=== PATIENT | female | born 1970 | race Caucasian/White ===

== ENCOUNTER → 2017-07-09 | Outpatient (CLI) | payer OTHER ==
--- NOTE | 2017-07-14 23:03 | MR ---
EXAMINATION TYPE: MR shoulder LT wo con DATE OF EXAM: 07/09/2017 COMPARISON: NONE HISTORY: Left shoulder pain TECHNIQUE: Multiplanar, multisequence imaging of the left shoulder is performed without contrast. FINDINGS: Subscapularis tendon is intact. Biceps tendon is intact. Glenoid ronaldo appear intact. There is metal artifact from surgery at the greater tuberosity of the humerus. There is no subacromia l impingement. The supraspinatus tendon shows very mild increased signal without a full-thickness tea r. There is no retraction. There is minor spurring at the AC joint. I see no fracture. There is some thickening of the inferior glenoid labrum. There is minor spurring on the inferior humeral head. 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 No evidence of rotator cuff comp lete tear. Minimal signal changes in the supraspinatus tendon consistent with mild tendinitis.
== END | disposition home or self-care (01) ==
LOC: RADMRIMAIN 10:34
PROVIDERS: ATTEND Orthopaedic Surgery
DX: Z47.89 Encounter for other orthopedic aftercare (principal); M19.012 Primary osteoarthritis, left shoulder

== ENCOUNTER → 2017-10-05 | Outpatient (CLI) | payer OTHER ==
--- NOTE | 2017-10-06 14:13 | MM ---
Reason for exam: screening (asymptomatic). History: Patient is postmenopausal. Family history of breast cancer in paternal grandmother and breast cancer in paternal aunt. Physical Findings: A clinical breast exam by your physician is recommended on an annual basis and results should be correlated with mammographic findings. MG Screening Mammo w CAD Bilateral CC and MLO view(s) were taken. The breast tissue is heterogeneously dense. This may lower the sensitivity of mammography. No suspicious abnormality. ASSESSMENT: Negative, BI-RAD 1 RECOMMENDATION: Routine screening mammogram of both breasts in 1 year.
== END | disposition home or self-care (01) ==
LOC: RADMAMWWP 10:50
PROVIDERS: ATTEND Family Medicine
DX: Z12.31 Encounter for screening mammogram for malignant neoplasm of breast (principal)
CPT/HCPCS: 77067

== ENCOUNTER 2018-05-06 00:54 | Emergency (ER) | payer OTHER ==
[2018-05-06 01:02] VITALS: BP 137/98; RESP 18; TEMP 98
--- NOTE | 2018-05-06 01:17 | ED ---
General Adult HPI - General Chief complaint: Upper Respiratory Infection Stated complaint: SOB,congestion Time Seen by Provider: 05/06/18 01:07 Source: patient Mode of arrival: ambulatory Limitations: no limitations - History of Present Illness Initial comments: Rajani is a pleasant 47-year-old female who presents to the emergency department today for evaluation of 2 weeks of nonproductive cough. Patient reports that for the past 2 weeks she's had a nonproductive cough as well as some nasal congestion. She reports that her cough seems to be worse at night. She reports feeling a tickle in her throat and feels that she can't cough anything up. She reports that this is been persistent without any improvement. She has tried [id number] medications including cough drops with no improvement. She reports that this evening she just couldn't tolerate it anymore so she came to the ER for evaluation. - Related Data Previous Rx's Medication Instructions Recorded Azithromycin [Zithromax] 0 mg PO DIRECTED #6 tab 05/06/18 Fluticasone Nasal [place] [Flonase 1 spray EA NOSTRIL DAILY #1 bottle 05/06/18 Nasal [place]] Loratadine [Claritin] 10 mg PO DAILY #30 tab 05/06/18 predniSONE 40 mg PO DAILY #10 tab 05/06/18 Allergies Allergy/AdvReac Type Severity Reaction Status Date / Time amoxicillin Allergy Anaphylaxis Verified 05/06/18 01:03 ciprofloxacin Allergy Anaphylaxis Verified 05/06/18 01:03 Penicillins Allergy Anaphylaxis Verified 05/06/18 01:03 tetracycline Allergy Anaphylaxis Verified 05/06/18 01:03 Review of Systems ROS Statement: Those systems with pertinent positive or pertinent negative responses have been documented in the HPI. ROS Other: All systems not noted in ROS Statement are negative. Past Medical History Past Medical History: Hypertension, Pneumonia History of Any Multi-Drug Resistant Organisms: None Reported Past Surgical History: Section, Hysterectomy, Orthopedic Surgery, Tonsillectomy Past Psychological History: No Psychological Hx Reported Smoking Status: Former smoker Past Alcohol Use History: None Reported Past Drug Use History: None Reported General Exam - General Exam Comments Initial Comments: Physical Exam GENERAL: Patient is well-developed and well-nourished. Patient is nontoxic and well- hydrated and is in no distress. HENT: Normocephalic, Atraumatic. Inflame nasal turbinates Post nasal drip TMs with scars bilaterally consistent with history of previous tympanostomy tubes EYES: PERRL, EOMI PULMONARY: Unlabored respirations. No audible rales rhonchi or wheezing was noted. CARDIOVASCULAR: There is a regular rate and rhythm without any murmurs gallops or rubs. ABDOMEN: Soft and nontender with normal bowel sounds. SKIN: Skin is clear with no lesions or rashes and otherwise unremarkable. : Deferred NEUROLOGIC: Patient is alert and oriented x3. Moving all extremities spontaneously MUSCULOSKELETAL: Normal extremities with adequate strength and full range of motion. No lower extremity swelling or edema. No calf tenderness. PSYCHIATRIC: Normal psychiatric evaluation. Limitations: no limitations Limitations: no limitations Course Vital Signs 05/06/18 05/06/18 05/06/18 00:59 01:48 02:01 Temperature 98 F Pulse Rate 87 70 72 Respiratory 18 18 18 Rate Blood Pressure 137/98 O2 Sat by Pulse 98 Oximetry Medical Decision Making - Medical Decision Making Patient was seen and evaluated history is obtained from the patient Patient's history and physical exam are concerning for viral upper respiratory infection versus postnasal drip secondary to ALLERGIES. Chest x-ray was ordered Chest x-ray with no acute findings Results were discussed with the patient she reports only minimal improvement after DuoNeb Supportive care measures including nasal spray, daily antihistamine, short burst of steroids were discussed with patient. Patient is agreeable. Return parameters were discussed with patient pertaining to care were answered and patient was discharged home in stable condition. Disposition Clinical Impression: Upper respiratory infection Disposition: HOME SELF-CARE Condition: Stable Instructions: Upper Respiratory Infection (ED) Prescriptions: Azithromycin [Zithromax] 0 mg PO DIRECTED #6 tab Fluticasone Nasal [place] [Flonase Nasal [place]] 1 spray EA NOSTRIL DAILY #1 bottle Loratadine [Claritin] 10 mg PO DAILY #30 tab predniSONE 40 mg PO DAILY #10 tab Is patient prescribed a controlled substance at d/c from ED?: No Referrals: Tyler Andrade MD [Primary Care Provider] - 1-2 days
[2018-05-06] MEDS ORDERED: IPRATROPIUM-ALBUTEROL 3 ML NEB INHALATION STA (01:40)
--- NOTE | 2018-05-06 01:59 | XR ---
EXAMINATION TYPE: XR chest 2V DATE OF EXAM: 05/06/2018 COMPARISON: NONE HISTORY: Short of breath TECHNIQUE: Frontal and lateral views of the chest are obtained. FINDINGS: Heart and mediastinum are normal. Lungs are clear. Diaphragm is normal. Bony thorax is nor mal. Pulmonary vascularity is normal. IMPRESSION: Normal chest.
[2018-05-06 02:01] VITALS: PULSE 72
== END 2018-05-06 03:14 | disposition home or self-care (01) ==
LOC: EC 00:54
DX: J06.9 Acute upper respiratory infection, unspecified (principal); Z88.0 Allergy status to penicillin; Z88.1 Allergy status to other antibiotic agents; Z87.891 Personal history of nicotine dependence
CPT/HCPCS: 71046; 94640; 99285

== ENCOUNTER → 2018-10-13 | Outpatient (CLI) | payer MEDICARE, OTHER ==
--- NOTE | 2018-10-17 09:15 | MM ---
Reason for exam: screening (asymptomatic). Last mammogram was performed 1 year ago. History: Patient is postmenopausal. Family history of breast cancer in paternal grandmother and breast cancer in paternal aunt. Physical Findings: A clinical breast exam by your physician is recommended on an annual basis and results should be correlated with mammographic findings. MG 3D Screening Mammo W/Cad Bilateral CC and MLO view(s) were taken. Prior study comparison: October 05, 2017, bilateral MG screening mammo w CAD. There are scattered fibroglandular densities. No significant changes when compared with prior studies. ASSESSMENT: Negative, BI-RAD 1 RECOMMENDATION: Routine screening mammogram of both breasts in 1 year.
== END | disposition home or self-care (01) ==
LOC: RADMAMWWP 11:32
PROVIDERS: ATTEND Family Medicine
DX: Z12.31 Encounter for screening mammogram for malignant neoplasm of breast (principal)
CPT/HCPCS: 77063; 77067

== ENCOUNTER 2019-04-18 18:58 | Emergency (ER) | payer MEDICARE, OTHER ==
[2019-04-18 19:07] VITALS: RESP 18
[2019-04-18] MEDS ORDERED: SODIUM CHLORIDE 0.9% 1,000 ML IV STA (19:10)
--- NOTE | 2019-04-18 19:32 | ED ---
General Adult HPI - General Chief complaint: Recheck/Abnormal Lab/Rx Stated complaint: high heart rate Time Seen by Provider: 04/18/19 19:10 Source: patient Mode of arrival: wheelchair Limitations: no limitations - History of Present Illness Initial comments: Dictation was produced using [employer] dictation software. please excuse any gra mmatical, word or spelling errors. Chief Complaint: 48-year-old female presents with instruction from primary care physician come to the emergency department for URI type symptoms. History of Present Illness: He 8-year-old female she has past medical history of hypertension and rheumatoid arthritis. She was at walk-in clinic at her primary care physician's office today when he told her to come to the emergency department. Patient was found to be tachycardic in the 120s. She was checked for flu which was negative according to patient. Patient states she's been having URI symptoms for the last 2-3 days. She reports cough, sore throat and congestion. Patient denies any chest pain or shortness of breath. She denies any abdominal pain. Patient otherwise feels pretty well. She took Tylenol. She states she's been abstaining from cold medications that contain Sudafed or other stimulants. The ROS documented in this emergency department record has been reviewed and confirmed by me. Those systems with pertinent positive or negative responses have been documented in the HPI. All other systems are other negative and/or noncontributory. PHYSICAL EXAM: General Impression: Alert and oriented x3, not in acute distress HEENT: Normocephalic atraumatic, extra-ocular movements intact, pupils equal and reactive to light bilaterally, mucous membranes moist. Cardiovascular: Tachycardic Chest: Lungs clear to auscultation bilaterally, no rhonchi, no wheeze, no rales Abdomen: Bowel sounds present, abdomen soft, non-tender, non-distended, no organomegaly Musculoskeletal: Pulses present and equal in all extremities, no peripheral edema Motor: no focal deficits noted Neurological: CN II-XII grossly intact, no focal motor or sensory deficits noted Skin: Intact with no visualized rashes Psych: Normal affect and mood ED course: 48-year-old female presents with URI-type symptoms as upon arrival shows heart rate of 120, rest of vital signs within acceptable limits. Patient was sent here from walking clinic because she was tachycardic Laboratory evaluation obtained. Leukocytosis of 15.7. Metabolic panel is unremarkable. Urinalysis and group A strep is negative. Chest x-rays negative. Patient given fluids. Heart rate is improved. Patient with for discharge. Click or presentation likely secondary to viral URI. Patient told to follow-up with her primary care physician upon discharge. EKG interpretation: Ventricular rate 107, sinus tachycardia,. 146, QRS 70, QTc 435.. No OR prolongation, no QTC prolongation, no ST or T-wave changes noted. Overall, this EKG is unremarkable - Related Data Home Medications Medication Instructions Recorded Confirmed Losartan [Cozaar] 25 mg PO DAILY 04/18/19 04/18/19 Allergies Allergy/AdvReac Type Severity Reaction Status Date / Time amoxicillin Allergy Anaphylaxis Verified 04/18/19 20:17 ciprofloxacin Allergy Anaphylaxis Verified 04/18/19 20:17 Penicillins Allergy Anaphylaxis Verified 04/18/19 20:17 tetracycline Allergy Anaphylaxis Verified 04/18/19 20:17 Review of Systems ROS Statement: Those systems with pertinent positive or pertinent negative responses have been documented in the HPI. ROS Other: All systems not noted in ROS Statement are negative. Past Medical History Past Medical History: Hypertension, Pneumonia, Rheumatoid Arthritis (RA) History of Any Multi-Drug Resistant Organisms: None Reported Past Surgical History: Section, Hysterectomy, Orthopedic Surgery, Tonsillectomy Past Psychological History: No Psychological Hx Reported Smoking Status: Former smoker Past Alcohol Use History: None Reported Past Drug Use History: None Reported General Exam Limitations: no limitations Course Vital Signs 04/18/19 04/18/19 19:03 21:17 Temperature 98.2 F 98.1 F Pulse Rate 120 H 88 Respiratory 18 18 Rate Blood Pressure 144/93 140/108 O2 Sat by Pulse 97 99 Oximetry Medical Decision Making - Lab Data Result diagrams: 04/18/19 19:47 04/18/19 19:47 Lab Results 04/18/19 04/18/19 04/18/19 Range/Units 19:47 19:47 19:47 WBC 15.7 H (3.8-10.6) k/uL RBC 5.20 (3.80-5.40) m/uL Hgb 14.8 (11.4-16.0) gm/dL Hct 44.0 (34.0-46.0) % MCV 84.5 (80.0-100.0) fL MCH 28.4 (25.0-35.0) pg MCHC 33.6 (31.0-37.0) g/dL RDW 12.4 (11.5-15.5) % Plt Count 266 (150-450) k/uL Neutrophils % 84 % Lymphocytes % 9 % Monocytes % 4 % Eosinophils % 2 % Basophils % 1 % Neutrophils # 13.2 H (1.3-7.7) k/uL Lymphocytes # 1.4 (1.0-4.8) k/uL Monocytes # 0.6 (0-1.0) k/uL Eosinophils # 0.3 (0-0.7) k/uL Basophils # 0.1 (0-0.2) k/uL Sodium 139 (137-145) mmol/L Potassium 4.2 (3.5-5.1) mmol/L Chloride 106 (98-107) mmol/L Carbon Dioxide 24 (22-30) mmol/L Anion Gap 9 mmol/L BUN 17 (7-17) mg/dL Creatinine 0.74 (0.52-1.04) mg/dL Est GFR (CKD-EPI)AfAm >90 (>60 ml/min/1.73 sqM) Est GFR (CKD-EPI)NonAf >90 (>60 ml/min/1.73 sqM) Glucose 120 H (74-99) mg/dL Calcium 9.7 (8.4-10.2) mg/dL Magnesium 2.0 (1.6-2.3) mg/dL Troponin I <0.012 (0.000-0.034) ng/mL TSH 1.500 (0.465-4.680) mIU/L Urine Color Urine Appearance (Clear) Urine pH (5.0-8.0) Ur Specific [place] (1.001-1.035) Urine Protein (Negative) Urine Glucose (UA) (Negative) Urine Ketones (Negative) Urine Blood (Negative) Urine Nitrite (Negative) Urine Bilirubin (Negative) Urine Urobilinogen (<2.0) mg/dL Ur Leukocyte Esterase (Negative) Group A Strep Rapid (Negative) 04/18/19 04/18/19 Range/Units 19:55 19:55 WBC (3.8-10.6) k/uL RBC (3.80-5.40) m/uL Hgb (11.4-16.0) gm/dL Hct (34.0-46.0) % MCV (80.0-100.0) fL MCH (25.0-35.0) pg MCHC (31.0-37.0) g/dL RDW (11.5-15.5) % Plt Count (150-450) k/uL Neutrophils % % Lymphocytes % % Monocytes % % Eosinophils % % Basophils % % Neutrophils # (1.3-7.7) k/uL Lymphocytes # (1.0-4.8) k/uL Monocytes # (0-1.0) k/uL Eosinophils # (0-0.7) k/uL Basophils # (0-0.2) k/uL Sodium (137-145) mmol/L Potassium (3.5-5.1) mmol/L Chloride (98-107) mmol/L Carbon Dioxide (22-30) mmol/L Anion Gap mmol/L BUN (7-17) mg/dL Creatinine (0.52-1.04) mg/dL Est GFR (CKD-EPI)AfAm (>60 ml/min/1.73 sqM) Est GFR (CKD-EPI)NonAf (>60 ml/min/1.73 sqM) Glucose (74-99) mg/dL Calcium (8.4-10.2) mg/dL Magnesium (1.6-2.3) mg/dL Troponin I (0.000-0.034) ng/mL TSH (0.465-4.680) mIU/L Urine Color Yellow Urine Appearance Clear (Clear) Urine pH 5.5 (5.0-8.0) Ur Specific [place] 1.018 (1.001-1.035) Urine Protein Negative (Negative) Urine Glucose (UA) Negative (Negative) Urine Ketones Negative (Negative) Urine Blood Negative (Negative) Urine Nitrite Negative (Negative) Urine Bilirubin Negative (Negative) Urine Urobilinogen <2.0 (<2.0) mg/dL Ur Leukocyte Esterase Negative (Negative) Group A Strep Rapid Negative (Negative) Disposition Clinical Impression: URI (upper respiratory infection) Disposition: HOME SELF-CARE Condition: Good Instructions (If sedation given, give patient instructions): Upper Respiratory Infection (DC) Is patient prescribed a controlled substance at d/c from ED?: No Referrals: Tyler Andrade MD [Primary Care Provider] - 1-2 days Time of Disposition: 22:07
[2019-04-18 20:10] LABS: Basophils # (A) 0.1 k/uL (0-0.2); Basophils % (A) 1 %; Eosinophils # (A) 0.3 k/uL (0-0.7); Eosinophils % (A) 2 %; HGB 14.8 gm/dL (11.4-16.0); Lymphocytes # (A) 1.4 k/uL (1.0-4.8); Lymphocytes % (A) 9 %; MCH 28.4 pg (25.0-35.0); MCHC 33.6 g/dL (31.0-37.0); MCV 84.5 fL (80.0-100.0); Mean Platelet Volume 7.5; Monocytes # (A) 0.6 k/uL (0-1.0); Monocytes % (A) 4 %; Neutrophils # (A) 13.2 k/uL (1.3-7.7); Neutrophils % (A) 84 %; Platelet Count 266 k/uL (150-450); RDW 12.4 % (11.5-15.5); WBC 15.7 k/uL (3.8-10.6)
[2019-04-18 20:15] LABS: Appearance,Urine Clear (Clear); Bilirubin,Urine Negative (Negative); Blood,Urine Negative (Negative); Color,Urine Yellow; Glucose,Urine (UA) Negative (Negative); Ketones,Urine Negative (Negative); Leukocyte Esterase,Urine Negative (Negative); Nitrite,Urine Negative (Negative); PH, Urine 5.5 (5.0-8.0); Protein,Urine Negative (Negative); Specific Gravity,Urine 1.018 (1.001-1.035); Urobilinogen,Urine <2.0 mg/dL (<2.0)
[2019-04-18 20:20] LABS: African American GFR (CKD) >90 (>60 ml/min/1.73 sqM); Anion Gap 9 mmol/L; Blood Urea Nitrogen 17 mg/dL (7-17); Calcium 9.7 mg/dL (8.4-10.2); Carbon Dioxide 24 mmol/L (22-30); Chloride 106 mmol/L (98-107); Glucose 120 mg/dL (74-99); Non-African American GFR(CKD) >90 (>60 ml/min/1.73 sqM); Potassium 4.2 mmol/L (3.5-5.1); Sodium 139 mmol/L (137-145)
[2019-04-18 21:37] VITALS: BP 140/108; PULSE 88; TEMP 98.1
--- NOTE | 2019-04-18 21:57 | XR ---
EXAMINATION: XR chest 2V DATE AND TIME: 04/18/2019 9:20 PM CLINICAL INDICATION: PHH; cough TECHNIQUE: Departmental protocol COMPARISON: 05/06/2018 FINDINGS: The lungs are clear. The pleural spaces are negative. The cardiac silhouette is not enlarged. The remainder of the mediastinal silhouette is unremarkable. The skeletal structures and soft tissues are negative for acute findings. IMPRESSION: NO ACUTE PROCESS.
== END 2019-04-18 22:19 | disposition home or self-care (01) ==
LOC: EC 18:58
DX: J06.9 Acute upper respiratory infection, unspecified (principal); R00.0 Tachycardia, unspecified; I10 Essential (primary) hypertension; Z87.891 Personal history of nicotine dependence; Z88.0 Allergy status to penicillin; Z88.1 Allergy status to other antibiotic agents; Z79.899 Other long term (current) drug therapy
CPT/HCPCS: 36415; 71046; 80048; 81003; 83735; 84443; 84484; 85025; 87081; 87430; 93005; 96360; 99285

== ENCOUNTER → 2019-10-31 | Day surgery (SDC) | payer MEDICARE, OTHER ==
[2019-10-27 14:48] VITALS: BMI 34.2
[~2019-10-31] MED LIST: ACETAMINOPHEN TAB 500 MG TAB ONE; ACETAMINOPHEN TAB 500 MG TAB PO ONE; BUPIVACAIN-EPI 0.25%-1:200,000 30 ML VIAL SQ ONE; DEXAMETHASONE SOD PHOSPHATE 10 MG/ML 1 ML VIAL IV ONE; GLYCOPYRROLATE 0.2 MG/ML 2 ML VIAL ONE; HEPARIN SODIUM,PORCINE 5,000 UNIT/ML 1 ML VIAL ONE; HEPARIN SODIUM,PORCINE 5,000 UNIT/ML 1 ML VIAL SQ ONE; HYDROcodone/APAP 5-325MG 1 EACH TAB ONE; HYDROcodone/APAP 5-325MG 1 EACH TAB PO ONE; HYDROmorphone (PF) 1 MG/ML ONE; HYDROmorphone 0.5 MG/0.5 ML SYRINGE IVP PRN; KETOROLAC 30 MG/ML 1 ML VIAL ONE; LACTATED RINGERS 1,000 ML IV ONE; LACTATED RINGERS 1,000 ML IV SCH; LIDOCAINE 1% (10MG/ML) FOR IV START INTRADERMA ONE; LIDOCAINE 1% INJ 10MG/ML (20 ML MDV) ONE; MIDAZOLAM 2 MG/2 ML VIAL IV ONE; MIDAZOLAM 2 MG/2 ML VIAL IV PRN; MIDAZOLAM 2 MG/2 ML VIAL ONE; NEOSTIGMINE 1 MG/ML 10 ML VIAL ONE; ONDANSETRON 4 MG/2 ML VIAL IVP ONE; ONDANSETRON 4 MG/2 ML VIAL ONE; PROPOFOL 10 MG/ML 20 ML VIAL IV ONE; Pre Op ABX Message 1 EACH MISC MISCELLANE ONE; ROCURONIUM BROMIDE 10 MG/ML 5 ML VIAL IV ONE; SCOPOLAMINE 1.5MG/72HR PATCH TRANSDERM ONE; SUCCINYLCHOLINE CHLORIDE 100 MG/5 ML SYR IV ONE; fentaNYL (PF) 50 MCG/ML 2 ML AMP ONE
[2019-10-31 06:35] VITALS: RESP 16
--- NOTE | 2019-10-31 08:22 | P.GSHP ---
History of Present Illness H&P Date: 10/31/19 Chief Complaint: Abdominal pain, adhesions This a 48-year-old female complaints of chronic left-sided abdominal pain. Patient's previous history of lysis of adhesions. Patient states pain is similar to her previous adhesions. She presents today for laparoscopic lysis of adhesions. Past Medical History Past Medical History: Hypertension, Pneumonia, Rheumatoid Arthritis (RA) History of Any Multi-Drug Resistant Organisms: None Reported Past Surgical History: Section, Hysterectomy, Orthopedic Surgery, Tonsillectomy Additional Past Surgical History / Comment(s): L rotator cuff repair. Past Anesthesia/Blood Transfusion Reactions: No Reported Reaction Smoking Status: Former smoker - Past Family History Mother Family Medical History: Myocardial Infarction ([place]) Father Family Medical History: Cancer Additional Family Medical History / Comment(s): Lung Medications and Allergies Home Medications Medication Instructions Recorded Confirmed Type Losartan [Cozaar] 25 mg PO DAILY 04/18/19 10/31/19 History Allergies Allergy/AdvReac Type Severity Reaction Status Date / Time amoxicillin Allergy Anaphylaxis Verified 10/31/19 06:22 azithromycin Allergy Rash/Hives Verified 10/31/19 06:22 [From Zithromax Z-Jhonathan] ciprofloxacin Allergy Anaphylaxis Verified 10/31/19 06:22 Penicillins Allergy Anaphylaxis Verified 10/31/19 06:22 tetracycline Allergy Anaphylaxis Verified 10/31/19 06:22 Surgical - Exam Vital Signs Temp Pulse Resp BP Pulse Ox 96.9 F L 80 16 139/85 95 10/31/19 06:33 10/31/19 06:33 10/31/19 06:33 10/31/19 06:33 10/31/19 06:33 - General well developed, well nourished, no distress - Eyes PERRL - ENT normal pinna - Neck no masses - Respiratory normal expansion - Cardiovascular Rhythm: regular - Abdomen Multiple laparoscopic incision scars Abdomen: soft, non tender Assessment and Plan Assessment: Left-sided abdominal pain. Adhesions. Patient will undergo laparoscopic lysis of adhesions. Patient will resume surgery including conversion O procedure and injury to the stomach liver spleen small bowel and colon
--- NOTE | 2019-10-31 08:24 | P.OP ---
Date of Procedure: 10/31/19 Preoperative Diagnosis: Adhesions Postoperative Diagnosis: Adhesions Procedure(s) Performed: Laparoscopic lysis of adhesions Anesthesia: DANIEL Surgeon: Darinel Garcia Pathology: other (Adhesion) Condition: stable Disposition: PACU Description of Procedure: The patient's placed the operative table in supine position. She received general anesthesia. Her abdomen was prepped and draped usual fashion. An infraumbilical skin incision was made and then the umbilicus was grasped the cord clamp. The varices placed. Cavity. Position of her is no confirmed with positive drop test. The abdomen was then insufflated. After adequate insufflation a fibrillar trocar is placed. Cavity and then the laparoscope placed. Cavity. Next a 5 atrocious placed in the midline epigastric and suprapubic position and another 5 atrocious placed in the right lateral position. The left abdominal wall was examined. There were adhesions between the sigmoid colon and the abdominal wall. There was also a adhesive band located between the omentum and the abdominal wall where previous trocar site was. Using Harmonic scissors the adhesions were lysed. Care was taken to identify and preserve the bowel wall. No bleeding was seen. The portion of the adhesive band was excised and sent to pathology. The trochars withdrawn. The abdomen was desufflated. The skin was then closed interrupted 3-0 Monocryl suture. Dermabond was applied. Patient tolerated procedure well and sent to recovery in stable condition.
[2019-10-31 08:42] VITALS: TEMP 97
[2019-10-31 09:31] VITALS: PULSE 60
[2019-10-31 09:51] VITALS: BP 107/65
== END ==
LOC: OR 06:03
PROVIDERS: ATTEND Surgery
DX: K56.50 Intestinal adhesions [bands], unspecified as to partial versus complete obstruction (principal); N94.89 Other specified conditions associated with female genital organs and menstrual cycle; I10 Essential (primary) hypertension; M06.9 Rheumatoid arthritis, unspecified; K21.9 Gastro-esophageal reflux disease without esophagitis; Z87.01 Personal history of pneumonia (recurrent); Z90.710 Acquired absence of both cervix and uterus; Z90.89 Acquired absence of other organs; Z98.890 Other specified postprocedural states; Z87.891 Personal history of nicotine dependence; Z79.899 Other long term (current) drug therapy; Z88.0 Allergy status to penicillin; Z88.1 Allergy status to other antibiotic agents; Z82.49 Family history of ischemic heart disease and other diseases of the circulatory system; Z80.1 Family history of malignant neoplasm of trachea, bronchus and lung
CPT/HCPCS: 88305; 44180; J2250; J1644; J1100; J2710; J2405; J2001; J3010; J1885; J1170; J0330; J2704

== ENCOUNTER 2019-12-10 20:41 | Emergency (ER) | payer MEDICARE, OTHER ==
[2019-12-10 21:08] VITALS: RESP 16
[2019-12-10] MEDS ORDERED: SODIUM CHLORIDE 0.9% 500 ML 500 ML IV STA (21:46)
[2019-12-10 22:29] LABS: Basophils # (A) 0.1 k/uL (0-0.2); Basophils % (A) 1 %; Eosinophils # (A) 0.2 k/uL (0-0.7); Eosinophils % (A) 1 %; HCT 44.2 % (34.0-46.0); HGB 14.7 gm/dL (11.4-16.0); Lymphocytes # (A) 1.5 k/uL (1.0-4.8); Lymphocytes % (A) 11 %; MCH 28.1 pg (25.0-35.0); MCHC 33.3 g/dL (31.0-37.0); MCV 84.6 fL (80.0-100.0); Mean Platelet Volume 7.3; Monocytes # (A) 0.7 k/uL (0-1.0); Monocytes % (A) 5 %; Neutrophils # (A) 10.9 k/uL (1.3-7.7); Neutrophils % (A) 81 %; Platelet Count 267 k/uL (150-450); RBC 5.23 m/uL (3.80-5.40); RDW 12.7 % (11.5-15.5); WBC 13.5 k/uL (3.8-10.6)
[2019-12-10 22:36] LABS: Appearance,Urine Clear (Clear); Bilirubin,Urine Negative (Negative); Blood,Urine Negative (Negative); Color,Urine Light Yellow; Glucose,Urine (UA) Negative (Negative); Ketones,Urine Negative (Negative); Leukocyte Esterase,Urine Negative (Negative); Nitrite,Urine Negative (Negative); PH, Urine 5.5 (5.0-8.0); Protein,Urine Negative (Negative); Specific Gravity,Urine 1.015 (1.001-1.035); Urobilinogen,Urine <2.0 mg/dL (<2.0)
[2019-12-10 22:41] LABS: ALT 25 U/L (4-34); AST 29 U/L (14-36); African American GFR (CKD) >90 (>60 ml/min/1.73 sqM); Albumin 4.5 g/dL (3.5-5.0); Alkaline Phosphatase 85 U/L (38-126); Anion Gap 9 mmol/L; Blood Urea Nitrogen 19 mg/dL (7-17); Calcium 9.4 mg/dL (8.4-10.2); Carbon Dioxide 22 mmol/L (22-30); Chloride 107 mmol/L (98-107); Glucose 112 mg/dL (74-99); Lipase 61 U/L (23-300); Non-African American GFR(CKD) >90 (>60 ml/min/1.73 sqM); Potassium 4.6 mmol/L (3.5-5.1); Sodium 138 mmol/L (137-145); Total Bilirubin 0.6 mg/dL (0.2-1.3); Total Protein 7.1 g/dL (6.3-8.2)
--- NOTE | 2019-12-10 23:44 | CT ---
EXAMINATION TYPE: CT abdomen pelvis w con DATE OF EXAM: 12/10/2019 COMPARISON: None HISTORY: RLQ pain CT DLP: 2019.6 mGycm Automated exposure control for dose reduction was used. CONTRAST: Performed with IV Contrast, patient injected with 100 mL of Isovue 300. Images were obtained from the diaphragm to the floor the pelvis with IV contrast. Lung bases are clear. There is no pleural effusion. Heart size is normal. There is no pericardial eff usion. Liver spleen stomach pancreas gallbladder appear normal. Bile ducts are not dilated. There is no adrenal mass. Kidneys show satisfactory contrast opacification. There is no hydronephrosi s. There is normal excretion on the delayed images. There is no retroperitoneal adenopathy. Bladder distends smoothly. There is no inguinal hernia. There is no free fluid in the pelvis. There i s some fat stranding around the sigmoid colon with multiple sigmoid diverticula. The appendix is post erior and appears normal. There is no evidence of bowel obstruction. There is no ascites or free air. There is no mesenteric ad enopathy. Lumbar vertebra have normal spacing and alignment. There is mild narrowing at L4-5 disc. There is sma ll posterior disc herniation at L4-5. There is no compression fracture. The posterior elements are in tact. The bony pelvis appears intact. IMPRESSION: Sigmoid diverticulosis with evidence of diverticulitis involving the MID sigmoid colon. No drainable fluid collection. Normal appendix.
[2019-12-10 23:51] VITALS: BP 161/95; PULSE 85; TEMP 99.6
[2019-12-11] MEDS ORDERED: metroNIDAZOLE 500 MG TAB PO STA (00:01)
--- NOTE | 2019-12-11 00:11 | ED ---
General Adult HPI - General Chief complaint: Abdominal Pain Stated complaint: Abdominal Pain Time Seen by Provider: 12/10/19 21:30 Source: patient, RN notes reviewed, old records reviewed Mode of arrival: wheelchair Limitations: no limitations - History of Present Illness Initial comments: 49-year-old female patient previously for chief complaint of lower quadrant abdominal pain. Began approximately 2 PM. Patient did have lysis of adhesions [address] Cabrera. Denies any nausea or vomiting. Denies any other complaints. Systemic: Pt denies fatigue, fever/chills, rash. Pt denies weakness, night sweats, weight loss. Neuro: Pt denies headache, visual disturbances, syncope or pre-syncope. HEENT: Pt denies ocular discharge or irritation, otalgia, rhinorrhea, pharyngitis or notable lymphadenopathy. Cardiopulmonary: Pt denies chest pain, SOB, heart palpitations, dyspnea on exertion. Abdominal/GI: Pt denies n/v/d. : Pt denies dysuria, burning w/ urination, frequency/urgency. Denies new onset urinary or bowel incontinence. MSK: Pt denies myalgia, loss of strength or function in extremities. Neuro: Pt denies new onset weakness, paresthesias. - Related Data Home Medications Medication Instructions Recorded Confirmed Losartan [Cozaar] 25 mg PO DAILY 04/18/19 10/31/19 Previous Rx's Medication Instructions Recorded Docusate [Colace] 100 mg PO BID #20 capsule 10/31/19 HYDROcodone/APAP 5-325MG [[place] 1 tab PO Q6HR PRN #10 tab 10/31/19 5-325] Sulfamethox-Tmp 800-160Mg [Bactrim 1 tab PO Q12HR #20 tab 12/11/19 DS 800-160 mg] metroNIDAZOLE [Flagyl] 500 mg PO TID #21 tab 12/11/19 Allergies Allergy/AdvReac Type Severity Reaction Status Date / Time amoxicillin Allergy Anaphylaxis Verified 12/10/19 21:08 azithromycin Allergy Rash/Hives Verified 12/10/19 21:08 [From Zithromax Z-Jhonathan] ciprofloxacin Allergy Anaphylaxis Verified 12/10/19 21:08 Penicillins Allergy Anaphylaxis Verified 12/10/19 21:08 tetracycline Allergy Anaphylaxis Verified 12/10/19 21:08 Review of Systems ROS Statement: Those systems with pertinent positive or pertinent negative responses have been documented in the HPI. ROS Other: All systems not noted in ROS Statement are negative. Past Medical History Past Medical History: Hypertension, Pneumonia, Rheumatoid Arthritis (RA) History of Any Multi-Drug Resistant Organisms: None Reported Past Surgical History: Section, Hysterectomy, Orthopedic Surgery, Tonsillectomy Additional Past Surgical History / Comment(s): L rotator cuff repair. Adhesion surgery Past Anesthesia/Blood Transfusion Reactions: No Reported Reaction Past Psychological History: No Psychological Hx Reported Smoking Status: Former smoker Past Alcohol Use History: None Reported Past Drug Use History: None Reported - Past Family History Mother Family Medical History: Myocardial Infarction ([place]) Father Family Medical History: Cancer Additional Family Medical History / Comment(s): Lung General Exam - General Exam Comments Initial Comments: Constitutional: NAD, AOX3, Pt has pleasant affect. HEENT: NC/AT, trachea midline, neck supple, no lymphadenopathy. Posterior pharynx non erythematous, without exudates. External ears appear normal, without discharge. Mucous membranes moist. Eyes PERRLA, EOM intact. There is no scleral icterus. No pallor noted. Cardiopulmonary: RRR, no murmurs, rubs or gallops, no JVD noted. Lungs CTAB in anterior and posterior cordero. No peripheral edema. Abdominal exam: Abdomen soft and non-distended. Abdomen mildly tender to palpation left lower quadrant region.. Bowel sounds active in LLQ. No hepatosplenomegaly. No ecchymosis Neuro: CN II-XII grossly intact. No nuchal rigidity. No raccon eyes, no vallejo sign, no hemotympanum. No cervical spinal tenderness. MSK: No posterior calf tenderness bilaterally, homans sign negative bilaterally. Posterior tibialis and radial pulse +2 bilaterally. Sensation intact in upper and lower extremities. Full active ROM in upper and lower extremities, 5/5 stregnth. Limitations: no limitations Course Vital Signs 12/10/19 12/10/19 21:05 23:50 Temperature 99.7 F H 99.6 F Pulse Rate 88 85 Respiratory 16 16 Rate Blood Pressure 158/109 161/95 O2 Sat by Pulse 98 97 Oximetry Medical Decision Making - Medical Decision Making 49 year old female patient presents to ED with left lower quadrant abdominal pain which began earlier today. Patient did have surgery about 4 weeks ago to take down adhesions. Nasal exam displayed left lower quadrant tenderness. Laboratory investigations revealed mild leukocytosis. CT abdomen and pelvis confirmed diverticulitis no abscess no perforation. Patient has significant ALLERGY list. Has true anaphylaxis reportedly to amoxicillin fluoroquinolones tetracyclines. Patient will be placed on Bactrim and Flagyl after discussion with pharmacy about best antibiotic options. We'll have close follow-up with the primary care provider andDr. Cabrera. And will return to ED with any worsensing symptoms. Case discussed with Dr. Thomas. - Lab Data Result diagrams: 12/10/19 22:09 12/10/19 22:09 Lab Results 12/10/19 12/10/19 12/10/19 Range/Units 22:09 22:09 22:09 WBC 13.5 H (3.8-10.6) k/uL RBC 5.23 (3.80-5.40) m/uL Hgb 14.7 (11.4-16.0) gm/dL Hct 44.2 (34.0-46.0) % MCV 84.6 (80.0-100.0) fL MCH 28.1 (25.0-35.0) pg MCHC 33.3 (31.0-37.0) g/dL RDW 12.7 (11.5-15.5) % Plt Count 267 (150-450) k/uL Neutrophils % 81 % Lymphocytes % 11 % Monocytes % 5 % Eosinophils % 1 % Basophils % 1 % Neutrophils # 10.9 H (1.3-7.7) k/uL Lymphocytes # 1.5 (1.0-4.8) k/uL Monocytes # 0.7 (0-1.0) k/uL Eosinophils # 0.2 (0-0.7) k/uL Basophils # 0.1 (0-0.2) k/uL Sodium 138 (137-145) mmol/L Potassium 4.6 (3.5-5.1) mmol/L Chloride 107 (98-107) mmol/L Carbon Dioxide 22 (22-30) mmol/L Anion Gap 9 mmol/L BUN 19 H (7-17) mg/dL Creatinine 0.64 (0.52-1.04) mg/dL Est GFR (CKD-EPI)AfAm >90 (>60 ml/min/1.73 sqM) Est GFR (CKD-EPI)NonAf >90 (>60 ml/min/1.73 sqM) Glucose 112 H (74-99) mg/dL Plasma Lactic Acid Live (0.7-2.0) mmol/L Calcium 9.4 (8.4-10.2) mg/dL Total Bilirubin 0.6 (0.2-1.3) mg/dL AST 29 (14-36) U/L ALT 25 (4-34) U/L Alkaline Phosphatase 85 (38-126) U/L Total Protein 7.1 (6.3-8.2) g/dL Albumin 4.5 (3.5-5.0) g/dL Lipase 61 (23-300) U/L Urine Color Light Yellow Urine Appearance Clear (Clear) Urine pH 5.5 (5.0-8.0) Ur Specific [place] 1.015 (1.001-1.035) Urine Protein Negative (Negative) Urine Glucose (UA) Negative (Negative) Urine Ketones Negative (Negative) Urine Blood Negative (Negative) Urine Nitrite Negative (Negative) Urine Bilirubin Negative (Negative) Urine Urobilinogen <2.0 (<2.0) mg/dL Ur Leukocyte Esterase Negative (Negative) 12/10/19 Range/Units 22:17 WBC (3.8-10.6) k/uL RBC (3.80-5.40) m/uL Hgb (11.4-16.0) gm/dL Hct (34.0-46.0) % MCV (80.0-100.0) fL MCH (25.0-35.0) pg MCHC (31.0-37.0) g/dL RDW (11.5-15.5) % Plt Count (150-450) k/uL Neutrophils % % Lymphocytes % % Monocytes % % Eosinophils % % Basophils % % Neutrophils # (1.3-7.7) k/uL Lymphocytes # (1.0-4.8) k/uL Monocytes # (0-1.0) k/uL Eosinophils # (0-0.7) k/uL Basophils # (0-0.2) k/uL Sodium (137-145) mmol/L Potassium (3.5-5.1) mmol/L Chloride (98-107) mmol/L Carbon Dioxide (22-30) mmol/L Anion Gap mmol/L BUN (7-17) mg/dL Creatinine (0.52-1.04) mg/dL Est GFR (CKD-EPI)AfAm (>60 ml/min/1.73 sqM) Est GFR (CKD-EPI)NonAf (>60 ml/min/1.73 sqM) Glucose (74-99) mg/dL Plasma Lactic Acid Live 1.7 (0.7-2.0) mmol/L Calcium (8.4-10.2) mg/dL Total Bilirubin (0.2-1.3) mg/dL AST (14-36) U/L ALT (4-34) U/L Alkaline Phosphatase (38-126) U/L Total Protein (6.3-8.2) g/dL Albumin (3.5-5.0) g/dL Lipase (23-300) U/L Urine Color Urine Appearance (Clear) Urine pH (5.0-8.0) Ur Specific [place] (1.001-1.035) Urine Protein (Negative) Urine Glucose (UA) (Negative) Urine Ketones (Negative) Urine Blood (Negative) Urine Nitrite (Negative) Urine Bilirubin (Negative) Urine Urobilinogen (<2.0) mg/dL Ur Leukocyte Esterase (Negative) Disposition Clinical Impression: Diverticulitis Disposition: HOME SELF-CARE Condition: Stable Instructions (If sedation given, give patient instructions): Diverticulitis (ED) Additional Instructions: Take antibiotics as directed. Follow up with primary care provider and surgeon tomorrow. Return to ER with any worsening symptoms. Does not drink any alcohol while taking these medications. Prescriptions: Sulfamethox-Tmp 800-160Mg [Bactrim DS 800-160 mg] 1 tab PO Q12HR #20 tab metroNIDAZOLE [Flagyl] 500 mg PO TID #21 tab Is patient prescribed a controlled substance at d/c from ED?: No Referrals: Tyler Andrade MD [Primary Care Provider] - 1-2 days Darinel Garcia MD [STAFF PHYSICIAN] - 1-2 days
[2019-12-11] MEDS ORDERED: SULFAMETH-TMP DS STARTER PACK 2 TAB BTL PO STA (00:13)
[2019-12-11] MEDS ORDERED: SULFAMETHOX-TMP 800-160MG 1 EACH TAB PO STA (00:13)
[2019-12-11] MEDS ORDERED: ACET/COD 300 MG/30 MG STARTER PACK 6 TAB BTL PO STA (00:36)
[2019-12-11] MEDS ORDERED: ONDANSETRON 4 MG ODT STARTER PACK 2 TAB BTL PO STA (00:42)
== END 2019-12-11 00:47 | disposition home or self-care (01) ==
LOC: EC 20:41
DX: K57.32 Diverticulitis of large intestine without perforation or abscess without bleeding (principal); D72.829 Elevated white blood cell count, unspecified; I10 Essential (primary) hypertension; Z79.899 Other long term (current) drug therapy; Z87.891 Personal history of nicotine dependence; Z88.0 Allergy status to penicillin; Z88.1 Allergy status to other antibiotic agents
CPT/HCPCS: 36415; 80053; 83605; 83690; 85025; 81003; 74177; 96360; 99284; S0119; Q9967

== ENCOUNTER 2019-12-14 16:51 | Inpatient (IN) | payer MEDICARE, OTHER ==
[2019-12-14] MEDS ORDERED: SODIUM CHLORIDE 0.9% 500 ML 500 ML IV STA (17:32)
[2019-12-14] MEDS ORDERED: MORPHINE SULFATE 4 MG/ML SYRINGE IV STA (17:32)
[2019-12-14] MEDS ORDERED: SODIUM CHLORIDE 0.9% 1,000 ML IV ONE (17:32)
[2019-12-14] MEDS ORDERED: SODIUM CHLORIDE 0.9% 1,000 ML IV STA ×2 (17:32)
--- NOTE | 2019-12-14 17:36 | ED ---
Abdominal Pain HPI - General Chief Complaint: Abdominal Pain Stated Complaint: Revisit Diverticulitis Time Seen by Provider: 12/14/19 16:59 Source: patient, RN notes reviewed, old records reviewed Mode of arrival: wheelchair Limitations: no limitations - History of Present Illness Initial Comments: This is a 49-year-old female DF for evaluation patient resents for abdominal pain nausea no vomiting no travel history no sick contacts. Patient is recent diagnosis of diverticulitis on antibiotics and pain control at home pain is persistent worsening nausea vomiting unable to keep down medications. Unable to keep down fluid. Seen by Dr. De Souza in the office today as a recheck and sent ER for evaluation MD Complaint: abdominal pain -: days(s) Location: diffuse, LLQ, suprapubic Radiation: L flank Severity: severe Severity scale (1-10): 8 Quality: cramping, aching Consistency: constant Improves With: nothing Worsens With: nothing Context: other (Known diverticulitis) Associated Symptoms: nausea, vomiting, diarrhea Treatments Prior to Arrival: prescription analgesics - Related Data Home Medications Medication Instructions Recorded Confirmed Losartan [Cozaar] 25 mg PO DAILY 04/18/19 10/31/19 Previous Rx's Medication Instructions Recorded Docusate [Colace] 100 mg PO BID #20 capsule 10/31/19 HYDROcodone/APAP 5-325MG [[place] 1 tab PO Q6HR PRN #10 tab 10/31/19 5-325] Sulfamethox-Tmp 800-160Mg [Bactrim 1 tab PO Q12HR #20 tab 12/11/19 DS 800-160 mg] metroNIDAZOLE [Flagyl] 500 mg PO TID #21 tab 12/11/19 metroNIDAZOLE [Flagyl] 500 mg PO TID 10 Days #30 tab 12/11/19 Allergies Allergy/AdvReac Type Severity Reaction Status Date / Time amoxicillin Allergy Anaphylaxis Verified 12/14/19 17:10 azithromycin Allergy Rash/Hives Verified 12/14/19 17:10 [From Zithromax Z-Jhonathan] ciprofloxacin Allergy Anaphylaxis Verified 12/14/19 17:10 Penicillins Allergy Anaphylaxis Verified 12/14/19 17:10 tetracycline Allergy Anaphylaxis Verified 12/14/19 17:10 Review of Systems ROS Statement: Those systems with pertinent positive or pertinent negative responses have been documented in the HPI. ROS Other: All systems not noted in ROS Statement are negative. Past Medical History Past Medical History: Hypertension, Pneumonia, Rheumatoid Arthritis (RA) Additional Past Medical History / Comment(s): Diverticulitis History of Any Multi-Drug Resistant Organisms: None Reported Past Surgical History: Section, Hysterectomy, Orthopedic Surgery, Tonsillectomy Additional Past Surgical History / Comment(s): L rotator cuff repair. Adhesion surgery Past Anesthesia/Blood Transfusion Reactions: No Reported Reaction Past Psychological History: No Psychological Hx Reported Smoking Status: Former smoker Past Alcohol Use History: None Reported Past Drug Use History: None Reported - Past Family History Mother Family Medical History: Myocardial Infarction ([place]) Father Family Medical History: Cancer Additional Family Medical History / Comment(s): Lung General Exam Limitations: no limitations General appearance: alert, in no apparent distress Head exam: Present: atraumatic, normocephalic, normal inspection Eye exam: Present: normal appearance, PERRL, EOMI. Absent: scleral icterus, conjunctival injection, periorbital swelling ENT exam: Present: normal exam, mucous membranes moist Neck exam: Present: normal inspection. Absent: tenderness, meningismus, lymphadenopathy Respiratory exam: Present: normal lung sounds bilaterally. Absent: respiratory distress, wheezes, rales, rhonchi, stridor Cardiovascular Exam: Present: regular rate, normal rhythm, normal heart sounds. Absent: systolic murmur, diastolic murmur, rubs, gallop, clicks GI/Abdominal exam: Present: soft, normal bowel sounds. Absent: distended, tenderness, guarding, rebound, rigid Extremities exam: Present: normal inspection, full ROM, normal capillary refill. Absent: tenderness, pedal edema, joint swelling, calf tenderness Back exam: Present: normal inspection Neurological exam: Present: alert, oriented X3, CN II-XII intact Psychiatric exam: Present: normal affect, normal mood Skin exam: Present: warm, dry, intact, normal color. Absent: rash Course Vital Signs 12/14/19 17:07 Temperature 98.3 F Pulse Rate 94 Respiratory 18 Rate Blood Pressure 138/91 O2 Sat by Pulse 97 Oximetry - Reevaluation(s) Reevaluation #1: 12/14/19 17:35 Medical records reviewed Reevaluation #2: 12/14/19 17:55 Patient symptoms are improved - Consultations Consultation #1: Spoke with Dr. Garcia regarding need for admission, he is agreeable for admitting patient Medical Decision Making - Medical Decision Making 49 female Tony with persistent abdominal pain fell outpatient treatment of diverticulitis patient will be admitted for more pain control nothing by mouth an IV resuscitation - Radiology Data Radiology results: report reviewed (x-ray x-ray KUB negative for significant acute disease), image reviewed Disposition Clinical Impression: Diverticulitis, Abdominal pain, Failure of outpatient treatment Disposition: ADMITTED IP TO [facility] Condition: Good Is patient prescribed a controlled substance at d/c from ED?: No Referrals: Tyler Andrade MD [Primary Care Provider] - 1-2 days
[2019-12-14 18:27] LABS: Basophils % (A) 1 %; Eosinophils # (A) 0.1 k/uL (0-0.7); Eosinophils % (A) 2 %; HCT 44.2 % (34.0-46.0); HGB 14.6 gm/dL (11.4-16.0); Lymphocytes # (A) 1.4 k/uL (1.0-4.8); Lymphocytes % (A) 24 %; MCH 28.1 pg (25.0-35.0); MCHC 33.1 g/dL (31.0-37.0); MCV 84.8 fL (80.0-100.0); Mean Platelet Volume 7.4; Monocytes # (A) 0.3 k/uL (0-1.0); Monocytes % (A) 5 %; Neutrophils # (A) 3.9 k/uL (1.3-7.7); Neutrophils % (A) 67 %; Platelet Count 294 k/uL (150-450); RBC 5.22 m/uL (3.80-5.40); RDW 12.6 % (11.5-15.5); WBC 5.8 k/uL (3.8-10.6)
--- NOTE | 2019-12-14 18:34 | XR ---
EXAMINATION TYPE: XR KUB DATE OF EXAM: 12/14/2019 COMPARISON: NONE HISTORY: Abdominal pain TECHNIQUE: 2 views FINDINGS: There is no sign of intestinal obstruction or pneumoperitoneum. Fecal pattern is normal. Th ere is no evidence of a mass. There are no pathologic calcifications over the kidneys. Lung bases are clear. IMPRESSION: Nonacute abdomen.
[2019-12-14 18:47] LABS: ALT 21 U/L (4-34); AST 30 U/L (14-36); African American GFR (CKD) >90 (>60 ml/min/1.73 sqM); Albumin 4.4 g/dL (3.5-5.0); Alkaline Phosphatase 72 U/L (38-126); Amylase 45 U/L (30-110); Anion Gap 8 mmol/L; Blood Urea Nitrogen 22 mg/dL (7-17); Calcium 9.6 mg/dL (8.4-10.2); Carbon Dioxide 22 mmol/L (22-30); Chloride 106 mmol/L (98-107); Glucose 97 mg/dL (74-99); Lipase 49 U/L (23-300); Non-African American GFR(CKD) 88 (>60 ml/min/1.73 sqM); Potassium 4.5 mmol/L (3.5-5.1); Sodium 136 mmol/L (137-145); Total Bilirubin 0.6 mg/dL (0.2-1.3); Total Protein 6.9 g/dL (6.3-8.2)
[2019-12-14] MEDS ORDERED: ACETAMINOPHEN TAB 325 MG TAB PO PRN (22:06)
[2019-12-14] MEDS ORDERED: METOCLOPRAMIDE 5 MG/ML 2 ML VIAL IVP PRN (22:07)
[2019-12-14] MEDS: MORPHINE SULFATE 4 MG/ML SYRINGE IVP SCH ×2 (22:17→23:09)
[2019-12-14] MEDS: metroNIDAZOLE-NS PMX 500 MG in SALINE 1 100ML.BAG IVPB STA ×2 (22:21→22:30)
[2019-12-14] MEDS: KETOROLAC 15 MG/ML 1 ML VIAL IVP SCH (22:31)
[2019-12-14] MEDS: ONDANSETRON 4 MG/2 ML VIAL IVP PRN (22:32)
[2019-12-15] MEDS: ACETAMINOPHEN IV (For NPO) 1,000 MG in EMPTY BAG 1 BAG IVPB PRN ×2 (00:18→06:02)
[2019-12-15] MEDS: MORPHINE SULFATE 4 MG/ML SYRINGE IVP PRN ×2 (01:06→04:45)
[2019-12-15] MEDS: metroNIDAZOLE-NS PMX 500 MG in SALINE 1 100ML.BAG IVPB SCH ×3 (04:45→21:00)
[2019-12-15] MEDS: KETOROLAC 15 MG/ML 1 ML VIAL IVP SCH ×3 (05:00→17:27)
[2019-12-15] MEDS ORDERED: HYDROmorphone 1 MG/ML 1 ML SYRINGE IVP STA (07:24)
[2019-12-15] MEDS ORDERED: HYDROmorphone 1 MG/ML 1 ML SYRINGE IVP PRN (07:24)
[2019-12-15] MEDS: LACTATED RINGERS 1,000 ML IV SCH ×2 (07:45→16:46)
[2019-12-15] MEDS: ONDANSETRON 4 MG/2 ML VIAL IVP PRN ×2 (08:16→20:16)
[2019-12-15] MEDS: IOPAMIDOL CONTRAST (ORAL USE) VIAL PO PRN ×2 (08:16→09:05)
--- NOTE | 2019-12-15 11:23 | CT ---
EXAMINATION TYPE: CT abdomen pelvis w con DATE OF EXAM: 12/15/2019 COMPARISON: CT abdomen pelvis 12/10/2019 HISTORY: generalized abdominal pain, nausea CT DLP: 1751.3 mGycm Automated exposure control for dose reduction was used. TECHNIQUE: Helical acquisition of images was performed from the lung bases through the pelvis. CONTRAST: Performed with Oral Contrast and with IV Contrast, patient injected with 100 mL of Isovue 300. FINDINGS: LUNG BASES: Bibasilar atelectasis. LIVER: Normal. Streak artifact of the dome somewhat limits evaluation. BILIARY SYSTEM: There is a small amount of layering inspissated bile versus biliary sludge. Gallbladd er otherwise normal with no pericholecystic inflammation. No intrahepatic or extrahepatic biliary zeyad susan dilatation. PANCREAS: Normal. SPLEEN: Normal. Splenule. ADRENALS: Normal. KIDNEYS: Normal. BOWEL: Small hiatal hernia. There is sigmoid colonic diverticulitis with mildly decreased adjacent i nflammatory stranding versus 12/10/2019, with no evidence of perforation or abscess. No evidence of bow el obstruction. Normal appendix. PERITONEUM: No free air is visualized. No drainable fluid collections. ADENOPATHY: No lymphadenopathy. PELVIS: Nondistended urinary bladder. VASCULATURE: No abdominal aortic aneurysm. MUSCULOSKELETAL: No acute osseous normality. IMPRESSION: Sigmoid colon acute diverticulitis is moderately improved versus 12/10/2019 CT comparison. There is no evidence of perforation or abscess.
--- NOTE | 2019-12-15 11:35 | P.GSHP ---
History of Present Illness H&P Date: 12/15/19 CHIEF COMPLAINT: Abdominal pain HISTORY OF PRESENT ILLNESS: This is a 49-year-old female with a known history of diverticulitis, hypertension and rheumatoid arthritis. She presented to the emergency room with complaints of abdominal pain and nausea. She was recently diagnosed with diverticulitis and had been on antibiotics at home. Her nausea and pain continued to worsen. She also started having vomiting and unable to keep down her medications. She was Admitted to the hospital for diverticulitis and is currently started on IV Flagyl. She has multiple antibiotic medication ALLERGIES. Therefore consult has been placed for infectious disease. Patient denies any fever, chills, sweats. PAST MEDICAL HISTORY: See list. PAST SURGICAL HISTORY: See list. MEDICATIONS: See list. ALLERGIES: See list. SOCIAL HISTORY: No illicit drug use. REVIEW OF SYSTEMS: CONSTITUTIONAL: Denies fever or chills. HEENT: Denies blurred vision, vision changes, or eye pain. Denies hemoptysis CARDIOVASCULAR: Denies chest pain or pressure. RESPIRATORY: No shortness of breath. GASTROINTESTINAL: See HPI for pertinent findings HEMATOLOGIC: Denies bleeding disorders. GENITOURINARY: Denies any blood in urine or increased urinary frequency. SKIN: Denies pruitis. Denies rash. PHYSICAL EXAM: VITAL SIGNS: Reviewed GENERAL: Well-developed in no acute distress. HEENT: No sclera icterus. Extraocular movements grossly intact. Moist buccal mucosa. Head is atraumatic, normocephalic. No nasal drainage. ABDOMEN: Soft. Obese. Nondistended. Tenderness with palpation to right lower quadrant. NEUROLOGIC: Alert and oriented. Cranial nerves II through XII grossly intact. LABORATORY DATA: WBC 5.8, HGB 14.6 IMAGING: Computed tomography scan abdomen and pelvis per radiologist showed sigmoid colon acute diverticulitis is moderately improved versus CAT scan comparison on 12/10/2019. There is no evidence of perforation or abscess KUB x-ray negative ASSESSMENT: 1. Acute sigmoid colon diverticulitis failed outpatient treatment. 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 Signing provider agrees with the documented findings, assessment, and plan of care. Past Medical History Past Medical History: Hypertension, Pneumonia, Rheumatoid Arthritis (RA) Additional Past Medical History / Comment(s): Diverticulitis History of Any Multi-Drug Resistant Organisms: None Reported Past Surgical History: Section, Hysterectomy, Orthopedic Surgery, Tonsillectomy Additional Past Surgical History / Comment(s): L rotator cuff repair. Adhesion surgery Past Anesthesia/Blood Transfusion Reactions: No Reported Reaction Past Psychological History: No Psychological Hx Reported Smoking Status: Former smoker Past Alcohol Use History: None Reported Past Drug Use History: None Reported - Past Family History Mother Family Medical History: Myocardial Infarction ([place]) Father Family Medical History: Cancer Additional Family Medical History / Comment(s): Lung Medications and Allergies Home Medications Medication Instructions Recorded Confirmed Type Losartan [Cozaar] 25 mg PO DAILY@1200 04/18/19 12/14/19 History metroNIDAZOLE [Flagyl] 500 mg PO TID 10 Days #30 tab 12/11/19 12/14/19 Rx Albuterol Inhaler [Ventolin Hfa 2 puff INHALATION RT-Q4H PRN 12/14/19 12/14/19 History Inhaler] Sulfamethox-Tmp 800-160Mg [Bactrim 1 tab PO Q12H 12/14/19 12/14/19 History DS 800-160 mg] Allergies Allergy/AdvReac Type Severity Reaction Status Date / Time amoxicillin Allergy Anaphylaxis Verified 12/14/19 17:43 azithromycin Allergy Rash/Hives Verified 12/14/19 17:43 [From Zithromax Z-Jhonathan] ciprofloxacin Allergy Anaphylaxis Verified 12/14/19 17:43 Penicillins Allergy Anaphylaxis Verified 12/14/19 17:43 tetracycline Allergy Anaphylaxis Verified 12/14/19 17:43 Surgical - Exam Vital Signs Temp Pulse Resp BP Pulse Ox 98.3 F 94 18 138/91 97 12/14/19 17:07 12/14/19 17:07 12/14/19 17:07 12/14/19 17:07 12/14/19 17:07 Results - Labs 12/14/19 18:00 12/14/19 18:00 Abnormal Lab Results - Last 24 Hours (Table) 12/14/19 Range/Units 18:00 Sodium 136 L (137-145) mmol/L BUN 22 H (7-17) mg/dL Diabetes panel 12/14/19 Range/Units 18:00 Sodium 136 L (137-145) mmol/L Potassium 4.5 (3.5-5.1) mmol/L Chloride 106 (98-107) mmol/L Carbon Dioxide 22 (22-30) mmol/L BUN 22 H (7-17) mg/dL Creatinine 0.79 (0.52-1.04) mg/dL Glucose 97 (74-99) mg/dL Calcium 9.6 (8.4-10.2) mg/dL AST 30 (14-36) U/L ALT 21 (4-34) U/L Alkaline Phosphatase 72 (38-126) U/L Total Protein 6.9 (6.3-8.2) g/dL Albumin 4.4 (3.5-5.0) g/dL Calcium panel 12/14/19 Range/Units 18:00 Calcium 9.6 (8.4-10.2) mg/dL Albumin 4.4 (3.5-5.0) g/dL Pituitary panel 12/14/19 Range/Units 18:00 Sodium 136 L (137-145) mmol/L Potassium 4.5 (3.5-5.1) mmol/L Chloride 106 (98-107) mmol/L Carbon Dioxide 22 (22-30) mmol/L BUN 22 H (7-17) mg/dL Creatinine 0.79 (0.52-1.04) mg/dL Glucose 97 (74-99) mg/dL Calcium 9.6 (8.4-10.2) mg/dL Adrenal panel 12/14/19 Range/Units 18:00 Sodium 136 L (137-145) mmol/L Potassium 4.5 (3.5-5.1) mmol/L Chloride 106 (98-107) mmol/L Carbon Dioxide 22 (22-30) mmol/L BUN 22 H (7-17) mg/dL Creatinine 0.79 (0.52-1.04) mg/dL Glucose 97 (74-99) mg/dL Calcium 9.6 (8.4-10.2) mg/dL Total Bilirubin 0.6 (0.2-1.3) mg/dL AST 30 (14-36) U/L ALT 21 (4-34) U/L Alkaline Phosphatase 72 (38-126) U/L Total Protein 6.9 (6.3-8.2) g/dL Albumin 4.4 (3.5-5.0) g/dL
[2019-12-15 12:29] VITALS: BMI 36.0
[2019-12-15 12:36] VITALS: RESP 16
[2019-12-15] MEDS: PANTOPRAZOLE 40 MG/10 ML VIAL IVP SCH (13:07)
[2019-12-15] MEDS ORDERED: CEFEPIME 2 GM in SODIUM CHLORIDE 0.9% 100 ML IVPB ONE (16:15)
--- NOTE | 2019-12-15 20:33 | P.CONS ---
History of Present Illness - History of Present Illness This is a pleasant 49 years old female with past medical history of hypertension and rheumatoid arthritis. Presents because of abdominal pain. Patient says that her pain in the lower abdomen mainly in the left lower site about 10/10 in severity when she came in to the hospital but now is improved with pain medication, felt like pressure. Associated with diarrhea of one day duration but now stopped and she did not have bowel movement since yesterday. She has some nausea but no vomiting. Patient felt fever or chills at home and she measured her CellCept was 102.6, currently she is afebrile. However patient came to the emergency room a few days ago with similar complaint, she was discharged on Flagyl and Bactrim with no significant improvement she called her surgeon Dr. Duffy and referred her to be admitted to the hospital She is a status post laparoscopic lysis of adhesions by Dr. Garcia on 10/31/19. Vitas looks stable, afebrile since admission. Labs showing unremarkable CBC and BMP. CT of the abdomen and pelvis With IV contrast showing sigmoid: Acute d iverticulitis moderately improved compared to 12/10/19 with no evidence of perforation or abscess She was started on cefepime and Flagyl and normal saline at 130 milliliters per hour Review of Systems Review of systems CONSTITUTIONAL: No fever, no malaise, no fatigue. HEENT: No recent visual problems or hearing problems. Denied any sore throat. CARDIOVASCULAR: No orthopnea, PND, no palpitations, no syncope. PULMONARY: No shortness of breath, no cough, no hemoptysis. GASTROINTESTINAL: No diarrhea, no vomiting,. Normoactive bowel sounds. NEUROLOGICAL: No headaches, no weakness, no numbness. HEMATOLOGICAL: Denies any bleeding or petechiae. GENITOURINARY: Denies any burning micturition, frequency, or urgency. MUSCULOSKELETAL/RHEUMATOLOGICAL: Denies any joint pain, swelling, or any muscle pain. ENDOCRINE: Denies any polyuria or polydipsia. Past Medical History Past Medical History: Hypertension, Pneumonia, Rheumatoid Arthritis (RA) Additional Past Medical History / Comment(s): Diverticulitis History of Any Multi-Drug Resistant Organisms: None Reported Past Surgical History: Section, Hysterectomy, Orthopedic Surgery, Tonsillectomy Additional Past Surgical History / Comment(s): L rotator cuff repair. Adhesion surgery Past Anesthesia/Blood Transfusion Reactions: No Reported Reaction Past Psychological History: No Psychological Hx Reported Smoking Status: Former smoker Past Alcohol Use History: None Reported Past Drug Use History: None Reported - Past Family History Mother Family Medical History: Myocardial Infarction ([place]) Father Family Medical History: Cancer Additional Family Medical History / Comment(s): Lung Medications and Allergies Home Medications Medication Instructions Recorded Confirmed Type Losartan [Cozaar] 25 mg PO DAILY@1200 04/18/19 12/14/19 History metroNIDAZOLE [Flagyl] 500 mg PO TID 10 Days #30 tab 12/11/19 12/14/19 Rx Albuterol Inhaler [Ventolin Hfa 2 puff INHALATION RT-Q4H PRN 12/14/19 12/14/19 History Inhaler] Sulfamethox-Tmp 800-160Mg [Bactrim 1 tab PO Q12H 12/14/19 12/14/19 History DS 800-160 mg] Allergies Allergy/AdvReac Type Severity Reaction Status Date / Time amoxicillin Allergy Anaphylaxis Verified 12/14/19 17:43 azithromycin Allergy Rash/Hives Verified 12/14/19 17:43 [From Zithromax Z-Jhonathan] ciprofloxacin Allergy Anaphylaxis Verified 12/14/19 17:43 Penicillins Allergy Anaphylaxis Verified 12/14/19 17:43 tetracycline Allergy Anaphylaxis Verified 12/14/19 17:43 Physical Exam Vitals: Vital Signs Temp Pulse Resp BP Pulse Ox 12/15/19 12:30 98.0 F 72 16 119/71 97 12/15/19 08:25 97.7 F 68 18 98/63 97 12/15/19 04:40 98.1 F 94 16 100/66 96 12/14/19 23:00 98.4 F 72 18 118/77 96 Intake and Output 12/15/19 12/15/19 12/15/19 06:59 14:59 22:59 Intake Total 800 Balance 800 Intake: Oral 800 Other: Voiding Method Toilet Toilet # Voids 1 2 Weight 89.3 kg GENERAL: The patient is alert and oriented x3, not in any acute distress. Well d eveloped, well nourished. HEENT: Pupils are round and equally reacting to light. EOMI. No scleral icterus. No conjunctival pallor. Normocephalic, atraumatic. No pharyngeal erythema. No thyromegaly. CARDIOVASCULAR: S1 and S2 present. No murmurs, rubs, or gallops. PULMONARY: Chest is clear to auscultation, no wheezing or crackles. -ABDOMEN: Soft, minimal left lower quadrant tenderness, nondistended, normoactive bowel sounds. No palpable organomegaly. MUSCULOSKELETAL: No joint swelling or deformity. EXTREMITIES: No cyanosis, clubbing, or pedal edema. NEUROLOGICAL: Gross neurological examination did not reveal any focal deficits. SKIN: No rashes. no petechiae. Results CBC & Chem 7: 12/14/19 18:00 12/14/19 18:00 Assessment and Plan Assessment: Acute sigmoid diverticulitis, failed outpatient therapy. No perforation or abscess Hypertension Rheumatoid arthritis Plan: This is a pleasant 49 years old female who presents with acute diverticulitis. Continue with cefepime and Flagyl. Infectious disease consulted. Continue with IV hydration, advance diet as tolerated. Labs and medication were reviewed.. Continue same treatment. Continue with symptomatic treatment. Resume home medication. Monitor lytes and vitals. DVT and GI prophylaxis. Further recommendations of the clinical course of the patient DVT prophylaxis: Subcutaneous heparin GI Prophylaxis: Ppi Thank you for consulting us
--- NOTE | 2019-12-16 01:03 | P.CONS ---
History of Present Illness - Reason for Consult Consult date: 12/15/19 Acute diverticulitis and multiple antibiotic ALLERGIES Requesting physician: Darinel Garcia - Chief Complaint Abdominal pain x few days - History of Present Illness Patient is a 49-year-old female initially presented to the hospital on 12/10/2019 for left lower abdominal pain and was mostly dull aching to sharp is some associated nausea but no vomiting did have constipation patient did have severe abdominal pelvis that was suggestive of diverticulitis patient was discharged home on oral Bactrim DS and Flagyl patient was advised to follow up with Dr. Cabrera in the outpatient setting, patient was seen in the office yesterday and with concern for possible worsening diverticulitis patient was sent to the ER for further management and IV antibiotic therapy patient complaining of pain mostly the left lower abdominal area described to be sharp, 7-8 out of 10 and no radiation the necessity nausea and did have some vomiting no diarrhea or constipation did have some chills patient on arrival via did have a CT of abdominal pelvis didn't show improvement in her diverticulitis and no evidence of any abscess, the patient was afebrile and did have a normal white count she was started on IV Flagyl because of her multiple antibiotic ALLERGIES infectious disease was consulted for management of antibiotic therapy Review of Systems Positive point has been mentioned in the HPI rest of the systems are negative Past Medical History Past Medical History: Hypertension, Pneumonia, Rheumatoid Arthritis (RA) Additional Past Medical History / Comment(s): Diverticulitis History of Any Multi-Drug Resistant Organisms: None Reported Past Surgical History: Section, Hysterectomy, Orthopedic Surgery, Tonsillectomy Additional Past Surgical History / Comment(s): L rotator cuff repair. Adhesion surgery Past Anesthesia/Blood Transfusion Reactions: No Reported Reaction Past Psychological History: No Psychological Hx Reported Smoking Status: Former smoker Past Alcohol Use History: None Reported Past Drug Use History: None Reported - Past Family History Mother Family Medical History: Myocardial Infarction ([place]) Father Family Medical History: Cancer Additional Family Medical History / Comment(s): Lung Medications and Allergies Home Medications Medication Instructions Recorded Confirmed Type Losartan [Cozaar] 25 mg PO DAILY@1200 04/18/19 12/14/19 History metroNIDAZOLE [Flagyl] 500 mg PO TID 10 Days #30 tab 12/11/19 12/14/19 Rx Albuterol Inhaler [Ventolin Hfa 2 puff INHALATION RT-Q4H PRN 12/14/19 12/14/19 History Inhaler] Sulfamethox-Tmp 800-160Mg [Bactrim 1 tab PO Q12H 12/14/19 12/14/19 History DS 800-160 mg] Allergies Allergy/AdvReac Type Severity Reaction Status Date / Time amoxicillin Allergy Anaphylaxis Verified 12/14/19 17:43 azithromycin Allergy Rash/Hives Verified 12/14/19 17:43 [From Zithromax Z-Jhonathan] ciprofloxacin Allergy Anaphylaxis Verified 12/14/19 17:43 Penicillins Allergy Anaphylaxis Verified 12/14/19 17:43 tetracycline Allergy Anaphylaxis Verified 12/14/19 17:43 Physical Exam Vitals: Vital Signs Temp Pulse Pulse Resp BP BP Pulse Ox 12/15/19 12:30 98.0 F 72 16 119/71 97 12/15/19 08:25 97.7 F 68 18 98/63 97 12/15/19 04:40 98.1 F 94 16 100/66 96 12/14/19 23:00 98.4 F 72 18 118/77 96 12/14/19 18:55 97.8 F 75 20 121/83 96 12/14/19 18:31 99.1 F 89 20 135/78 99 12/14/19 17:07 98.3 F 94 18 138/91 97 Intake and Output 12/15/19 12/15/19 12/15/19 06:59 14:59 22:59 Intake Total 800 Balance 800 Intake: Oral 800 Other: Voiding Method Toilet Toilet # Voids 1 2 Weight 89.3 kg GENERAL DESCRIPTION: Middle-aged female lying in bed, no distress. No tachypnea or accessory muscle of respiration use. HEENT: Shows Pallor , no scleral icterus. Oral mucous membrane is dry. No pharyngeal erythema or thrush NECK: Trachea central, no thyromegaly. LUNGS: Unlabored breathing. Clear to auscultation anteriorly. No wheeze or crackle. HEART: S1, S2, regular rate and rhythm. No loud murmur ABDOMEN: Soft, mildly tender left lower quadrant tenderness , no guarding or rigidity, no organomegaly EXTREMITIES: No edema of feet. SKIN: No rash, no masses palpable. NEUROLOGICAL: The patient is awake, alert, oriented x3, mood and affect normal. Results CBC & Chem 7: 12/14/19 18:00 12/14/19 18:00 Labs: Abnormal Lab Results - Last 24 Hours (Table) 12/14/19 Range/Units 18:00 Sodium 136 L (137-145) mmol/L BUN 22 H (7-17) mg/dL Assessment and Plan Assessment: 1- patient with acute sigmoid diverticulitis in this patient presented initially to the ER on 12/10/2019. The patient was diagnosed with diverticulitis and was treated with oral Bactrim DS and Flagyl which apparently was unable to keep it down now admitted hospital with persistent nonhealing of her diverticulitis and failing outpatient oral Bactrim DS therapy, CT this admission did not show any abscess or perforation 2- Patient with multiple antibiotic ALLERGIES that would limit the number of antibiotic safe to use (1) Allergy to multiple antibiotics Current Visit: Yes Status: Acute Code(s): Z88.1 - ALLERGY STATUS TO OTHER ANTIBIOTIC AGENTS STATUS SNOMED Code(s): 568624599 (2) Diverticulitis Current Visit: Yes Status: Acute Code(s): K57.92 - DVTRCLI OF INTEST, PART UNSP, W/O PERF OR ABSCESS W/O BLEED SNOMED Code(s): 811702643 (3) Failure of outpatient treatment Current Visit: Yes Status: Acute Code(s): Z78.9 - OTHER SPECIFIED HEALTH STATUS SNOMED Code(s): 004005509 Plan: 1- we will start patient cefepime 2 g every 12 hours and continue with the Flagyl 2- bowel rest and gentle IV fluids We will follow on clinical condition and cultures to further adjust medication if needed Thank you for this consultation will follow this patient with you Time with Patient: Greater than 30
[2019-12-16] MEDS: CEFEPIME 2 GM in SODIUM CHLORIDE 0.9% 100 ML IVPB SCH ×2 (02:24→11:24)
[2019-12-16] MEDS: LACTATED RINGERS 1,000 ML IV SCH ×3 (02:59→03:02)
[2019-12-16] MEDS: HEPARIN SODIUM,PORCINE 5,000 UNIT/ML 1 ML VIAL SQ SCH ×2 (03:00→08:13)
[2019-12-16] MEDS: KETOROLAC 15 MG/ML 1 ML VIAL IVP SCH ×4 (03:01→13:54)
[2019-12-16] MEDS: metroNIDAZOLE-NS PMX 500 MG in SALINE 1 100ML.BAG IVPB SCH ×3 (04:30→13:53)
[2019-12-16 08:05] LABS: Basophils % (A) 1 %; Eosinophils # (A) 0.1 k/uL (0-0.7); Eosinophils % (A) 1 %; HCT 40.3 % (34.0-46.0); HGB 12.9 gm/dL (11.4-16.0); Lymphocytes # (A) 1.6 k/uL (1.0-4.8); Lymphocytes % (A) 30 %; MCH 27.5 pg (25.0-35.0); MCHC 31.9 g/dL (31.0-37.0); MCV 86.2 fL (80.0-100.0); Mean Platelet Volume 7.1; Monocytes # (A) 0.2 k/uL (0-1.0); Monocytes % (A) 5 %; Neutrophils # (A) 3.4 k/uL (1.3-7.7); Neutrophils % (A) 62 %; Platelet Count 278 k/uL (150-450); RBC 4.67 m/uL (3.80-5.40); RDW 12.8 % (11.5-15.5); WBC 5.4 k/uL (3.8-10.6)
[2019-12-16 08:07] LABS: African American GFR (CKD) >90 (>60 ml/min/1.73 sqM); Anion Gap 5 mmol/L; Blood Urea Nitrogen 8 mg/dL (7-17); Calcium 8.8 mg/dL (8.4-10.2); Carbon Dioxide 26 mmol/L (22-30); Chloride 108 mmol/L (98-107); Glucose 86 mg/dL (74-99); Non-African American GFR(CKD) >90 (>60 ml/min/1.73 sqM); Sodium 139 mmol/L (137-145)
[2019-12-16 08:10] VITALS: BP 144/95; PULSE 74; TEMP 97.7
[2019-12-16] MEDS: PANTOPRAZOLE 40 MG/10 ML VIAL IVP SCH (08:21)
--- NOTE | 2019-12-16 10:56 | P.PN ---
Progress Note - Text Progress Note Date: 12/16/19 Patient feels better today. She states her pain is improved. On exam vital signs are stable. Abdomen soft. There patient discharged home today. She'll follow-up in the office next week.
--- NOTE | 2019-12-16 10:57 | P.DS ---
Providers Date of admission: 12/14/19 17:32 Expected date of discharge: 12/16/19 Attending physician: Darinel Garcia Consults: 12/15/19 09:33 Consult Physician Routine Consulting Provider: Carlene Yarbrough Consult Reason/Comments: diverticulitis and multiple antibiotic allergies Do you want consulting provider notified?: Yes 12/15/19 12:45 Consult Physician Routine Consulting Provider: Melecio Simmons Consult Reason/Comments: medical management Do you want consulting provider notified?: Yes Primary care physician: Tyler Andrade Hospital Course: This is a 49-year-old female who was admitted to hospital for treatment of diverticulitis. Patient did well. Please see hospital chart for details. Patient Condition at Discharge: Good Plan - Discharge Summary New Discharge Prescriptions: No Action Losartan [Cozaar] 25 mg PO DAILY@1200 metroNIDAZOLE [Flagyl] 500 mg PO TID 10 Days #30 tab Sulfamethox-Tmp 800-160Mg [Bactrim DS 800-160 mg] 1 tab PO Q12H Albuterol Inhaler [Ventolin Hfa Inhaler] 2 puff INHALATION RT-Q4H PRN PRN Reason: Shortness Of Breath Discharge Medication List Losartan [Cozaar] 25 mg PO DAILY@1200 04/18/19 [History] metroNIDAZOLE [Flagyl] 500 mg PO TID 10 Days #30 tab 12/11/19 [Rx] Albuterol Inhaler [Ventolin Hfa Inhaler] 2 puff INHALATION RT-Q4H PRN 12/14/19 [History] Sulfamethox-Tmp 800-160Mg [Bactrim DS 800-160 mg] 1 tab PO Q12H 12/14/19 [History] Follow up Appointment(s)/Referral(s): Tyler Andrade MD [Primary Care Provider] - 1-2 days Darinel Garcia MD [STAFF PHYSICIAN] - 1 Week
--- NOTE | 2019-12-16 11:34 | P.PN ---
Subjective This is a pleasant 49 years old female with past medical history of hypertension and rheumatoid arthritis. Presents because of abdominal pain. Patient says that her pain in the lower abdomen mainly in the left lower site about 10/10 in severity when she came in to the hospital but now is improved with pain medication, felt like pressure. Associated with diarrhea of one day duration but now stopped and she did not have bowel movement since yesterday. She has some nausea but no vomiting. Patient felt fever or chills at home and she measured her CellCept was 102.6, currently she is afebrile. However patient came to the emergency room a few days ago with similar complaint, she was discharged on Flagyl and Bactrim with no significant improvement she called her surgeon Dr. Duffy and referred her to be admitted to the hospital She is a status post laparoscopic lysis of adhesions by Dr. Garcia on 10/31/19. Vitas looks stable, afebrile since admission. Labs showing unremarkable CBC and BMP. CT of the abdomen and pelvis With IV contrast showing sigmoid: Acute diverticulitis moderately improved compared to 12/10/19 with no evidence of perforation or abscess She was started on cefepime and Flagyl and normal saline at 130 milliliters per hour 12/16/2019 Patient today is doing well, her pain is resolved consults currently 0/10, no nausea vomiting and she is tolerating diet well. She has normal bowel movement but she is passing gases On exam she has no abdominal tenderness and no acute tenderness which is resolved. No fever and CBC and BMP are normal. Looks like patient is going to be discharged today by surgery team. Resume antibiotics upon discharge as per ID team recommendation Objective - Vital Signs Vital signs: Vital Signs Temp 97.7 F 12/16/19 08:10 Pulse 74 12/16/19 08:10 Resp 16 12/16/19 08:10 BP 144/95 12/16/19 08:10 Pulse Ox 97 12/16/19 08:10 Intake & Output 12/15/19 12/16/19 12/16/19 18:59 06:59 18:59 Intake Total 800 Balance 800 Weight 89.3 kg Intake: Oral 800 Other: Voiding Method Toilet Toilet Toilet # Voids 2 1 - Exam GENERAL: The patient is alert and oriented x3, not in any acute distress. Well developed, well nourished. HEENT: Pupils are round and equally reacting to light. EOMI. No scleral icterus. No conjunctival pallor. Normocephalic, atraumatic. No pharyngeal erythema. No thyromegaly. CARDIOVASCULAR: S1 and S2 present. No murmurs, rubs, or gallops. PULMONARY: Chest is clear to auscultation, no wheezing or crackles. ABDOMEN: Soft, nontender, nondistended, normoactive bowel sounds. No palpable organomegaly. MUSCULOSKELETAL: No joint swelling or deformity. EXTREMITIES: No cyanosis, clubbing, or pedal edema. NEUROLOGICAL: Gross neurological examination did not reveal any focal deficits. SKIN: No rashes. no petechiae. - Labs CBC & Chem 7: 12/16/19 07:14 12/16/19 07:14 Labs: Abnormal Lab Results - Last 24 Hours (Table) 12/16/19 Range/Units 07:14 Chloride 108 H (98-107) mmol/L Microbiology - Last 24 Hours (Table) 12/14/19 18:00 Blood Culture - Preliminary Blood No Growth after 24 hours Assessment and Plan Assessment: Acute sigmoid diverticulitis, failed outpatient therapy. No perforation or abscess Hypertension Rheumatoid arthritis Plan: This is a pleasant 49 years old female who presents with acute diverticulitis. Continue with cefepime and Flagyl. Infectious disease consulted. Patient symptomatically improved significantly and she is tolerating diet, surgery team are planning to discharge the patient today. Resume antibiotics upon discharge as per ID team recommendation. Labs and medication were reviewed.. Continue same treatment. Continue with symptomatic treatment. Resume home medication. Monitor lytes and vitals. DVT and GI prophylaxis. Further recommendations of the clinical course of the patient DVT prophylaxis: Subcutaneous heparin GI Prophylaxis: Ppi We recommend patient follow up with her PCP in one week as well as with Dr. Duffy in 1 week as well, patient was instructed with the same Thank you for consulting us
--- NOTE | 2019-12-16 16:21 | PN ---
PROGRESS NOTE DATE OF SERVICE: . REASON FOR FOLLOW UP: Acute diverticulitis. INTERVAL HISTORY: Patient is currently afebrile. The patient is breathing comfortably. The patient's abdominal pain has decreased. No chest pain, shortness of breath or cough. No nausea, vomiting or diarrhea. PHYSICAL EXAMINATION: Blood pressure is 144/95 with a pulse of 74, temperature 97.7. She is 97% on room air. General description is a middle-aged female up in the chair in no distress. Respiratory system: Unlabored breathing, clear to auscultation anteriorly. Heart S1, S2. Regular rate and rhythm. Abdomen soft, no tenderness. LABS: Hemoglobin is 12.1, white count of 5.4, BUN of 8, creatinine 0.63. Blood culture has been negative. DIAGNOSTIC IMPRESSION AND PLAN: Patient has acute diverticulitis failing outpatient Bactrim therapy. She responded to cefepime and Flagyl. Finish therapy with oral Ceftin and Flagyl. Prescription sent to the pharmacy and close outpatient followup. Questions and concerns were answered. DENEENL / SORINN: [id number] /
== END 2019-12-16 15:40 | disposition home or self-care (01) | DRG 392 ==
LOC: EC 16:51 → 6PED 17:32 → 4SSUR 12-15 16:25
PROVIDERS: ADMIT Surgery; ATTEND Surgery
DX: K57.32 Diverticulitis of large intestine without perforation or abscess without bleeding (principal); I10 Essential (primary) hypertension; M06.9 Rheumatoid arthritis, unspecified; Z79.899 Other long term (current) drug therapy; Z82.49 Family history of ischemic heart disease and other diseases of the circulatory system; Z87.891 Personal history of nicotine dependence; Z88.1 Allergy status to other antibiotic agents; Z88.0 Allergy status to penicillin; Z90.710 Acquired absence of both cervix and uterus; Z90.89 Acquired absence of other organs; Z87.01 Personal history of pneumonia (recurrent); Z80.1 Family history of malignant neoplasm of trachea, bronchus and lung; Z98.890 Other specified postprocedural states
CPT/HCPCS: 74018; 74177; 80048; 80053; 82150; 83605; 83690; 85025; 87040; 99285

== ENCOUNTER 2020-01-10 09:00 | Day surgery (SDC) | payer MEDICARE ==
[2020-01-09 08:48] VITALS: BMI 34.2
[~2020-01-10 09:00] MED LIST changes: -ACETAMINOPHEN TAB 500 MG TAB ONE; -BUPIVACAIN-EPI 0.25%-1:200,000 30 ML VIAL SQ ONE; +CLINDAMYCIN 900 MG in DEXTROSE 5% IN WATER 50 ML IVPB ONE; -DEXAMETHASONE SOD PHOSPHATE 10 MG/ML 1 ML VIAL IV ONE; +FAMOTIDINE 20 MG/2 ML VIAL IV PRN; +GENTAMICIN 320 MG in SODIUM CHLORIDE 0.9% 100 ML IVPB ONE; -GLYCOPYRROLATE 0.2 MG/ML 2 ML VIAL ONE; -HEPARIN SODIUM,PORCINE 5,000 UNIT/ML 1 ML VIAL ONE; -HYDROcodone/APAP 5-325MG 1 EACH TAB ONE; -HYDROcodone/APAP 5-325MG 1 EACH TAB PO ONE; -HYDROmorphone (PF) 1 MG/ML ONE; -KETOROLAC 30 MG/ML 1 ML VIAL ONE; -LACTATED RINGERS 1,000 ML IV ONE; -LACTATED RINGERS 1,000 ML IV SCH; -LIDOCAINE 1% (10MG/ML) FOR IV START INTRADERMA ONE; +LIDOCAINE 1% (10MG/ML) FOR IV START INTRADERMA PRN; -LIDOCAINE 1% INJ 10MG/ML (20 ML MDV) ONE; -MIDAZOLAM 2 MG/2 ML VIAL IV ONE; -MIDAZOLAM 2 MG/2 ML VIAL IV PRN; -MIDAZOLAM 2 MG/2 ML VIAL ONE; -NEOSTIGMINE 1 MG/ML 10 ML VIAL ONE; -ONDANSETRON 4 MG/2 ML VIAL IVP ONE; -ONDANSETRON 4 MG/2 ML VIAL ONE; -PROPOFOL 10 MG/ML 20 ML VIAL IV ONE; -Pre Op ABX Message 1 EACH MISC MISCELLANE ONE; -ROCURONIUM BROMIDE 10 MG/ML 5 ML VIAL IV ONE; -SCOPOLAMINE 1.5MG/72HR PATCH TRANSDERM ONE; -SUCCINYLCHOLINE CHLORIDE 100 MG/5 ML SYR IV ONE; -fentaNYL (PF) 50 MCG/ML 2 ML AMP ONE
--- NOTE | 2020-01-10 09:31 | P.GSHP ---
History of Present Illness H&P Date: 01/10/20 Chief Complaint: Right upper quadrant pain This a 49-year-old female with complaints of right upper quadrant pain. Her recent ultrasound shows evidence of cholelithiasis. She she feels today for laparoscopic ostectomy Past Medical History Past Medical History: Hypertension, Rheumatoid Arthritis (RA) Additional Past Medical History / Comment(s): Diverticulitis. GALL BLADDER DISORDER History of Any Multi-Drug Resistant Organisms: None Reported Past Surgical History: Section, Hysterectomy, Orthopedic Surgery, Tonsillectomy Additional Past Surgical History / Comment(s): L rotator cuff repair. Adhesion surgery Past Anesthesia/Blood Transfusion Reactions: No Reported Reaction Smoking Status: Former smoker - Past Family History Mother Family Medical History: Myocardial Infarction ([place]) Father Family Medical History: Cancer Additional Family Medical History / Comment(s): Lung Medications and Allergies Home Medications Medication Instructions Recorded Confirmed Type Losartan [Cozaar] 25 mg PO DAILY@1200 04/18/19 01/10/20 History Allergies Allergy/AdvReac Type Severity Reaction Status Date / Time amoxicillin Allergy Anaphylaxis Verified 01/09/20 08:41 azithromycin Allergy Rash/Hives Verified 01/09/20 08:41 [From Zithromax Z-Jhonathan] ciprofloxacin Allergy Anaphylaxis Verified 01/09/20 08:41 Penicillins Allergy Anaphylaxis Verified 01/09/20 08:41 tetracycline Allergy Anaphylaxis Verified 01/09/20 08:41 Surgical - Exam - General well developed, well nourished, no distress - Eyes PERRL - ENT normal pinna - Neck no masses - Respiratory normal expansion - Cardiovascular Rhythm: regular - Abdomen Abdomen: soft, non tender Assessment and Plan Assessment: Right quadrant pain Lithiasis We'll perform laparoscopic cholecystectomy
[2020-01-10] MEDS: LACTATED RINGERS 1,000 ML IV SCH ×3 (09:40→14:10)
[2020-01-10] MEDS ORDERED: ONDANSETRON 4 MG/2 ML VIAL ONE (09:43)
[2020-01-10] MEDS ORDERED: DEXAMETHASONE SOD PHOSPHATE 10 MG/ML 1 ML VIAL IV ONE (09:51)
[2020-01-10] MEDS: ONDANSETRON 4 MG/2 ML VIAL IVP PRN ×2 (09:51→11:37)
[2020-01-10] MEDS ORDERED: SCOPOLAMINE 1.5MG/72HR PATCH TRANSDERM ONE (09:54)
[2020-01-10] MEDS ORDERED: GLYCOPYRROLATE 0.2 MG/ML 2 ML VIAL ONE (10:33)
[2020-01-10] MEDS ORDERED: fentaNYL (PF) 50 MCG/ML 2 ML AMP ONE (10:33)
[2020-01-10] MEDS ORDERED: NEOSTIGMINE 1 MG/ML 10 ML VIAL ONE (10:33)
[2020-01-10] MEDS ORDERED: ROCURONIUM BROMIDE 10 MG/ML 5 ML VIAL IV ONE (10:33)
[2020-01-10] MEDS ORDERED: PROPOFOL 10 MG/ML 20 ML VIAL IV ONE (10:33)
[2020-01-10] MEDS ORDERED: ePHEDrine SULFATE/0.9% NACL/PF 50 MG/5 ML SYRINGE IV ONE (10:33)
[2020-01-10] MEDS ORDERED: LIDOCAINE 1% INJ 10MG/ML (20 ML MDV) ONE (10:33)
[2020-01-10] MEDS ORDERED: MIDAZOLAM 2 MG/2 ML VIAL ONE (10:33)
[2020-01-10] MEDS ORDERED: LIDOCAINE 1%-EPI 1:100,000 20 ML VIAL SQ ONE (10:55)
[2020-01-10 11:23] VITALS: TEMP 97
--- NOTE | 2020-01-10 11:24 | P.OP ---
Date of Procedure: 01/10/20 Preoperative Diagnosis: Cholelithiasis Postoperative Diagnosis: Cholelithiasis Procedure(s) Performed: Laparoscopic cholecystectomy Anesthesia: DANIEL Surgeon: Darinel Garcia Estimated Blood Loss (ml): 5 Pathology: other (Gallbladder) Condition: stable Disposition: PACU Description of Procedure: The patient was placed on the operating table. The patient received a general endotracheal tube anesthesia. The patients abdomen was prepped and draped in the usual sterile fashion. Through an infraumbilical stab incision, the fascia of the anterior abdominal wall was grasped with a pair of Kochers and then the Veress needle was placed in the peritoneal cavity. Position of the Veress needle was confirmed with positive drop test. The abdomen was then insufflated. After adequate insufflation, the 10 mm trocar was placed in the peritoneal cavity. Following this the laparoscope was placed in the peritoneal cavity. The patient was placed in the head-up, right side up position and then a 5 mm trocar was placed in the right lateral and right subcostal position under direct visualization. A 8 mm trocar was placed in the epigastric position. The gallbladder was grasped in the fundus and infundibulum. Traction on the gallbladder was placed in the lateral and the cephalad positions. The triangle of Calot was visualized.. The cystic duct was bluntly dissected until the union of the cystic duct and common bile duct was seen. A critical view of safety was achieved. The cystic duct was then divided and sealed with the Harmonic scissors. A PDS Endoloop was then placed throughout the cystic duct stump. The cystic artery divided and sealed with the Harmonic scissors. The gallbladder was then removed from the liver bed using Harmonic scissors. The gallbladder was then extracted through the epigastric port site. Operative field was checked for any bleeding spots and Harmonic scissors was used to coagulate the liver bed. The abdomen was irrigated. The trocars were removed. The skin was closed using interrupted 3-0 Vicryl suture. Dermabond dressing were applied. The patient tolerated the procedure well.
[2020-01-10] MEDS ORDERED: PROMETHAZINE INJ 6.25 MG in SODIUM CHLORIDE 0.9% 50 ML IVPB PRN (11:46)
[2020-01-10] MEDS ORDERED: diphenhydrAMINE 50 MG/ML 1 ML VIAL IVP ONE (11:51)
[2020-01-10] MEDS ORDERED: PROMETHAZINE INJ 25 MG/ML 1 ML VIAL IVPB ONE (12:05)
[2020-01-10 13:15] VITALS: BP 116/76
[2020-01-10 14:14] VITALS: PULSE 72; RESP 18
== END 2020-01-10 14:25 | disposition home or self-care (01) ==
LOC: OR 09:00
PROVIDERS: ATTEND Surgery
DX: K81.1 Chronic cholecystitis (principal); I10 Essential (primary) hypertension; M06.9 Rheumatoid arthritis, unspecified; K57.90 Diverticulosis of intestine, part unspecified, without perforation or abscess without bleeding; E66.9 Obesity, unspecified; Z68.36 Body mass index [BMI] 36.0-36.9, adult; Z99.89 Dependence on other enabling machines and devices; Z90.710 Acquired absence of both cervix and uterus; Z98.890 Other specified postprocedural states; Z90.89 Acquired absence of other organs; Z87.39 Personal history of other diseases of the musculoskeletal system and connective tissue; Z87.891 Personal history of nicotine dependence; Z88.0 Allergy status to penicillin; Z88.1 Allergy status to other antibiotic agents; Z91.89 Other specified personal risk factors, not elsewhere classified; Z82.49 Family history of ischemic heart disease and other diseases of the circulatory system; Z80.1 Family history of malignant neoplasm of trachea, bronchus and lung
CPT/HCPCS: 88304; 47562; J2250; J1200; J1644; J1100; J2550; J2710; J2405; J2001; J3010; J1580; J2704; J1170

== ENCOUNTER 2020-02-10 15:31 | Emergency (ER) | payer MEDICARE, OTHER ==
[2020-02-10] MEDS ORDERED: SODIUM CHLORIDE 0.9% 1,000 ML IV STA (16:10)
[2020-02-10 16:39] LABS: Appearance,Urine Cloudy (Clear); Bacteria,Urine Rare /hpf; Bilirubin,Urine Negative (Negative); Blood,Urine Negative (Negative); Color,Urine Yellow; Glucose,Urine (UA) Negative (Negative); Ketones,Urine Negative (Negative); Leukocyte Esterase,Urine Negative (Negative); Mucus,Urine Few /hpf; Nitrite,Urine Negative (Negative); PH, Urine 5.5 (5.0-8.0); Protein,Urine 1+ (Negative); Specific Gravity,Urine 1.029 (1.001-1.035); Squamous Epithelial Cell,Urine 4 /hpf (0-4); WBC,Urine 1 /hpf (0-5)
[2020-02-10 16:44] LABS: Basophils % (A) 0 %; Eosinophils % (A) 1 %; HCT 44.1 % (34.0-46.0); HGB 14.7 gm/dL (11.4-16.0); Lymphocytes # (A) 1.1 k/uL (1.0-4.8); Lymphocytes % (A) 30 %; MCHC 33.4 g/dL (31.0-37.0); MCV 83.8 fL (80.0-100.0); Monocytes # (A) 0.3 k/uL (0-1.0); Monocytes % (A) 9 %; Neutrophils # (A) 2.2 k/uL (1.3-7.7); Neutrophils % (A) 59 %; Platelet Count 181 k/uL (150-450); RBC 5.26 m/uL (3.80-5.40); RDW 13.2 % (11.5-15.5); WBC 3.7 k/uL (3.8-10.6)
[2020-02-10] MEDS ORDERED: ONDANSETRON 4 MG/2 ML VIAL IVP STA (16:52)
[2020-02-10] MEDS ORDERED: IBUPROFEN 600 MG TAB PO STA (16:52)
[2020-02-10 16:57] LABS: INR 0.9 (<1.2); Partial Thromboplastin Time 23.8 sec (22.0-30.0); Prothrombin Time 9.4 sec (9.0-12.0)
[2020-02-10 16:58] LABS: ALT 45 U/L (4-34); AST 53 U/L (14-36); African American GFR (CKD) >90 (>60 ml/min/1.73 sqM); Albumin 3.9 g/dL (3.5-5.0); Alkaline Phosphatase 68 U/L (38-126); Anion Gap 9 mmol/L; Blood Urea Nitrogen 16 mg/dL (7-17); Calcium 8.5 mg/dL (8.4-10.2); Carbon Dioxide 22 mmol/L (22-30); Chloride 105 mmol/L (98-107); Glucose 125 mg/dL (74-99); Non-African American GFR(CKD) >90 (>60 ml/min/1.73 sqM); Potassium 3.9 mmol/L (3.5-5.1); Sodium 136 mmol/L (137-145); Total Bilirubin 0.6 mg/dL (0.2-1.3); Total Protein 6.4 g/dL (6.3-8.2)
[2020-02-10 18:09] VITALS: BP 114/70; PULSE 83; RESP 16; TEMP 98.3
--- NOTE | 2020-02-10 18:13 | CT ---
EXAMINATION TYPE: CT abdomen pelvis w con DATE OF EXAM: 02/10/2020 COMPARISON: 12/15/2019 HISTORY: Left lower quadrant pain, history of diverticulitis. CT DLP: 1538.1 mGycm Automated exposure control for dose reduction was used. CONTRAST: Performed with IV Contrast, patient injected with 100 mL of Isovue 300. There is some patchy atelectasis at the lung bases. Heart size is normal. There is no pericardial eff usion. Liver shows no focal defect. Spleen is intact. There is no pancreatic mass. Stomach is intact. There is no adrenal mass. Kidneys show satisfactory contrast opacification. There is no hydronephrosi s. There is no retroperitoneal adenopathy. Bladder distends smoothly. There is no inguinal hernia. Th ere are a few sigmoid diverticula. I see no sign of diverticulitis. Lumbar vertebra have normal alignment. There is no compression fracture. Bony pelvis is intact. Hip j oints are intact. There is no evidence of pelvic mass. Uterus is slightly retroverted. There is no mesenteric edema. There is no ascites or free air. There is no bowel obstruction. Appendi x is inferior and appears normal. IMPRESSION: Sigmoid diverticulosis. Inflammatory changes posterior to the sigmoid colon are essentially cleared c ompared to old exam. No evidence of an abscess.
[2020-02-10] MEDS ORDERED: CEFEPIME 1 GM in SODIUM CHLORIDE 0.9% 50 ML IVPB STA (18:46)
[2020-02-10] MEDS ORDERED: metroNIDAZOLE 500 MG TAB PO STA (18:47)
--- NOTE | 2020-02-10 18:57 | ED ---
Abdominal Pain HPI - General Chief Complaint: Abdominal Pain Stated Complaint: abd pain Source: patient Mode of arrival: ambulatory Limitations: no limitations - History of Present Illness Initial Comments: She is a 49-year-old female presents emergency room with reported fever and left lower quadrant pain. She does report a history of diverticulitis. States that she's been previously hospitalized for her diverticulitis that she does have multiple drug ALLERGIES. The patient has had constant pain in the left lower quadrant since her hospitalization in January. States that her pain got mildly worse over the past week. She also started having a fever today and that prompted her to come into the emergency room for evaluation. She admits to some constipation. Denies any black or bloody stools. No changes in her urination. Denies any back or flank pain. She did not take any medications for her fever. Last antibiotic dosing was in January. Reports that she is most to have a colonoscopy on the . She denies a cough or hemoptysis. No headaches or visual changes. No other alleviating, precipitating modifying factors - Related Data Home Medications Medication Instructions Recorded Confirmed Losartan [Cozaar] 25 mg PO DAILY@1200 04/18/19 01/10/20 Previous Rx's Medication Instructions Recorded Cefuroxime Axetil [Ceftin] 500 mg PO BID 1 Days #20 tab 02/10/20 metroNIDAZOLE [Flagyl] 500 mg PO TID #30 tab 02/10/20 Allergies Allergy/AdvReac Type Severity Reaction Status Date / Time amoxicillin Allergy Anaphylaxis Verified 02/10/20 15:57 azithromycin Allergy Rash/Hives Verified 02/10/20 15:57 [From Zithromax Z-Jhonathan] ciprofloxacin Allergy Anaphylaxis Verified 02/10/20 15:57 Penicillins Allergy Anaphylaxis Verified 02/10/20 15:57 tetracycline Allergy Anaphylaxis Verified 02/10/20 15:57 Review of Systems ROS Statement: Those systems with pertinent positive or pertinent negative responses have been documented in the HPI. ROS Other: All systems not noted in ROS Statement are negative. Past Medical History Past Medical History: Hypertension, Rheumatoid Arthritis (RA) Additional Past Medical History / Comment(s): Diverticulitis History of Any Multi-Drug Resistant Organisms: None Reported Past Surgical History: Section, Cholecystectomy, Hysterectomy, Orthopedic Surgery, Tonsillectomy Additional Past Surgical History / Comment(s): L rotator cuff repair. Adhesion surgery Past Anesthesia/Blood Transfusion Reactions: No Reported Reaction Past Psychological History: No Psychological Hx Reported Smoking Status: Former smoker Past Alcohol Use History: None Reported Past Drug Use History: None Reported - Past Family History Mother Family Medical History: Myocardial Infarction ([place]) Father Family Medical History: Cancer Additional Family Medical History / Comment(s): Lung General Exam Limitations: no limitations Course Vital Signs 02/10/20 02/10/20 15:54 18:07 Temperature 101.5 F H 98.3 F Pulse Rate 116 H 83 Respiratory 18 16 Rate Blood Pressure 120/81 114/70 O2 Sat by Pulse 97 100 Oximetry Medical Decision Making - Medical Decision Making Upon arrival the patient is placed in room 24. A thorough history and physical exam was performed. Peripheral IV is established. The patient was given a liter bolus of normal saline and 600 mg of Motrin for her fever. Patient is having some nausea and therefore she was given 4 mg of Zofran. There are traces were conducted and the patient went for CT of her abdomen and pelvis. White count is 3.7. Urinalysis is positive for rare bacteria. CT of the patient's abdomen and pelvis was performed which demonstrates diverticulosis without signs of diverticulitis. I did discuss results the patient. Because she is having pain and fevers I did recommend treatment as if she does have acute diverticulitis. I did give the patient the option to go home as her laboratory studies are normal. I recommend that she take Motrin Tylenol every 4 hours al ternating for fever control. Patient will be placed on Ceftin and Flagyl as this is what she was sent home previously on by Dr. Conway. She is to follow up with Dr. Zavala next week. Return to the emergency department should she not have any improvement in her symptoms or if she has any worsening symptoms. Patient did agree to this. She was discharged home in stable condition. She was given a dose of cefepime in the emergency department prior to discharge - Lab Data Result diagrams: 02/10/20 16:17 02/10/20 16:17 Lab Results 02/10/20 02/10/20 02/10/20 Range/Units 16:17 16:17 16:17 WBC 3.7 L (3.8-10.6) k/uL RBC 5.26 (3.80-5.40) m/uL Hgb 14.7 (11.4-16.0) gm/dL Hct 44.1 (34.0-46.0) % MCV 83.8 (80.0-100.0) fL MCH 28.0 (25.0-35.0) pg MCHC 33.4 (31.0-37.0) g/dL RDW 13.2 (11.5-15.5) % Plt Count 181 (150-450) k/uL Neutrophils % 59 % Lymphocytes % 30 % Monocytes % 9 % Eosinophils % 1 % Basophils % 0 % Neutrophils # 2.2 (1.3-7.7) k/uL Lymphocytes # 1.1 (1.0-4.8) k/uL Monocytes # 0.3 (0-1.0) k/uL Eosinophils # 0.0 (0-0.7) k/uL Basophils # 0.0 (0-0.2) k/uL Manual Slide Review Performed RBC Morphology Normal PT 9.4 (9.0-12.0) sec INR 0.9 (<1.2) APTT 23.8 (22.0-30.0) sec Sodium (137-145) mmol/L Potassium (3.5-5.1) mmol/L Chloride (98-107) mmol/L Carbon Dioxide (22-30) mmol/L Anion Gap mmol/L BUN (7-17) mg/dL Creatinine (0.52-1.04) mg/dL Est GFR (CKD-EPI)AfAm (>60 ml/min/1.73 sqM) Est GFR (CKD-EPI)NonAf (>60 ml/min/1.73 sqM) Glucose (74-99) mg/dL Plasma Lactic Acid Live (0.7-2.0) mmol/L Calcium (8.4-10.2) mg/dL Total Bilirubin (0.2-1.3) mg/dL AST (14-36) U/L ALT (4-34) U/L Alkaline Phosphatase (38-126) U/L Total Protein (6.3-8.2) g/dL Albumin (3.5-5.0) g/dL Lipase (23-300) U/L Urine Color Yellow Urine Appearance Cloudy H (Clear) Urine pH 5.5 (5.0-8.0) Ur Specific [place] 1.029 (1.001-1.035) Urine Protein 1+ H (Negative) Urine Glucose (UA) Negative (Negative) Urine Ketones Negative (Negative) Urine Blood Negative (Negative) Urine Nitrite Negative (Negative) Urine Bilirubin Negative (Negative) Urine Urobilinogen 2.0 (<2.0) mg/dL Ur Leukocyte Esterase Negative (Negative) Urine WBC 1 (0-5) /hpf Ur Squamous Epith Cells 4 (0-4) /hpf Urine Bacteria Rare H (None) /hpf Urine Mucus Few H (None) /hpf 02/10/20 02/10/20 Range/Units 16:17 16:17 WBC (3.8-10.6) k/uL RBC (3.80-5.40) m/uL Hgb (11.4-16.0) gm/dL Hct (34.0-46.0) % MCV (80.0-100.0) fL MCH (25.0-35.0) pg MCHC (31.0-37.0) g/dL RDW (11.5-15.5) % Plt Count (150-450) k/uL Neutrophils % % Lymphocytes % % Monocytes % % Eosinophils % % Basophils % % Neutrophils # (1.3-7.7) k/uL Lymphocytes # (1.0-4.8) k/uL Monocytes # (0-1.0) k/uL Eosinophils # (0-0.7) k/uL Basophils # (0-0.2) k/uL Manual Slide Review RBC Morphology PT (9.0-12.0) sec INR (<1.2) APTT (22.0-30.0) sec Sodium 136 L (137-145) mmol/L Potassium 3.9 (3.5-5.1) mmol/L Chloride 105 (98-107) mmol/L Carbon Dioxide 22 (22-30) mmol/L Anion Gap 9 mmol/L BUN 16 (7-17) mg/dL Creatinine 0.66 (0.52-1.04) mg/dL Est GFR (CKD-EPI)AfAm >90 (>60 ml/min/1.73 sqM) Est GFR (CKD-EPI)NonAf >90 (>60 ml/min/1.73 sqM) Glucose 125 H (74-99) mg/dL Plasma Lactic Acid Live 1.4 (0.7-2.0) mmol/L Calcium 8.5 (8.4-10.2) mg/dL Total Bilirubin 0.6 (0.2-1.3) mg/dL AST 53 H (14-36) U/L ALT 45 H (4-34) U/L Alkaline Phosphatase 68 (38-126) U/L Total Protein 6.4 (6.3-8.2) g/dL Albumin 3.9 (3.5-5.0) g/dL Lipase 89 (23-300) U/L Urine Color Urine Appearance (Clear) Urine pH (5.0-8.0) Ur Specific [place] (1.001-1.035) Urine Protein (Negative) Urine Glucose (UA) (Negative) Urine Ketones (Negative) Urine Blood (Negative) Urine Nitrite (Negative) Urine Bilirubin (Negative) Urine Urobilinogen (<2.0) mg/dL Ur Leukocyte Esterase (Negative) Urine WBC (0-5) /hpf Ur Squamous Epith Cells (0-4) /hpf Urine Bacteria (None) /hpf Urine Mucus (None) /hpf Disposition Clinical Impression: Left lower quadrant pain, Diverticulosis, Fever, Allergy to multiple antibiotics Disposition: HOME SELF-CARE Condition: Stable Instructions (If sedation given, give patient instructions): Diverticulosis (ED), Abdominal Pain (ED) Additional Instructions: Please call and make an appointment to see Dr. Garcia on Wednesday. Return to the emergency department should your symptoms not improve on antibiotics. Take Motrin and Tylenol alternating every 4 hours for fever control. Prescriptions: Cefuroxime Axetil [Ceftin] 500 mg PO BID 1 Days #20 tab metroNIDAZOLE [Flagyl] 500 mg PO TID #30 tab Is patient prescribed a controlled substance at d/c from ED?: No Referrals: Tyler Andrade MD [Primary Care Provider] - 1-2 days Darinel Garcia MD [STAFF PHYSICIAN] - 1-2 days Time of Disposition: 18:56
== END 2020-02-10 19:41 | disposition home or self-care (01) ==
LOC: EC 15:31
DX: K57.30 Diverticulosis of large intestine without perforation or abscess without bleeding (principal); I10 Essential (primary) hypertension; Z79.899 Other long term (current) drug therapy; Z88.0 Allergy status to penicillin; Z88.1 Allergy status to other antibiotic agents; Z90.49 Acquired absence of other specified parts of digestive tract; Z90.710 Acquired absence of both cervix and uterus; Z87.891 Personal history of nicotine dependence
CPT/HCPCS: 36415; 80053; 83605; 83690; 85025; 85610; 85730; 81001; 74177; 99284; 96365; 96375; 96361; J2405; J0692; Q9967

== ENCOUNTER → 2020-03-26 | Outpatient (CLI) | payer MEDICARE, OTHER ==
--- NOTE | 2020-03-26 12:37 | US ---
EXAMINATION TYPE: US liver DATE OF EXAM: 03/26/2020 COMPARISON: CT 02/10/2020 CLINICAL HISTORY: 49-year-old female R74.8 Elevated liver enzymes. Elevated liver enzymes, history of cholecystectomy. TECHNIQUE: Multiple sonographic images of the right upper quadrant are obtained. FINDINGS: EXAM MEASUREMENTS: Liver Length: 14.8 cm Gallbladder: surgically absent CBD: 0.6 cm Right Kidney: 10.6 x 4.9 x 5.3 cm Pancreas: Limited by overlying midline bowel gas. Only portions of the pancreatic neck and body are seen and show no gross abnormality. Liver: Echogenic with heterogeneous echotexture. No focal lesion seen. Gallbladder: surgically absent Evidence for sonographic Lucas's sign: no CBD: Upper limits of normal, acceptable given postcholecystectomy status. Right Kidney: No hydronephrosis. IMPRESSION: 1. Echogenic and heterogeneous appearance to the liver. Correlate for underlying hepatic steatosis or other nonspecific hepatocellular disease. 2. Bile duct upper limits of normal in caliber, acceptable given postcholecystectomy status.
== END | disposition home or self-care (01) ==
LOC: RADUSWWP 07:37
PROVIDERS: ATTEND Family Medicine
DX: R93.2 Abnormal findings on diagnostic imaging of liver and biliary tract (principal); R74.8 Abnormal levels of other serum enzymes; Z90.49 Acquired absence of other specified parts of digestive tract
CPT/HCPCS: 76705

== ENCOUNTER 2020-04-11 09:33 | Day surgery (SDC) | payer MEDICARE, OTHER ==
[2020-04-08 15:38] VITALS: BMI 33.8
[~2020-04-11 09:33] MED LIST changes: -ACETAMINOPHEN TAB 500 MG TAB PO ONE; -CLINDAMYCIN 900 MG in DEXTROSE 5% IN WATER 50 ML IVPB ONE; -FAMOTIDINE 20 MG/2 ML VIAL IV PRN; -GENTAMICIN 320 MG in SODIUM CHLORIDE 0.9% 100 ML IVPB ONE; -HEPARIN SODIUM,PORCINE 5,000 UNIT/ML 1 ML VIAL SQ ONE; -HYDROmorphone 0.5 MG/0.5 ML SYRINGE IVP PRN; +LACTATED RINGERS 1,000 ML IV SCH
[2020-04-11 10:24] VITALS: TEMP 97.8
[2020-04-11] MEDS ORDERED: LACTATED RINGERS 1,000 ML IV ONE (10:24)
[2020-04-11] MEDS ORDERED: ONDANSETRON 4 MG/2 ML VIAL ONE (10:25)
[2020-04-11] MEDS ORDERED: SCOPOLAMINE 1.5MG/72HR PATCH TRANSDERM ONE (10:33)
[2020-04-11] MEDS ORDERED: LIDOCAINE 1% INJ 10MG/ML (20 ML MDV) ONE (11:24)
[2020-04-11] MEDS ORDERED: PROPOFOL 10 MG/ML 20 ML VIAL IV ONE (11:24)
--- NOTE | 2020-04-11 11:25 | P.GSHP ---
History of Present Illness H&P Date: 04/11/20 Chief Complaint: History of diverticulitis Is a 49-year-old female presents today for colonoscopy. She's had issues with diverticulitis. Past Medical History Past Medical History: Hypertension, Rheumatoid Arthritis (RA) Additional Past Medical History / Comment(s): Diverticulitis History of Any Multi-Drug Resistant Organisms: None Reported Past Surgical History: Section, Cholecystectomy, Hysterectomy, Orthopedic Surgery, Tonsillectomy Additional Past Surgical History / Comment(s): L rotator cuff repair. Adhesion surgery Past Anesthesia/Blood Transfusion Reactions: No Reported Reaction Additional Past Alcohol Use History / Comment(s): Quit 21 years ago. - Past Family History Mother Family Medical History: Myocardial Infarction ([place]) Father Family Medical History: Cancer Additional Family Medical History / Comment(s): Lung Medications and Allergies Home Medications Medication Instructions Recorded Confirmed Type Losartan [Cozaar] 25 mg PO DAILY@1200 04/18/19 04/08/20 History Allergies Allergy/AdvReac Type Severity Reaction Status Date / Time amoxicillin Allergy Anaphylaxis Verified 04/08/20 15:31 azithromycin Allergy Rash/Hives Verified 04/08/20 15:31 [From Zithromax Z-Jhonathan] ciprofloxacin Allergy Anaphylaxis Verified 04/08/20 15:31 Penicillins Allergy Anaphylaxis Verified 04/08/20 15:31 tetracycline Allergy Anaphylaxis Verified 04/08/20 15:31 Surgical - Exam Vital Signs Temp Pulse Resp BP Pulse Ox 97.8 F 94 18 141/90 95 04/11/20 10:23 04/11/20 10:23 04/11/20 10:23 04/11/20 10:23 04/11/20 10:23 - General well developed, well nourished, no distress - Eyes PERRL - ENT normal pinna - Neck no masses - Respiratory normal expansion - Cardiovascular Rhythm: regular - Abdomen Abdomen: soft, non tender Assessment and Plan Assessment: Diverticulitis. We'll perform colonoscopy.
--- NOTE | 2020-04-11 11:38 | P.OP ---
Date of Procedure: 04/11/20 Preoperative Diagnosis: Diverticulitis Postoperative Diagnosis: Diverticulosis Procedure(s) Performed: Colonoscopy Anesthesia: DANIEL Surgeon: Darinel Garcia Pathology: none sent Condition: stable Disposition: PACU Description of Procedure: Patient's placed on the endoscopy table in the lateral position. She received IV sedation. Digital rectal exam was performed which revealed no abnormalities. Flexible colonoscope was then placed patient anus passed throughout the entire colon. The ileocecal valve was visualized. The cecum, ascending and transverse colon appeared normal. In the descending and sigmoid colon there is moderate diverticular changes. The scope was then brought back the rectum and this appeared normal. Scope withdrawn for patient.
[2020-04-11] MEDS ORDERED: METOCLOPRAMIDE 5 MG/ML 2 ML VIAL ONE (12:19)
[2020-04-11] MEDS ORDERED: DEXAMETHASONE SOD PHOSPHATE 4 MG/ML 1 ML VIAL IVP ONE (12:20)
[2020-04-11] MEDS ORDERED: METOCLOPRAMIDE 5 MG/ML 2 ML VIAL IVP ONE (12:22)
[2020-04-11 12:54] VITALS: BP 139/84; PULSE 79; RESP 17
== END 2020-04-11 12:49 | disposition home or self-care (01) ==
LOC: ORWHC2ENDO 09:33
PROVIDERS: ATTEND Surgery
DX: K57.30 Diverticulosis of large intestine without perforation or abscess without bleeding (principal); I10 Essential (primary) hypertension; M06.9 Rheumatoid arthritis, unspecified; Z88.0 Allergy status to penicillin; Z88.1 Allergy status to other antibiotic agents; Z90.710 Acquired absence of both cervix and uterus; Z90.49 Acquired absence of other specified parts of digestive tract; Z98.891 History of uterine scar from previous surgery; Z90.89 Acquired absence of other organs; Z98.890 Other specified postprocedural states; Z79.899 Other long term (current) drug therapy; Z82.49 Family history of ischemic heart disease and other diseases of the circulatory system; Z80.1 Family history of malignant neoplasm of trachea, bronchus and lung
CPT/HCPCS: 45378; J1100; J2765; J2405; J2001; J2704

== ENCOUNTER → 2020-04-29 | Outpatient (CLI) | payer MEDICARE, OTHER ==
[2020-04-29 14:35] LABS: HCT 42.3 % (34.0-46.0); HGB 14.4 gm/dL (11.4-16.0); MCH 29.6 pg (25.0-35.0); MCHC 34.2 g/dL (31.0-37.0); MCV 86.6 fL (80.0-100.0); Platelet Count 262 k/uL (150-450); RBC 4.88 m/uL (3.80-5.40); RDW 13.2 % (11.5-15.5); WBC 6.1 k/uL (3.8-10.6)
[2020-04-29 14:52] LABS: Potassium 4.6 mmol/L (3.5-5.1)
== END | disposition home or self-care (01) ==
LOC: LABPAT 13:13
PROVIDERS: ATTEND Surgery
DX: Z01.818 Encounter for other preprocedural examination (principal); K57.33 Diverticulitis of large intestine without perforation or abscess with bleeding
CPT/HCPCS: 36415; 80051; 85027

== ENCOUNTER → 2020-04-30 | Outpatient (CLI) | payer MEDICARE, OTHER | END | disposition home or self-care (01) | LOC: LABPAT 15:04 | PROVIDERS: ATTEND Surgery | DX: Z01.818 Encounter for other preprocedural examination (principal); K57.33 Diverticulitis of large intestine without perforation or abscess with bleeding | CPT/HCPCS: 36415; 86850; 86870; 86880; 86900; 86901 ==

== ENCOUNTER 2020-05-08 09:01 | Inpatient (IN) | payer MEDICARE, OTHER ==
[~2020-05-08 09:01] MED LIST changes: +ACETAMINOPHEN TAB 500 MG TAB PO PRN; +CLINDAMYCIN 900 MG in DEXTROSE 5% IN WATER 50 ML IVPB PRN; +GENTAMICIN 320 MG in SODIUM CHLORIDE 0.9% 100 ML IVPB PRN; +HEPARIN SODIUM,PORCINE 5,000 UNIT/ML 1 ML VIAL SQ PRN; +HYDROmorphone 0.5 MG/0.5 ML SYRINGE IVP PRN; -LACTATED RINGERS 1,000 ML IV SCH; +MIDAZOLAM 2 MG/2 ML VIAL IV PRN
[2020-05-08] MEDS ORDERED: ONDANSETRON 4 MG/2 ML VIAL ONE (10:17)
[2020-05-08] MEDS ORDERED: SCOPOLAMINE 1.5MG/72HR PATCH TRANSDERM ONE (10:52)
[2020-05-08] MEDS ORDERED: ALVIMOPAN 12 MG CAPSULE PO ONE (10:52)
[2020-05-08] MEDS: LACTATED RINGERS 1,000 ML IV SCH (10:52)
[2020-05-08] MEDS ORDERED: DEXAMETHASONE SOD PHOSPHATE 4 MG/ML 1 ML VIAL IV ONE (10:54)
[2020-05-08] MEDS ORDERED: ePHEDrine SULFATE/0.9% NACL/PF 50 MG/5 ML SYRINGE IV ONE (14:00)
[2020-05-08] MEDS ORDERED: ROCURONIUM 10 MG/ML (10 ML VIAL) IV ONE (14:00)
[2020-05-08] MEDS ORDERED: fentaNYL (PF) 50 MCG/ML 2 ML AMP ONE (14:00)
[2020-05-08] MEDS ORDERED: HYDROmorphone (PF) 1 MG/ML ONE (14:00)
[2020-05-08] MEDS ORDERED: SUCCINYLCHOLINE CHLORIDE 100 MG/5 ML SYR IV ONE (14:00)
[2020-05-08] MEDS ORDERED: PROPOFOL 10 MG/ML 20 ML VIAL IV ONE (14:00)
[2020-05-08] MEDS ORDERED: MIDAZOLAM 2 MG/2 ML VIAL ONE (14:00)
[2020-05-08] MEDS ORDERED: NEOSTIGMINE 1 MG/ML 10 ML VIAL ONE (14:00)
[2020-05-08] MEDS ORDERED: GLYCOPYRROLATE 0.2 MG/ML 2 ML VIAL ONE (14:00)
[2020-05-08] MEDS ORDERED: KETOROLAC 15 MG/ML 1 ML VIAL ONE (14:00)
[2020-05-08] MEDS ORDERED: LIDOCAINE 1% INJ 10MG/ML (20 ML MDV) ONE (14:00)
[2020-05-08] MEDS ORDERED: LACTATED RINGERS 1,000 ML IV ONE ×3 (14:10→16:10)
[2020-05-08] MEDS ORDERED: ROPIVACAINE 500 MG, HYDROMORPHONE (PF) 5 MG in SODIUM CHLORIDE 0.9% 150 ML EPIDURAL PRN (15:48)
[2020-05-08] MEDS ORDERED: NALOXONE 0.4 MG/ML 1 ML VIAL IV PRN (15:48)
[2020-05-08] MEDS ORDERED: ONDANSETRON 4 MG/2 ML VIAL IVP ONE (15:55)
[2020-05-08] MEDS ORDERED: diphenhydrAMINE 50 MG/ML 1 ML VIAL IVP ONE (16:38)
[2020-05-09] MEDS: LACTATED RINGERS 1,000 ML IV SCH (05:45)
--- NOTE | 2020-05-09 07:55 | P.PN ---
Progress Note - Text Progress Note Date: 05/09/20 The patient has a Thoracic epidural catheter for postoperative pain control. Postop day #( 1 ), status post low anterior resection The patient is doing well. The pain is well controlled. Patient denies any weakness or paresthesia in the lower extremities.,or any back pain. She has normal muscle strength in the lower extremities by exam. There are no signs of infection around the epidural catheter skin entry site. We will continue the epidural infusion of local anesthetics as per protocol.
[2020-05-09] MEDS ORDERED: SODIUM CHLORIDE 0.9% 1,000 ML IV ONE (08:00)
[2020-05-09] MEDS: PANTOPRAZOLE 40 MG/10 ML VIAL IVP SCH (08:51)
[2020-05-09] MEDS: HEPARIN SODIUM,PORCINE 5,000 UNIT/ML 1 ML VIAL SQ SCH ×2 (08:52→20:13)
[2020-05-09] MEDS: SODIUM CHLORIDE 0.9% 1,000 ML IV SCH ×2 (08:58→17:59)
[2020-05-09 09:33] LABS: Basophils % (A) 0 %; Eosinophils # (A) 0.1 k/uL (0-0.7); Eosinophils % (A) 1 %; HCT 37.3 % (34.0-46.0); HGB 12.4 gm/dL (11.4-16.0); Lymphocytes # (A) 0.6 k/uL (1.0-4.8); Lymphocytes % (A) 6 %; MCH 29.7 pg (25.0-35.0); MCHC 33.4 g/dL (31.0-37.0); MCV 89.1 fL (80.0-100.0); Mean Platelet Volume 7.2; Monocytes # (A) 0.8 k/uL (0-1.0); Monocytes % (A) 8 %; Neutrophils # (A) 8.8 k/uL (1.3-7.7); Neutrophils % (A) 84 %; Platelet Count 250 k/uL (150-450); RBC 4.18 m/uL (3.80-5.40); RDW 13.3 % (11.5-15.5); WBC 10.4 k/uL (3.8-10.6)
[2020-05-09 10:12] LABS: ALT 36 U/L (4-34); AST 34 U/L (14-36); African American GFR (CKD) 21 (>60 ml/min/1.73 sqM); Albumin 3.3 g/dL (3.5-5.0); Albumin/Globulin Ratio 1.4; Alkaline Phosphatase 50 U/L (38-126); Anion Gap 5 mmol/L; Blood Urea Nitrogen 35 mg/dL (7-17); Calcium 7.7 mg/dL (8.4-10.2); Carbon Dioxide 25 mmol/L (22-30); Chloride 108 mmol/L (98-107); Globulin 2.3 g/dL; Glucose 131 mg/dL (74-99); Non-African American GFR(CKD) 18 (>60 ml/min/1.73 sqM); Potassium 5.2 mmol/L (3.5-5.1); Sodium 138 mmol/L (137-145); Total Bilirubin 0.5 mg/dL (0.2-1.3); Total Protein 5.6 g/dL (6.3-8.2)
[2020-05-09] MEDS ORDERED: SODIUM CHLORIDE 0.9% 2,000 ML IV ONE (13:57)
--- NOTE | 2020-05-09 14:00 | P.PN ---
Subjective Progress Note Date: 05/09/20 CHIEF COMPLAINT: History of diverticulitis HISTORY OF PRESENT ILLNESS: Patient is status post lower anterior resection. She is postop day #1. She has epidural in place for pain control. Unfortunately patient received only minimal IV fluids through the night. This morning she is hypotensive. Patient does feel dry, dehydrated and nauseated. She received 2 L fluid bolus this morning and her epidural was decreased. Patient denies passing gas or bowel movements. She is afebrile. WBC 10.4 hemoglobin 12.4 potassium 5.2 creatinine is 2.88 Patient is making urine. PHYSICAL EXAM: VITAL SIGNS: Reviewed. GENERAL: Well-developed in no acute distress. HEENT: No sclera icterus. Extraocular movements grossly intact. Moist buccal mucosa. Head is atraumatic, normocephalic. ABDOMEN: Soft. Mildly distended. Dressing is saturated with blood. Incision site is clean dry and intact. NEUROLOGIC: Alert and oriented. Cranial nerves II through XII grossly intact. ASSESSMENT: 1. Diverticulitis status post lower anterior resection 2. Acute kidney injury likely secondary to dehydration from not enough IV fluids 3. Hyperkalemia secondary to acute kidney injury. Follow-up on labs in a.m. PLAN: -We'll give patient an additional 2 L fluid bolus -Then continue IV fluids normal saline at 125 mL per hour -Repeat CBC and CMP in a.m. -Keep patient nothing by mouth -Continue epidural for pain control -Continue to monitor urine output -Consult medicine for medical management -GI prophylaxis Protonix and DVT prophylaxis subcu heparin Physician Circuit Court Clerk note has been reviewed by physician. Signing provider agrees with the documented findings, assessment, and plan of care. Objective - Vital Signs Vital signs: Vital Signs Temp 97.9 F 05/09/20 07:46 Pulse 67 05/09/20 11:52 Resp 18 05/09/20 11:52 BP 91/50 05/09/20 11:52 Pulse Ox 93 L 05/09/20 10:15 Intake & Output 05/08/20 05/09/20 05/09/20 18:59 06:59 18:59 Intake Total 1564 Output Total 280 100 Balance 1284 -100 Weight 93.7 kg Intake: IV 1564 Output: Urine 230 100 Estimated Blood Loss 50 Other: Voiding Method Indwelling Catheter - Labs CBC & Chem 7: 05/09/20 09:14 05/09/20 09:14 Labs: Abnormal Lab Results - Last 24 Hours (Table) 05/09/20 05/09/20 Range/Units 09:14 09:14 Neutrophils # 8.8 H (1.3-7.7) k/uL Lymphocytes # 0.6 L (1.0-4.8) k/uL Potassium 5.2 H (3.5-5.1) mmol/L Chloride 108 H (98-107) mmol/L BUN 35 H (7-17) mg/dL Creatinine 2.88 H (0.52-1.04) mg/dL Glucose 131 H (74-99) mg/dL Calcium 7.7 L (8.4-10.2) mg/dL ALT 36 H (4-34) U/L Total Protein 5.6 L (6.3-8.2) g/dL Albumin 3.3 L (3.5-5.0) g/dL
--- NOTE | 2020-05-09 17:53 | P.ANPRN ---
Procedure Note - Anesthesia - Epidural/Spinal Epidural Continuous Time Out Performed: Yes Date of Procedure: 05/08/20 Procedure Start Time: 11:27 Procedure Stop Time: 11:34 Location of Patient: PreOp Indication: Acute Post-Operative Pain, Requested by Surgeon Sedation Type: Sedate with meaningful contact maintained Preparation: Sterile Dressing Position: Sitting Catheter: Indwelling Needle Guage: 18 Injectate: Test Dose Lidocaine1.5% w/1:200,000 epi Blood Aspirated: No Pain Paresthesia on Injection Noted: No Events: Uneventful and Well Tolerated (test dose 3cc given negative)
[2020-05-10] MEDS: SODIUM CHLORIDE 0.9% 1,000 ML IV SCH ×3 (03:02→19:02)
[2020-05-10] MEDS: LACTATED RINGERS 1,000 ML IV SCH (05:01)
[2020-05-10 06:53] LABS: Basophils % (A) 0 %; Eosinophils # (A) 0.3 k/uL (0-0.7); Eosinophils % (A) 5 %; HGB 11.7 gm/dL (11.4-16.0); Lymphocytes # (A) 0.8 k/uL (1.0-4.8); Lymphocytes % (A) 11 %; MCHC 34.3 g/dL (31.0-37.0); MCV 87.5 fL (80.0-100.0); Mean Platelet Volume 6.9; Monocytes # (A) 0.4 k/uL (0-1.0); Monocytes % (A) 6 %; Neutrophils # (A) 5.3 k/uL (1.3-7.7); Neutrophils % (A) 77 %; Platelet Count 191 k/uL (150-450); RBC 3.89 m/uL (3.80-5.40); RDW 13.1 % (11.5-15.5); WBC 6.9 k/uL (3.8-10.6)
--- NOTE | 2020-05-10 07:32 | P.PN ---
Progress Note - Text 05/10 20 49-year-old female status post low anterior resection by Dr. meeks. Patient has an epidural catheter for postop pain control with the solution running at 3mL an hour with a VAS of 2. Hemodynamically stable no complains of nausea vomiting. No complaints of motor or sensory deficits plan to continue epidural infusion and DC epidural in a.m. tomorrow
[2020-05-10] MEDS: HEPARIN SODIUM,PORCINE 5,000 UNIT/ML 1 ML VIAL SQ SCH ×2 (08:10→20:23)
[2020-05-10] MEDS: PANTOPRAZOLE 40 MG/10 ML VIAL IVP SCH (08:10)
[2020-05-10 10:11] LABS: African American GFR (CKD) 99.6 (60.0-200.0); Albumin 3.4 g/dL (3.80-4.90); Albumin/Globulin Ratio 2.43 (1.60-3.17); Anion Gap 6.8 mmol/L (4.00-12.00); BUN/Creat Ratio 27.5 Ratio (12.00-20.00); Calcium 7.6 mg/dL (8.7-10.3); Carbon Dioxide 23.2 mmol/L (21.6-31.8); Globulin 1.4 g/dL (1.6-3.3); Potassium 4.4 mmol/L (3.5-5.5); Total Bilirubin 0.6 mg/dL (0.3-1.2); Total Protein 4.8 g/dL (6.2-8.2)
--- NOTE | 2020-05-10 12:25 | P.PN ---
Subjective Progress Note Date: 05/10/20 CHIEF COMPLAINT: History of diverticulitis HISTORY OF PRESENT ILLNESS: Patient is status post lower anterior resection. She is postop day #2. She has epidural in place for pain control. Patient still is having some mild nausea. But she is feeling much better than yesterday. She denies any flatus or BM. Epidural scheduled to be discontinued tomorrow. She is currently nothing by mouth. Her creatinine has improved from 2.88 down to 0.8. She's had appropriate urine output. Afebrile. WBC 6.9 po tassium 4.4 PHYSICAL EXAM: VITAL SIGNS: Reviewed. GENERAL: Well-developed in no acute distress. HEENT: No sclera icterus. Extraocular movements grossly intact. Moist buccal mucosa. Head is atraumatic, normocephalic. ABDOMEN: Soft. Mildly distended. Dressing minimal area of small blood noted on dressing NEUROLOGIC: Alert and oriented. Cranial nerves II through XII grossly intact. ASSESSMENT: 1. Diverticulitis status post lower anterior resection 2. Acute kidney injury likely secondary to dehydration from not enough IV fluids 3. Hyperkalemia secondary to acute kidney injury. Now resolved PLAN: -Continue IV fluids -Repeat CBC and CMP in a.m. -Keep patient nothing by mouth -Continue epidural for pain control -Continue incentive spirometer use and encouraged patient to ambulate -GI prophylaxis Protonix and DVT prophylaxis subcu heparin Physician Diagnostic Radiologist note has been reviewed by physician. Signing provider agrees with the documented findings, assessment, and plan of care. Objective - Vital Signs Vital signs: Vital Signs Temp 97.7 F 05/10/20 08:00 Pulse 94 05/10/20 08:00 Resp 16 05/10/20 08:00 BP 123/77 05/10/20 08:00 Pulse Ox 95 05/10/20 08:00 Intake & Output 05/09/20 05/10/20 05/10/20 18:59 06:59 18:59 Intake Total 1000 Output Total 630 900 Balance -630 100 Intake: Intake, IV Titration 1000 Amount Sodium Chloride 0.9% 1, 1000 000 ml @ 125 mls/hr IV . Q8H [facility] Rx#:[id number] Output: Urine 630 900 Other: Voiding Method Indwelling Catheter Indwelling Catheter - Labs CBC & Chem 7: 05/10/20 06:17 05/10/20 06:17 Labs: Abnormal Lab Results - Last 24 Hours (Table) 05/10/20 05/10/20 Range/Units 06:17 06:17 Lymphocytes # 0.8 L (1.0-4.8) k/uL BUN/Creatinine Ratio 27.50 H (12.00-20.00) Ratio Calcium 7.6 L (8.7-10.3) mg/dL AST 75 H (13-35) U/L ALT 52 H (8-44) U/L Total Protein 4.8 L (6.2-8.2) g/dL Albumin 3.40 L (3.80-4.90) g/dL Globulin 1.4 L (1.6-3.3) g/dL
[2020-05-10] MEDS: LOSARTAN 25 MG TAB PO SCH (12:39)
--- NOTE | 2020-05-10 21:40 | P.CONS ---
History of Present Illness - Reason for Consult Consult date: 05/10/20 Medical management Requesting physician: Darinel Garcia - Chief Complaint Abdominal pain - History of Present Illness Consultation: This is a pleasant 49-year-old patient of Dr. cotton. Patient's had in the past at least 3 or 4 bouts of diverticulitis. Patient now has undergone low anterior resection. Has epidural in place. No nausea vomiting. Allowed ice chips. IV fluids. No fever no chills. Surgery was done yesterday. No flatus. Laying in bed. Review of systems: GEN.: Tired EYES: None HEENT: None NECK: None RESPIRATORY: None CARDIOVASCULAR: None GASTROINTESTINAL: [Abdominal pain GENITOURINARY: None MUSCULOSKELETAL: None LYMPHATICS: None HEMATOLOGICAL: None PSYCHIATRY: None NEUROLOGICAL: None Past medical history to include: Recurrent bouts of diverticulitis, hypertension, vertebral arthritis, Social history: Lives alone. No alcohol. Patient smoked a pack a day for 15 years stopped 22 years ago. Physical examination: VITAL SIGNS: 97.7, 94, 16, 123/77, 95% on 2 L GENERAL: BMI 37.8, laying in bed, slightly tired. EYES: Pupils equal. Conjunctiva normal. HEENT: External appearance of nose and ears normal, oral cavity grossly normal. NECK: JVD not raised; masses not palpable. HEART: First and second heart sounds are normal; no edema. LUNGS: Respiratory rate normal; clear to auscultation. ABDOMEN: Soft, some tenderness, dressing over the incision site, absent bowel sounds liver spleen not palpable, no masses palpable. PSYCH: Alert and oriented x3; mood and affect normal. NEUROLOGICAL: Cranial nerves grossly intact; no facial asymmetry, power and sensation grossly intact. LYMPHATICS: No lymph nodes palpable in the axilla and neck INVESTIGATIONS, reviewed in the clinical context: White count 6.9 hemoglobin 11.7 platelets 191 potassium 4.4 BUN 22 creatinine 0.8 albumin 3.4 Previous testing: Potassium 5.2 BUN 35 creatinine 2.88-on May 09 Assessment: -Low anterior resection for recurrent episodes of diverticulitis -Acute kidney injury possibly ATN, now improved -Hyperkalemia from acute kidney injury, improved -Essential hypertension -Patient has an epidural for pain control Plan: Patient getting IV fluids, pain control in place with epidural. Resume patient's Cozaar. Care was discussed with the patient questions answered. Patient told to use chewing gum. Out of bed as tolerated. Thank you Dr. Garcia Past Medical History Past Medical History: Hypertension, Pneumonia, Rheumatoid Arthritis (RA) Additional Past Medical History / Comment(s): Diverticulitis, small hiatal hernia, protein in urine History of Any Multi-Drug Resistant Organisms: None Reported Past Surgical History: Section, Cholecystectomy, Hysterectomy, Orthopedic Surgery, Tonsillectomy Additional Past Surgical History / Comment(s): L shoulder rotator cuff repair. abdominal adhesion surgery , sinus surgery Past Anesthesia/Blood Transfusion Reactions: Motion Sickness, Postoperative Nausea & Vomiting (PONV) Smoking Status: Former smoker - Past Family History Mother Family Medical History: Myocardial Infarction ([place]) Father Family Medical History: Cancer Additional Family Medical History / Comment(s): Lung Medications and Allergies Home Medications Medication Instructions Recorded Confirmed Type Losartan [Cozaar] 25 mg PO 1100 04/18/19 05/08/20 History Allergies Allergy/AdvReac Type Severity Reaction Status Date / Time amoxicillin Allergy Anaphylaxis Verified 05/08/20 10:29 azithromycin Allergy Rash/Hives Verified 05/08/20 10:29 [From Zithromax Z-Jhonathan] ciprofloxacin Allergy Anaphylaxis Verified 05/08/20 10:29 Penicillins Allergy Anaphylaxis Verified 05/08/20 10:29 tetracycline Allergy Anaphylaxis Verified 05/08/20 10:29 Physical Exam Vitals: Vital Signs Temp Pulse Resp BP BP Pulse Ox 05/10/20 14:00 98.1 F 88 16 141/76 98 05/10/20 08:00 97.7 F 94 16 123/77 95 05/10/20 02:00 98.1 F 102 H 16 117/73 93 L Intake and Output 05/10/20 05/10/20 05/10/20 06:59 14:59 22:59 Intake Total 1000 0 Output Total 900 900 Balance 100 -900 Intake: Intake, IV Titration 1000 Amount Sodium Chloride 0.9% 1, 1000 000 ml @ 125 mls/hr IV . Q8H [facility] Rx#:[id number] Oral 0 Output: Urine 900 900 Other: Voiding Method Indwelling Catheter Indwelling Catheter Results CBC & Chem 7: 05/10/20 06:17 05/10/20 06:17 Labs: Abnormal Lab Results - Last 24 Hours (Table) 05/10/20 05/10/20 Range/Units 06:17 06:17 Lymphocytes # 0.8 L (1.0-4.8) k/uL BUN/Creatinine Ratio 27.50 H (12.00-20.00) Ratio Calcium 7.6 L (8.7-10.3) mg/dL AST 75 H (13-35) U/L ALT 52 H (8-44) U/L Total Protein 4.8 L (6.2-8.2) g/dL Albumin 3.40 L (3.80-4.90) g/dL Globulin 1.4 L (1.6-3.3) g/dL
[2020-05-11] MEDS: SODIUM CHLORIDE 0.9% 1,000 ML IV SCH ×3 (00:40→18:57)
[2020-05-11 07:17] LABS: Basophils % (A) 0 %; Eosinophils # (A) 0.3 k/uL (0-0.7); Eosinophils % (A) 5 %; HCT 35.6 % (34.0-46.0); HGB 11.8 gm/dL (11.4-16.0); Lymphocytes % (A) 14 %; MCH 28.4 pg (25.0-35.0); Mean Platelet Volume 8.2; Monocytes # (A) 0.5 k/uL (0-1.0); Monocytes % (A) 7 %; Neutrophils # (A) 5.1 k/uL (1.3-7.7); Neutrophils % (A) 73 %; Platelet Count 220 k/uL (150-450); RBC 4.14 m/uL (3.80-5.40); RDW 13.1 % (11.5-15.5)
[2020-05-11] MEDS: HEPARIN SODIUM,PORCINE 5,000 UNIT/ML 1 ML VIAL SQ SCH ×2 (07:52→21:35)
[2020-05-11] MEDS: PANTOPRAZOLE 40 MG/10 ML VIAL IVP SCH (08:02)
--- NOTE | 2020-05-11 08:26 | P.PN ---
Progress Note - Text Date: 05/11/2020 Time: 07:55 The patient is status post low anterior resection, postoperative day number 3 The patient has no complaints of nausea vomiting or headache. The patient does not complain of any lower extremity numbness or weakness. The epidural is running at 3 mL per hour. VAS 1-10 The epidural will be discontinued this a.m. Pain meds will be provided to the patient by the service.
[2020-05-11 11:56] LABS: African American GFR (CKD) 123.2 (60.0-200.0); Albumin 3.4 g/dL (3.80-4.90); Albumin/Globulin Ratio 1.89 (1.60-3.17); Anion Gap 8.4 mmol/L (4.00-12.00); Calcium 8.1 mg/dL (8.7-10.3); Carbon Dioxide 21.6 mmol/L (21.6-31.8); Globulin 1.8 g/dL (1.6-3.3); Non-African American GFR(CKD) 106.3 (60.0-200.0); Potassium 4.4 mmol/L (3.5-5.5); Total Bilirubin 0.5 mg/dL (0.2-1.2); Total Protein 5.2 g/dL (6.2-8.2)
[2020-05-11] MEDS: LOSARTAN 25 MG TAB PO SCH (11:59)
[2020-05-11] MEDS: LACTATED RINGERS 1,000 ML IV SCH (12:00)
--- NOTE | 2020-05-11 12:07 | P.PN ---
Progress Note - Text Progress Note Date: 05/11/20 Patient is a well. She still had no significant flatus. On exam vital signs are stable. Abdomen soft. Incisions clean and intact. Status post low anterior resection for diverticulitis. Patient will continue receive supportive care.
[2020-05-11] MEDS: HYDROmorphone 1 MG/ML 1 ML SYRINGE IVP PRN ×2 (17:49→21:48)
--- NOTE | 2020-05-11 23:21 | P.PN ---
Progress Note - Text Progress Note Date: 05/11/20 - Chief Complaint Abdominal pain Consultation: This is a pleasant 49-year-old patient of Dr. cotton. Patient's had in the past at least 3 or 4 bouts of diverticulitis. Patient now has undergone low anterior resection. Has epidural in place. Today-laying in bed. No flatus. No nausea vomiting. On ice chips. Review of systems: Was done for constitutional, cardiovascular, GI, pulmonary. relevant finding as above Active Medications Heparin Sodium (Porcine) (Heparin Sodium,Porcine 5,000 Unit/Ml 1 Ml Vial) 5,000 unit SQ Q12HR [facility] Last Admin: 05/11/20 21:35 Dose: Not Given Documented by: Hydromorphone HCl (Hydromorphone 1 Mg/Ml 1 Ml Syringe) 1 mg IVP Q3HR PRN PRN Reason: Pain Last Admin: 05/11/20 21:48 Dose: 1 mg Documented by: Lactated Ringer's (Lactated Ringers) 1,000 mls @ 20 mls/hr IV .Q24H [facility] Last Admin: 05/11/20 12:00 Dose: Not Given Documented by: Ropivacaine 500 mg/Hydromorphone HCl 5 mg/ Sodium Chloride 250 mls @ 0 mls/hr EPIDURAL .Q0M PRN; Protocol PRN Reason: Pain Control Last Admin: 05/08/20 16:32 Dose: 0 mls Documented by: Sodium Chloride (Saline 0.9%) 1,000 mls @ 125 mls/hr IV .Q8H [facility] Last Admin: 05/11/20 18:57 Dose: Not Given Documented by: Lidocaine HCl (Lidocaine 1% (10mg/Ml) For Iv Start) 0.1 ml INTRADERMA PER PROTOCOL PRN PRN Reason: IV Start Last Admin: 05/08/20 10:52 Dose: 0.1 ml Documented by: Losartan Potassium (Losartan 25 Mg Tab) 25 mg PO 1100 [facility] Last Admin: 05/11/20 11:59 Dose: 25 mg Documented by: Naloxone HCl (Naloxone 0.4 Mg/Ml 1 Ml Vial) 0.2 mg IV Q2M PRN PRN Reason: Opioid Reversal Ondansetron HCl (Ondansetron 4 Mg/2 Ml Vial) 4 mg IVP Q6HR PRN PRN Reason: Nausea And Vomiting Pantoprazole Sodium (Pantoprazole 40 Mg/10 Ml Vial) 40 mg IVP DAILY [facility] Last Admin: 05/11/20 08:02 Dose: 40 mg Documented by: Past medical history to include: Recurrent bouts of diverticulitis, hypertension, vertebral arthritis, Social history: Lives alone. No alcohol. Patient smoked a pack a day for 15 years stopped 22 years ago. Physical examination: VITAL SIGNS: 98.3, 88, 16, 153 with 85, 96% room air GENERAL: BMI 37.8, laying in bed, comfortable EYES: Pupils equal. Conjunctiva normal. HEENT: External appearance of nose and ears normal, oral cavity grossly normal. NECK: JVD not raised; masses not palpable. HEART: First and second heart sounds are normal; no edema. LUNGS: Respiratory rate normal; clear to auscultation. ABDOMEN: Soft, some tenderness, dressing over the incision site, absent bowel sounds liver spleen not palpable, no masses palpable. PSYCH: Alert and oriented x3; mood and affect normal. INVESTIGATIONS, reviewed in the clinical context: May 11: Recurrent 7 hemoglobin 11.8 potassium 4.4 creatinine 0.6 White count 6.9 hemoglobin 11.7 platelets 191 potassium 4.4 BUN 22 creatinine 0.8 albumin 3.4 Previous testing: Potassium 5.2 BUN 35 creatinine 2.88-on May 09 Assessment: -Low anterior resection for recurrent episodes of diverticulitis -Acute kidney injury possibly ATN, now improved -Hyperkalemia from acute kidney injury, improved -Essential hypertension -Patient has an epidural for pain control Plan: Patient getting IV fluids, ice chips. Other medications to continue. Follow with surgery discussed with patient Thank you Dr. Garcia
[2020-05-12] MEDS: SODIUM CHLORIDE 0.9% 1,000 ML IV SCH ×3 (00:10→18:22)
[2020-05-12] MEDS: HYDROmorphone 1 MG/ML 1 ML SYRINGE IVP PRN ×5 (02:05→21:31)
[2020-05-12] MEDS: LACTATED RINGERS 1,000 ML IV SCH (05:22)
[2020-05-12] MEDS: HEPARIN SODIUM,PORCINE 5,000 UNIT/ML 1 ML VIAL SQ SCH ×2 (08:22→21:34)
[2020-05-12] MEDS: PANTOPRAZOLE 40 MG/10 ML VIAL IVP SCH (08:22)
--- NOTE | 2020-05-12 11:16 | P.PN ---
Progress Note - Text Progress Note Date: 05/12/20 Patient feels better. On exam vital signs are stable. Abdomen is soft. Incisions clean and intact. Patient will have her Guillen catheter discontinued today. She'll be placed on a full liquid diet.
[2020-05-12] MEDS: LOSARTAN 25 MG TAB PO SCH (12:03)
[2020-05-12] MEDS ORDERED: FUROSEMIDE 10 MG/ML 2 ML VIAL IV ONE (20:54)
--- NOTE | 2020-05-12 20:54 | P.PN ---
Progress Note - Text Progress Note Date: 05/12/20 - Chief Complaint Abdominal pain Consultation: This is a pleasant 49-year-old patient of Dr. cotton. Patient's had in the past at least 3 or 4 bouts of diverticulitis. Patient now has undergone low anterior resection. Has epidural in place. Today-Advanced to a fluid diet. Pass some flatus. Has been out of bed. No nausea vomiting.. Review of systems: Was done for constitutional, cardiovascular, GI, pulmonary. relevant finding as above Active Medications Heparin Sodium (Porcine) (Heparin Sodium,Porcine 5,000 Unit/Ml 1 Ml Vial) 5,000 unit SQ Q12HR [facility] Last Admin: 05/12/20 08:22 Dose: Not Given Documented by: Hydromorphone HCl (Hydromorphone 1 Mg/Ml 1 Ml Syringe) 1 mg IVP Q3HR PRN PRN Reason: Pain Last Admin: 05/12/20 18:22 Dose: 1 mg Documented by: Lactated Ringer's (Lactated Ringers) 1,000 mls @ 20 mls/hr IV .Q24H [facility] Last Admin: 05/12/20 05:22 Dose: Not Given Documented by: Ropivacaine 500 mg/Hydromorphone HCl 5 mg/ Sodium Chloride 250 mls @ 0 mls/hr EPIDURAL .Q0M PRN; Protocol PRN Reason: Pain Control Last Admin: 05/08/20 16:32 Dose: 0 mls Documented by: Sodium Chloride (Saline 0.9%) 1,000 mls @ 125 mls/hr IV .Q8H [facility] Last Admin: 05/12/20 18:22 Dose: 125 mls/hr Documented by: Lidocaine HCl (Lidocaine 1% (10mg/Ml) For Iv Start) 0.1 ml INTRADERMA PER PROTOCOL PRN PRN Reason: IV Start Last Admin: 05/08/20 10:52 Dose: 0.1 ml Documented by: Losartan Potassium (Losartan 25 Mg Tab) 25 mg PO 1100 [facility] Last Admin: 05/12/20 12:03 Dose: 25 mg Documented by: Naloxone HCl (Naloxone 0.4 Mg/Ml 1 Ml Vial) 0.2 mg IV Q2M PRN PRN Reason: Opioid Reversal Ondansetron HCl (Ondansetron 4 Mg/2 Ml Vial) 4 mg IVP Q6HR PRN PRN Reason: Nausea And Vomiting Pantoprazole Sodium (Pantoprazole 40 Mg/10 Ml Vial) 40 mg IVP DAILY [facility] Last Admin: 05/12/20 08:22 Dose: Not Given Documented by: Past medical history to include: Recurrent bouts of diverticulitis, hypertension, vertebral arthritis, Social history: Lives alone. No alcohol. Patient smoked a pack a day for 15 years stopped 22 y ears ago. Physical examination: VITAL SIGNS: 98.1, 98, 16, 177/102, 99% room air GENERAL: BMI 37.8, laying in bed, comfortable EYES: Pupils equal. Conjunctiva normal. HEENT: External appearance of nose and ears normal, oral cavity grossly normal. NECK: JVD not raised; masses not palpable. HEART: First and second heart sounds are normal; no edema. LUNGS: Respiratory rate normal; clear to auscultation. ABDOMEN: Soft, some tenderness, dressing over the incision site, bowel sounds present, liver spleen not palpable, no masses palpable. PSYCH: Alert and oriented x3; mood and affect normal. INVESTIGATIONS, reviewed in the clinical context: May 11: Recurrent 7 hemoglobin 11.8 potassium 4.4 creatinine 0.6 White count 6.9 hemoglobin 11.7 platelets 191 potassium 4.4 BUN 22 creatinine 0.8 albumin 3.4 Previous testing: Potassium 5.2 BUN 35 creatinine 2.88-on May 09 Assessment: -Low anterior resection for recurrent episodes of diverticulitis-passed flatus today -Acute kidney injury possibly ATN, now improved -Hyperkalemia from acute kidney injury, improved -Essential hypertension-uncontrolled -Patient has an epidural for pain control Plan: We'll DC IV fluids. Other medications to continue. We will give a small dose of Lasix. Thank you Dr. Garcia
[2020-05-13] MEDS: ONDANSETRON 4 MG/2 ML VIAL IVP PRN ×2 (05:42→21:18)
[2020-05-13] MEDS: HYDROmorphone 1 MG/ML 1 ML SYRINGE IVP PRN (05:47)
[2020-05-13] MEDS: HEPARIN SODIUM,PORCINE 5,000 UNIT/ML 1 ML VIAL SQ SCH ×3 (07:39→20:11)
[2020-05-13] MEDS: LACTATED RINGERS 1,000 ML IV SCH (07:39)
[2020-05-13 09:09] LABS: African American GFR (CKD) 123.2 (60.0-200.0); Anion Gap 12.6 mmol/L (4.00-12.00); BUN/Creat Ratio 16.67 Ratio (12.00-20.00); Calcium 8.8 mg/dL (8.7-10.3); Carbon Dioxide 25.4 mmol/L (21.6-31.8); Non-African American GFR(CKD) 106.3 (60.0-200.0); Potassium 3.6 mmol/L (3.5-5.5)
[2020-05-13] MEDS: HYDROcodone/APAP 5-325MG 1 EACH TAB PO PRN ×2 (12:02→20:31)
[2020-05-13] MEDS: LOSARTAN 25 MG TAB PO SCH (12:02)
--- NOTE | 2020-05-13 13:38 | P.PN ---
Subjective Progress Note Date: 05/13/20 CHIEF COMPLAINT: History of diverticulitis HISTORY OF PRESENT ILLNESS: Patient is status post lower anterior resection. Patient complaining of nausea this morning. She is complaining of some incisional pain but controlled with pain medication. She denies any vomiting. She denies passing gas or having bowel movement. She's currently on a full liquid diet. She is afebrile. Heart rate 103 Medicine did Hep-Lock IV fluid just today and give 1 dose of IV Lasix. PHYSICAL EXAM: VITAL SIGNS: Reviewed. GENERAL: Well-developed in no acute distress. HEENT: No sclera icterus. Extraocular movements grossly intact. Moist buccal mucosa. Head is atraumatic, normocephalic. ABDOMEN: Soft. Mildly distended. Dressing minimal area of small blood noted on dressing NEUROLOGIC: Alert and oriented. Cranial nerves II through XII grossly intact. ASSESSMENT: 1. Diverticulitis status post lower anterior resection 2. Acute kidney injury likely secondary to dehydration from not enough IV fluids 3. Hyperkalemia secondary to acute kidney injury. Now resolved PLAN: -Continue full liquid diet -Continue pain medication as needed -Continue incentive spirometer use and encouraged patient to ambulate -GI prophylaxis Protonix and DVT prophylaxis subcu heparin Physician Aircraft Maintenance Supervisor note has been reviewed by physician. Signing provider agrees with the documented findings, assessment, and plan of care. Objective - Vital Signs Vital signs: Vital Signs Temp 98 F 05/13/20 07:07 Pulse 103 H 05/13/20 07:07 Resp 16 05/13/20 07:07 BP 124/81 05/13/20 07:07 Pulse Ox 94 L 05/13/20 07:07 Intake & Output 05/12/20 05/13/20 05/13/20 18:59 06:59 18:59 Other: Voiding Method Toilet # Voids 2 2 # Bowel Movements 0 - Labs CBC & Chem 7: 05/11/20 05:53 05/13/20 06:11 Labs: Abnormal Lab Results - Last 24 Hours (Table) 05/13/20 Range/Units 06:11 Anion Gap 12.60 H (4.00-12.00) mmol/L
--- NOTE | 2020-05-13 21:50 | XR ---
EXAM: Abdomen radiograph. HISTORY: Pain. TECHNIQUE: Supine and upright AP views. COMPARISON: 12/14/2019. FINDINGS: There is diffuse mild dilatation of the bowel loops. No radiographic evidence of significant free air . There are no pathologic calcifications. No acute osseous abnormality seen. Midline abdominal surgic al skin anurag seen. Pelvic phleboliths and suture noted. IMPRESSION: Findings suggestive of postoperative ileus.
--- NOTE | 2020-05-13 23:52 | P.PN ---
Progress Note - Text Progress Note Date: 05/13/20 - Chief Complaint Abdominal pain Consultation: This is a pleasant 49-year-old patient of Dr. cotton. Patient's had in the past at least 3 or 4 bouts of diverticulitis. Patient now has undergone low anterior resection. Has epidural in place. Today-on a full liquid diet. Having increasing abdominal pain. Has not had a bowel movement or any flatus. Abdominal x-ray ordered Review of systems: Was done for constitutional, cardiovascular, GI, pulmonary. relevant finding as above Active Medications Hydrocodone Bitart/Acetaminophen (Hydrocodone/Apap 5-325mg 1 Each Tab) 1 each PO Q4HR PRN PRN Reason: Pain Last Admin: 05/13/20 20:31 Dose: 1 each Documented by: Heparin Sodium (Porcine) (Heparin Sodium,Porcine 5,000 Unit/Ml 1 Ml Vial) 5,000 unit SQ Q12HR [facility] Last Admin: 05/13/20 20:11 Dose: Not Given Documented by: Hydromorphone HCl (Hydromorphone 1 Mg/Ml 1 Ml Syringe) 1 mg IVP Q3HR PRN PRN Reason: Pain Last Admin: 05/13/20 05:47 Dose: 1 mg Documented by: Lactated Ringer's (Lactated Ringers) 1,000 mls @ 20 mls/hr IV .Q24H [facility] Last Admin: 05/13/20 07:39 Dose: Not Given Documented by: Ropivacaine 500 mg/Hydromorphone HCl 5 mg/ Sodium Chloride 250 mls @ 0 mls/hr EPIDURAL .Q0M PRN; Protocol PRN Reason: Pain Control Last Admin: 05/08/20 16:32 Dose: 0 mls Documented by: Lidocaine HCl (Lidocaine 1% (10mg/Ml) For Iv Start) 0.1 ml INTRADERMA PER PROTOCOL PRN PRN Reason: IV Start Last Admin: 05/08/20 10:52 Dose: 0.1 ml Documented by: Losartan Potassium (Losartan 25 Mg Tab) 25 mg PO 1100 [facility] Last Admin: 05/13/20 12:02 Dose: 25 mg Documented by: Naloxone HCl (Naloxone 0.4 Mg/Ml 1 Ml Vial) 0.2 mg IV Q2M PRN PRN Reason: Opioid Reversal Ondansetron HCl (Ondansetron 4 Mg/2 Ml Vial) 4 mg IVP Q6HR PRN PRN Reason: Nausea And Vomiting Last Admin: 05/13/20 05:42 Dose: 4 mg Documented by: Past medical history to include: Recurrent bouts of diverticulitis, hypertension, vertebral arthritis, Social history: Lives alone. No alcohol. Patient smoked a pack a day for 15 years stopped 22 years ago. Physical examination: VITAL SIGNS: 97.5, 108, 16, 122/84, 96% room air GENERAL: BMI 37.8, laying in bed, comfortable EYES: Pupils equal. Conjunctiva normal. HEENT: External appearance of nose and ears normal, oral cavity grossly normal. NECK: JVD not raised; masses not palpable. HEART: First and second heart sounds are normal; no edema. LUNGS: Respiratory rate normal; clear to auscultation. ABDOMEN: Soft, some tenderness, some distention, dressing over the incision site, bowel sounds present, liver spleen not palpable, no masses palpable. PSYCH: Alert and oriented x3; mood and affect normal. INVESTIGATIONS, reviewed in the clinical context: May 13: Potassium 3.6 creatinine 0.6 Abdominal x-ray personally reviewed by me shows-dilatations of note May 11: Recurrent 7 hemoglobin 11.8 potassium 4.4 creatinine 0.6 White count 6.9 hemoglobin 11.7 platelets 191 potassium 4.4 BUN 22 creatinine 0.8 albumin 3.4 Previous testing: Potassium 5.2 BUN 35 creatinine 2.88-on May 09 Assessment: -Postop ileus-new diagnosis -Low anterior resection for recurrent episodes of diverticulitis-passed flatus today -Acute kidney injury possibly ATN, now improved -Hyperkalemia from acute kidney injury, improved -Essential hypertension-uncontrolled -Patient has an epidural for pain control Plan: We will make the patient nothing by mouth until [facility]. Continue with medications. Increase increase activity as tolerated. May require an enema. Thank you Dr. Garcia
[2020-05-14] MEDS: LACTATED RINGERS 1,000 ML IV SCH ×5 (05:27→11:29)
[2020-05-14] MEDS: HYDROcodone/APAP 5-325MG 1 EACH TAB PO PRN (06:55)
[2020-05-14] MEDS: HEPARIN SODIUM,PORCINE 5,000 UNIT/ML 1 ML VIAL SQ SCH ×2 (08:03→20:02)
[2020-05-14] MEDS ORDERED: traMADol 50 MG TAB PO PRN (09:06)
[2020-05-14] MEDS: HYDROmorphone 1 MG/ML 1 ML SYRINGE IVP PRN ×3 (09:38→20:07)
[2020-05-14 10:48] LABS: Basophils # (A) 0.1 k/uL (0-0.2); Basophils % (A) 1 %; Eosinophils # (A) 0.5 k/uL (0-0.7); Eosinophils % (A) 5 %; Lymphocytes # (A) 1.3 k/uL (1.0-4.8); Lymphocytes % (A) 13 %; MCH 29.4 pg (25.0-35.0); MCHC 34.7 g/dL (31.0-37.0); MCV 84.5 fL (80.0-100.0); Mean Platelet Volume 6.6; Monocytes # (A) 0.6 k/uL (0-1.0); Monocytes % (A) 6 %; Neutrophils # (A) 7.3 k/uL (1.3-7.7); Neutrophils % (A) 73 %; Platelet Count 337 k/uL (150-450); RBC 5.09 m/uL (3.80-5.40); RDW 13.3 % (11.5-15.5); WBC 9.9 k/uL (3.8-10.6)
[2020-05-14 11:10] LABS: ALT 47 U/L (4-34); AST 40 U/L (14-36); African American GFR (CKD) >90 (>60 ml/min/1.73 sqM); Albumin 3.5 g/dL (3.5-5.0); Albumin/Globulin Ratio 1.3; Alkaline Phosphatase 65 U/L (38-126); Anion Gap 6 mmol/L; Blood Urea Nitrogen 12 mg/dL (7-17); Calcium 9.2 mg/dL (8.4-10.2); Carbon Dioxide 34 mmol/L (22-30); Chloride 98 mmol/L (98-107); Globulin 2.6 g/dL; Glucose 122 mg/dL (74-99); Non-African American GFR(CKD) >90 (>60 ml/min/1.73 sqM); Potassium 3.4 mmol/L (3.5-5.1); Sodium 138 mmol/L (137-145); Total Bilirubin 0.6 mg/dL (0.2-1.3); Total Protein 6.1 g/dL (6.3-8.2)
[2020-05-14 11:16] LABS: HGB 14.9 gm/dL (11.4-16.0)
[2020-05-14] MEDS: LOSARTAN 25 MG TAB PO SCH (11:37)
[2020-05-14] MEDS: METOCLOPRAMIDE 5 MG/ML 2 ML VIAL IVP SCH ×2 (11:37→17:07)
[2020-05-14] MEDS ORDERED: POTASSIUM CHLORIDE ER 20 MEQ TAB.ER PO STA (14:06)
--- NOTE | 2020-05-14 14:10 | P.PN ---
Subjective Progress Note Date: 05/14/20 CHIEF COMPLAINT: History of diverticulitis HISTORY OF PRESENT ILLNESS: Patient is status post lower anterior resection, POD#6. Patient reporting abdominal pain at the incision site. She still has not had a bowel movement or passed gas. Abdominal x-ray had showed evidence of a postop ileus. She has been having episodes of tachycardia heart rate is high as 115. She can feel her heart racing. She denies any chest pain or shortness of breath. She does complain of nausea. She also reports that the [place] makes her feel worse. afebrile. WBC 9.9 hemoglobin 14.9 potassium 3.4 PHYSICAL EXAM: VITAL SIGNS: Reviewed. GENERAL: Well-developed in no acute distress. HEENT: No sclera icterus. Extraocular movements grossly intact. Moist buccal mucosa. Head is atraumatic, normocephalic. ABDOMEN: Soft. Mildly distended. dressing clean dry and intact NEUROLOGIC: Alert and oriented. Cranial nerves II through XII grossly intact. ASSESSMENT: 1. Diverticulitis status post lower anterior resection 2. Postop ileus 3. Acute kidney injury likely secondary to dehydration from not enough IV fluid s. Resolved PLAN: -give patient 1 L fluid bolus of lactated Ringer or tachycardia and nausea -Continue full liquid diet -continue Dilaudid as needed for pain. Will add Tylenol with codeine and dis continue [place] -add Reglan 10 mg IV every 6 -Check EKG and place patient on cardiac monitoring in regards to her tachycardia -replace patient's potassium -Continue incentive spirometer use and encouraged patient to ambulate -GI prophylaxis Protonix and DVT prophylaxis subcu heparin Physician Pearl Technician note has been reviewed by physician. Signing provider agrees with the documented findings, assessment, and plan of care. Objective - Vital Signs Vital signs: Vital Signs Temp 97.4 F L 05/14/20 07:59 Pulse 102 H 05/14/20 08:00 Resp 18 05/14/20 08:00 BP 122/88 05/14/20 07:59 Pulse Ox 93 L 05/14/20 07:59 Intake & Output 05/13/20 05/14/20 05/14/20 18:59 06:59 18:59 Output Total 2500 Balance -2500 Output: Urine 2500 Other: Voiding Method Toilet # Voids 3 2 2 # Bowel Movements 0 - Labs CBC & Chem 7: 05/14/20 10:27 05/14/20 10:27 Labs: Abnormal Lab Results - Last 24 Hours (Table) 05/14/20 Range/Units 10:27 Potassium 3.4 L (3.5-5.1) mmol/L Carbon Dioxide 34 H (22-30) mmol/L Glucose 122 H (74-99) mg/dL AST 40 H (14-36) U/L ALT 47 H (4-34) U/L Total Protein 6.1 L (6.3-8.2) g/dL
--- NOTE | 2020-05-14 21:27 | P.PN ---
Progress Note - Text Progress Note Date: 05/14/20 - Chief Complaint Abdominal pain Consultation: This is a pleasant 49-year-old patient of Dr. cotton. Patient's had in the past at least 3 or 4 bouts of diverticulitis. Patient now has undergone low anterior resection. Has epidural in place. patient developed ileus. Today-sulfa the patient this morning. Has developed ileus. Awaiting further directions from surgery. IV fluids. No flatus or BM. No nausea vomiting. Review of systems: Was done for constitutional, cardiovascular, GI, pulmonary. relevant finding as above Active Medications Acetaminophen/Codeine Phosphate (Acetaminophen-Codeine 300-30mg Tab) 1 each PO Q6HR PRN PRN Reason: Pain Heparin Sodium (Porcine) (Heparin Sodium,Porcine 5,000 Unit/Ml 1 Ml Vial) 5,000 unit SQ Q12HR [facility] Last Admin: 05/14/20 20:02 Dose: Not Given Documented by: Hydromorphone HCl (Hydromorphone 1 Mg/Ml 1 Ml Syringe) 1 mg IVP Q3HR PRN PRN Reason: Pain Last Admin: 05/14/20 20:07 Dose: 1 mg Documented by: Lactated Ringer's (Lactated Ringers) 1,000 mls @ 20 mls/hr IV .Q24H [facility] Last Admin: 05/14/20 09:39 Dose: 20 mls/hr Documented by: Ropivacaine 500 mg/Hydromorphone HCl 5 mg/ Sodium Chloride 250 mls @ 0 mls/hr EPIDURAL .Q0M PRN; Protocol PRN Reason: Pain Control Last Admin: 05/08/20 16:32 Dose: 0 mls Documented by: Lidocaine HCl (Lidocaine 1% (10mg/Ml) For Iv Start) 0.1 ml INTRADERMA PER PROTOCOL PRN PRN Reason: IV Start Last Admin: 05/08/20 10:52 Dose: 0.1 ml Documented by: Losartan Potassium (Losartan 25 Mg Tab) 25 mg PO 1100 [facility] Last Admin: 05/14/20 11:37 Dose: 25 mg Documented by: Metoclopramide HCl (Metoclopramide 5 Mg/Ml 2 Ml Vial) 10 mg IVP Q6HR [facility] Last Admin: 05/14/20 17:07 Dose: 10 mg Documented by: Naloxone HCl (Naloxone 0.4 Mg/Ml 1 Ml Vial) 0.2 mg IV Q2M PRN PRN Reason: Opioid Reversal Ondansetron HCl (Ondansetron 4 Mg/2 Ml Vial) 4 mg IVP Q6HR PRN PRN Reason: Nausea And Vomiting Last Admin: 05/13/20 21:18 Dose: 4 mg Documented by: Past medical history to include: Recurrent bouts of diverticulitis, hypertension, vertebral arthritis, Social history: Lives alone. No alcohol. Patient smoked a pack a day for 15 years stopped 22 years ago. Physical examination: VITAL SIGNS:97.4, 98, 18, 122/88, 93% room air GENERAL: BMI 37.8, laying in bed, comfortable EYES: Pupils equal. Conjunctiva normal. HEENT: External appearance of nose and ears normal, oral cavity grossly normal. NECK: JVD not raised; masses not palpable. HEART: First and second heart sounds are normal; no edema. LUNGS: Respiratory rate normal; clear to auscultation. ABDOMEN: Soft, some tenderness, some distention, dressing over the incision site, bowel sounds present, liver spleen not palpable, no masses palpable. PSYCH: Alert and oriented x3; mood and affect normal. INVESTIGATIONS, reviewed in the clinical context: May 14: White count 9.9 potassium 3.4 creatinine 0.7 to May 13: Potassium 3.6 creatinine 0.6 Abdominal x-ray personally reviewed by me shows-dilatations of note May 11: Recurrent 7 hemoglobin 11.8 potassium 4.4 creatinine 0.6 White count 6.9 hemoglobin 11.7 platelets 191 potassium 4.4 BUN 22 creatinine 0.8 albumin 3.4 Previous testing: Potassium 5.2 BUN 35 creatinine 2.88-on May 09 Assessment: -Postop ileus-slow to respond -Low anterior resection for recurrent episodes of diverticulitis-passed flatus today -Acute kidney injury possibly ATN, now improved -Hyperkalemia from acute kidney injury, improved -Essential hypertension-uncontrolled Plan: diet at the surgery. He'll benefit from a suppository. Other medications to continue. IV fluids. Thank you Dr. Garcia
[2020-05-15] MEDS: HYDROmorphone 1 MG/ML 1 ML SYRINGE IVP PRN ×3 (01:12→11:14)
[2020-05-15] MEDS: METOCLOPRAMIDE 5 MG/ML 2 ML VIAL IVP SCH ×5 (01:13→23:51)
[2020-05-15 06:04] LABS: Basophils % (A) 0 %; Eosinophils # (A) 0.4 k/uL (0-0.7); Eosinophils % (A) 5 %; HCT 38.8 % (34.0-46.0); HGB 13.3 gm/dL (11.4-16.0); Lymphocytes # (A) 1.3 k/uL (1.0-4.8); Lymphocytes % (A) 15 %; MCHC 34.3 g/dL (31.0-37.0); MCV 84.7 fL (80.0-100.0); Mean Platelet Volume 6.6; Monocytes # (A) 0.6 k/uL (0-1.0); Monocytes % (A) 7 %; Neutrophils # (A) 6.6 k/uL (1.3-7.7); Neutrophils % (A) 72 %; Platelet Count 301 k/uL (150-450); RBC 4.58 m/uL (3.80-5.40); RDW 13.1 % (11.5-15.5); WBC 9.1 k/uL (3.8-10.6)
[2020-05-15] MEDS: HEPARIN SODIUM,PORCINE 5,000 UNIT/ML 1 ML VIAL SQ SCH ×2 (07:20→21:21)
[2020-05-15] MEDS: Acetaminophen-Codeine 300-30mg TAB PO PRN ×3 (08:35→21:59)
[2020-05-15 10:08] LABS: African American GFR (CKD) 99.6 (60.0-200.0); Albumin 3.5 g/dL (3.80-4.90); Albumin/Globulin Ratio 2.06 (1.60-3.17); Anion Gap 7.5 mmol/L (4.00-12.00); Calcium 8.9 mg/dL (8.7-10.3); Carbon Dioxide 33.5 mmol/L (21.6-31.8); Globulin 1.7 g/dL (1.6-3.3); Potassium 3.6 mmol/L (3.5-5.5); Total Bilirubin 0.5 mg/dL (0.2-1.2); Total Protein 5.2 g/dL (6.2-8.2)
[2020-05-15] MEDS: LOSARTAN 25 MG TAB PO SCH (11:14)
--- NOTE | 2020-05-15 13:42 | P.PN ---
Subjective Progress Note Date: 05/15/20 CHIEF COMPLAINT: History of diverticulitis HISTORY OF PRESENT ILLNESS: Patient is status post lower anterior resection, POD#7. Patient reports that she is feeling better today. She did have a bowel movement and is passing gas. Her nausea is resolved. She is currently on a full liquid diet. She reports better pain control. She had used the IV Dilaudid throughout the day yesterday. She has been up and ambulating. Her tachycardia has improved. Her EKG from yesterday had shown sinus tachycardia heart rate of 110. She is no longer having that racing heart sensation. She did receive a fluid bolus yesterday as well. Afebrile. WBC 9.1 potassium 3.6 PHYSICAL EXAM: VITAL SIGNS: Reviewed. GENERAL: Well-developed in no acute distress. HEENT: No sclera icterus. Extraocular movements grossly intact. Moist buccal mucosa. Head is atraumatic, normocephalic. ABDOMEN: Soft. Mildly distended. dressing clean dry and intact NEUROLOGIC: Alert and oriented. Cranial nerves II through XII grossly intact. ASSESSMENT: 1. Diverticulitis status post lower anterior resection 2. Postop ileus 3. Acute kidney injury likely secondary to dehydration from not enough IV fluids. Resolved PLAN: -Advance diet to regular -Continue Pain medication as needed -Continue incentive spirometer use and encouraged patient to ambulate -GI prophylaxis Protonix and DVT prophylaxis subcu heparin Physician Library Sales Consultant note has been reviewed by physician. Signing provider agrees with the documented findings, assessment, and plan of care. Objective - Vital Signs Vital signs: Vital Signs Temp 98.1 F 05/15/20 07:43 Pulse 94 05/15/20 11:12 Resp 17 05/15/20 11:12 BP 116/76 05/15/20 11:12 Pulse Ox 98 05/15/20 11:12 Intake & Output 05/14/20 05/15/20 05/15/20 18:59 06:59 18:59 Output Total 2500 Balance -2500 Output: Urine 2500 Other: Voiding Method Toilet Toilet # Voids 3 3 # Bowel Movements 0 1 - Labs CBC & Chem 7: 05/15/20 05:23 05/15/20 05:23 Labs: Abnormal Lab Results - Last 24 Hours (Table) 05/15/20 Range/Units 05:23 Carbon Dioxide 33.5 H (21.6-31.8) mmol/L Glucose 111 H (70-110) mg/dL AST 110 H (13-35) U/L ALT 132 H (8-44) U/L Total Protein 5.2 L (6.2-8.2) g/dL Albumin 3.50 L (3.80-4.90) g/dL
[2020-05-15 15:33] VITALS: BMI 37.8
--- NOTE | 2020-05-15 23:42 | P.PN ---
Progress Note - Text Progress Note Date: 05/15/20 - Chief Complaint Abdominal pain Consultation: This is a pleasant 49-year-old patient of Dr. cotton. Patient's had in the past at least 3 or 4 bouts of diverticulitis. Patient now has undergone low anterior resection. Has epidural in place. patient developed ileus. Today-patient passed some loose stool. Some flatus. On liquid diet. Diet being advanced as per surgery. Patient has been out of bed. Review of systems: Was done for constitutional, cardiovascular, GI, pulmonary. relevant finding as above Active Medications Acetaminophen/Codeine Phosphate (Acetaminophen-Codeine 300-30mg Tab) 1 each PO Q6HR PRN PRN Reason: Pain Last Admin: 05/15/20 21:59 Dose: 1 each Documented by: Heparin Sodium (Porcine) (Heparin Sodium,Porcine 5,000 Unit/Ml 1 Ml Vial) 5,000 unit SQ Q12HR RODNEY Last Admin: 05/15/20 21:21 Dose: Not Given Documented by: Hydromorphone HCl (Hydromorphone 1 Mg/Ml 1 Ml Syringe) 1 mg IVP Q3HR PRN PRN Reason: Pain Last Admin: 05/15/20 11:14 Dose: 1 mg Documented by: Lactated Ringer's (Lactated Ringers) 1,000 mls @ 20 mls/hr IV .Q24H RODNEY Last Admin: 05/14/20 09:39 Dose: 20 mls/hr Documented by: Ropivacaine 500 mg/Hydromorphone HCl 5 mg/ Sodium Chloride 250 mls @ 0 mls/hr EPIDURAL .Q0M PRN; Protocol PRN Reason: Pain Control Last Admin: 05/08/20 16:32 Dose: 0 mls Documented by: Lidocaine HCl (Lidocaine 1% (10mg/Ml) For Iv Start) 0.1 ml INTRADERMA PER PROTOCOL PRN PRN Reason: IV Start Last Admin: 05/08/20 10:52 Dose: 0.1 ml Documented by: Losartan Potassium (Losartan 25 Mg Tab) 25 mg PO 1100 [facility] Last Admin: 05/15/20 11:14 Dose: 25 mg Documented by: Metoclopramide HCl (Metoclopramide 5 Mg/Ml 2 Ml Vial) 10 mg IVP Q6HR RODNEY Last Admin: 05/15/20 18:16 Dose: 10 mg Documented by: Naloxone HCl (Naloxone 0.4 Mg/Ml 1 Ml Vial) 0.2 mg IV Q2M PRN PRN Reason: Opioid Reversal Ondansetron HCl (Ondansetron 4 Mg/2 Ml Vial) 4 mg IVP Q6HR PRN PRN Reason: Nausea And Vomiting Last Admin: 05/13/20 21:18 Dose: 4 mg Documented by: Past medical history to include: Recurrent bouts of diverticulitis, hypertension, vertebral arthritis, Social history: Lives alone. No alcohol. Patient smoked a pack a day for 15 years stopped 22 years ago. Physical examination: VITAL SIGNS: 98.1, 94, 17, 115/72, 90% on room air GENERAL: BMI 37.8, laying in bed, comfortable EYES: Pupils equal. Conjunctiva normal. HEENT: External appearance of nose and ears normal, oral cavity grossly normal. NECK: JVD not raised; masses not palpable. HEART: First and second heart sounds are normal; no edema. LUNGS: Respiratory rate normal; clear to auscultation. ABDOMEN: Soft, some tenderness, minimal distention, dressing over the incision site, bowel sounds present, liver spleen not palpable, no masses palpable. PSYCH: Alert and oriented x3; mood and affect normal. INVESTIGATIONS, reviewed in the clinical context: Gen. he : White count 9.1 hemoglobin 13.3 potassium 3.6 creatinine 0.8 AST 110 ALT 132 May 14: White count 9.9 potassium 3.4 creatinine 0.7 to May 13: Potassium 3.6 creatinine 0.6 Abdominal x-ray personally reviewed by me shows-dilatations of note May 11: Recurrent 7 hemoglobin 11.8 potassium 4.4 creatinine 0.6 White count 6.9 hemoglobin 11.7 platelets 191 potassium 4.4 BUN 22 creatinine 0.8 albumin 3.4 Previous testing: Potassium 5.2 BUN 35 creatinine 2.88-on May 09 Assessment: -Postop ileus-slow to respond -Low anterior resection for recurrent episodes of diverticulitis-passed flatus today -Acute kidney injury possibly ATN, now improved -Hyperkalemia from acute kidney injury, improved -Essential hypertension-uncontrolled Plan: Note does increase in patient's LFT. Not very significant. We'll repeat the same tomorrow morning. Encouraged to ambulate. Thank you Dr. Garcia
[2020-05-16] MEDS: LACTATED RINGERS 1,000 ML IV SCH (02:59)
[2020-05-16] MEDS: METOCLOPRAMIDE 5 MG/ML 2 ML VIAL IVP SCH ×2 (05:48→12:11)
[2020-05-16] MEDS: HYDROmorphone 1 MG/ML 1 ML SYRINGE IVP PRN (07:20)
[2020-05-16] MEDS ORDERED: IBUPROFEN 600 MG TAB PO PRN (09:12)
[2020-05-16] MEDS: HEPARIN SODIUM,PORCINE 5,000 UNIT/ML 1 ML VIAL SQ SCH (09:30)
[2020-05-16 10:47] LABS: African American GFR (CKD) 99.6 (60.0-200.0); Albumin 3.9 g/dL (3.80-4.90); Albumin/Globulin Ratio 2.05 (1.60-3.17); Anion Gap 11.2 mmol/L (4.00-12.00); BUN/Creat Ratio 11.25 Ratio (12.00-20.00); Calcium 9.2 mg/dL (8.7-10.3); Carbon Dioxide 29.8 mmol/L (21.6-31.8); Globulin 1.9 g/dL (1.6-3.3); Total Bilirubin 0.5 mg/dL (0.2-1.2); Total Protein 5.8 g/dL (6.2-8.2)
[2020-05-16] MEDS: LOSARTAN 25 MG TAB PO SCH (12:10)
[2020-05-16] MEDS: Acetaminophen-Codeine 300-30mg TAB PO PRN (12:19)
[2020-05-16 13:51] VITALS: BP 100/66; PULSE 98; RESP 16; TEMP 98.2
--- NOTE | 2020-05-16 14:11 | P.DS ---
Providers Date of admission: 05/08/20 09:57 Expected date of discharge: 05/16/20 Attending physician: Darinel Garcia Consults: 05/09/20 13:53 Consult Physician Routine Consulting Provider: Abner Moran Consult Reason/Comments: medical management Do you want consulting provider notified?: Yes Primary care physician: Tyler Andrade Hospital Course: Discharge diagnosis 1. History of Diverticulitis status post lower anterior resection 2. Postop ileus resolved 3. Acute kidney injury likely secondary to dehydration from not enough IV fluids. Resolved Hospital course This is a 49-year-old female with a known history of diverticulitis she is status post lower anterior resection. She is tolerating diet. Her pain is controlled. She is having bowel movements and flatus. She is afebrile. She is up and ambulating. She is stable for discharge. Physician Snuff Grinder note has been reviewed by physician. Signing provider agrees with the documented findings, assessment, and plan of care. Patient Condition at Discharge: Stable Plan - Discharge Summary Discharge Rx Participant: Yes New Discharge Prescriptions: New Docusate [Colace] 100 mg PO BID #30 capsule Ibuprofen [Motrin] 600 mg PO Q8HR PRN #30 tab PRN Reason: Pain Acetaminophen-Codeine 300-30mg [Tylenol w/codeine #3] 1 each PO Q6HR PRN #12 tab PRN Reason: Pain Continue Losartan [Cozaar] 25 mg PO 1100 Discharge Medication List Losartan [Cozaar] 25 mg PO 1100 04/18/19 [History] Acetaminophen-Codeine 300-30mg [Tylenol w/codeine #3] 1 each PO Q6HR PRN #12 tab 05/16/20 [Rx] Docusate [Colace] 100 mg PO BID #30 capsule 05/16/20 [Rx] Ibuprofen [Motrin] 600 mg PO Q8HR PRN #30 tab 05/16/20 [Rx] Follow up Appointment(s)/Referral(s): Darinel Garcia MD [STAFF PHYSICIAN] - 1 Week Activity/Diet/Wound Care/Special Instructions: No driving while taking Tylenol #3 No lifting over 10 pounds You may shower. No soaking or tub baths for 2 weeks Very light activity until you are reevaluated at your follow up appointment with your surgeon Diet Regular Discharge Disposition: HOME SELF-CARE
--- NOTE | 2020-05-16 23:49 | P.PN ---
Progress Note - Text Progress Note Date: 05/16/20 - Chief Complaint Abdominal pain Consultation: This is a pleasant 49-year-old patient of Dr. cotton. Patient's had in the past at least 3 or 4 bouts of diverticulitis. Patient now has undergone low anterior resection. Has epidural in place. patient developed ileus. Today-saw the patient this morning. no bowel movement or flatus since yesterday. Some of down pain. No nausea vomiting. Starting a diet. Has been up and about. Review of systems: Was done for constitutional, cardiovascular, GI, pulmonary. relevant finding as above Current medications reviewed in today's electronic records Past medical history to include: Recurrent bouts of diverticulitis, hypertension, vertebral arthritis, Social history: Lives alone. No alcohol. Patient smoked a pack a day for 15 years stopped 22 years ago. Physical examination: VITAL SIGNS: 98.5, 105, 16, 111/76, 93% room air GENERAL: BMI 37.8, laying in bed, comfortable EYES: Pupils equal. Conjunctiva normal. HEENT: External appearance of nose and ears normal, oral cavity grossly normal. NECK: JVD not raised; masses not palpable. HEART: First and second heart sounds are normal; no edema. LUNGS: Respiratory rate normal; clear to auscultation. ABDOMEN: Soft, some tenderness, minimal distention, dressing over the incision site, bowel sounds present, liver spleen not palpable, no masses palpable. PSYCH: Alert and oriented x3; mood and affect normal. INVESTIGATIONS, reviewed in the clinical context: May 16: Potassium 4 creatinine 0.8 AST 97 ALT 160 alk phos 144 May 15: White count 9.1 hemoglobin 13.3 potassium 3.6 creatinine 0.8 AST 110 ALT 132 May 14: White count 9.9 potassium 3.4 creatinine 0.7 to May 13: Potassium 3.6 creatinine 0.6 Abdominal x-ray personally reviewed by me shows-dilatations of note May 11: Recurrent 7 hemoglobin 11.8 potassium 4.4 creatinine 0.6 White count 6.9 hemoglobin 11.7 platelets 191 potassium 4.4 BUN 22 creatinine 0.8 albumin 3.4 Previous testing: Potassium 5.2 BUN 35 creatinine 2.88-on May 09 Assessment: -Postop ileus-slow to respond -Low anterior resection for recurrent episodes of diverticulitis-passed flatus today -Acute kidney injury possibly ATN, now improved -Hyperkalemia from acute kidney injury, improved -Essential hypertension- -Some elevation of liver enzymes. Plan: Gen. surgery was made aware of elevation of liver enzymes. Other medications to continue. Diet to be advanced as per surgery. We'll follow. Thank you Dr. Garcia
--- NOTE | 2020-05-29 16:36 | P.GSHP ---
History of Present Illness H&P Date: 05/09/20 Chief Complaint: Diverticulitis This a 49-year-old female who's had chronic issues of diverticula is. Patient presents today for low anterior section. Patient was reversed surgery including possible colostomy, bleeding and infection. Past Medical History Past Medical History: Hypertension, Pneumonia, Rheumatoid Arthritis (RA) Additional Past Medical History / Comment(s): Diverticulitis, small hiatal herni a, protein in urine History of Any Multi-Drug Resistant Organisms: None Reported Past Surgical History: Section, Cholecystectomy, Hysterectomy, Orthopedic Surgery, Tonsillectomy Additional Past Surgical History / Comment(s): L shoulder rotator cuff repair. abdominal adhesion surgery , sinus surgery Past Anesthesia/Blood Transfusion Reactions: Motion Sickness, Postoperative Nausea & Vomiting (PONV) Smoking Status: Former smoker - Past Family History Mother Family Medical History: Myocardial Infarction ([place]) Father Family Medical History: Cancer Additional Family Medical History / Comment(s): Lung Medications and Allergies Home Medications Medication Instructions Recorded Confirmed Type Losartan [Cozaar] 25 mg PO DAILY@1100 04/18/19 05/24/20 History Cephalexin [Keflex] 500 mg PO Q6HR #40 cap 05/23/20 05/24/20 Rx Sulfamethox-Tmp 800-160Mg [Bactrim 1 each PO Q12HR #20 tab 05/24/20 Rx Ds] Allergies Allergy/AdvReac Type Severity Reaction Status Date / Time amoxicillin Allergy Anaphylaxis Verified 05/24/20 10:29 azithromycin Allergy Rash/Hives Verified 05/24/20 10:29 [From Zithromax Z-Jhonathan] ciprofloxacin Allergy Anaphylaxis Verified 05/24/20 10:29 Penicillins Allergy Anaphylaxis Verified 05/24/20 10:29 tetracycline Allergy Anaphylaxis Verified 05/24/20 10:29 Surgical - Exam Vital Signs Temp Pulse Resp BP Pulse Ox 98.1 F 77 16 141/88 96 05/08/20 10:49 05/08/20 10:49 05/08/20 10:49 05/08/20 10:49 05/08/20 10:49 - General well developed, well nourished, no distress - Eyes PERRL - ENT normal pinna, normal nares - Neck no masses - Respiratory normal expansion - Cardiovascular Rhythm: regular - Abdomen Tender left lower quadrant Abdomen: soft Results - Labs 05/15/20 05:23 05/16/20 06:28 Assessment and Plan Assessment: History of chronic diverticulitis. Patient will undergo low anterior resection.
--- NOTE | 2020-05-29 16:40 | P.OP ---
Date of Procedure: 05/09/20 Preoperative Diagnosis: Diverticulitis Postoperative Diagnosis: Diverticulitis Procedure(s) Performed: Low anterior resection Lysis of adhesions Partial omentectomy Anesthesia: DANIEL Surgeon: Darinel Garcia Estimated Blood Loss (ml): 25 Pathology: other (Segment colon, omentum) Condition: stable Disposition: PACU Description of Procedure: DESCRIPTION OF PROCEDURE: The patient's placed on the operating table in supine position. She was then received general anesthesia. She was then placed in dorsal lithotomy position. Her abdomen was prepped and draped usual fashion. A low midline incision was made. And is using left cautery and subcutaneous tissues and double wall were divided midline. The Bookwalter tract with wound. The descending and; exposed. There were adhesions in the pelvis. These were lysed with sharp dissection. The small bowel was then withdrawn from the pelvis. The patient appeared to have diverticulitis of the sigmoid colon. The sigmoid colon was mobilized by dividing the peritoneal attachments. And then the left colon was mobilized by dividing the white line of Toldt. An enterotomy is made into the sigmoid colon and the antrum was were 25 mm EEA stapler was placed into the sigmoid colon and then into the left colon and in the staple there was used to transect the colon. The enterotomy was then closed with 3-0 GI silk suture. The spike for the staple anvil was then brought out through the staple line. The; was then dissected free by dividing the mesentery with the Enseal device. The rectum was then transected with the TA stapler. Next using the EEA stapler the colorectal anastomosis created. The EEA stapler general office assistant into the patient's rectum the spike was driven through the anterior rectal wall. The end was cut to the stapler. The anvil and stapler were then closed. Anurag are fired. And withdrawn. 2 intact tissue rings were withdrawn. The anastomosis was then checked under air insufflation by using a hydrophilic email manager to include the bowel. No evidence of leakage was seen at the anastomosis. At this point the abdomen was irrigated there is no bleeding seen. A portion of the omentum appeared nonviable this was transected with the insulation sent to pathology. The fascia then closed with looped #1 PDS suture. Skin was closed anurag. Patient top she will was sent to recovery room in stable condition.
== END 2020-05-16 15:40 | disposition home or self-care (01) | DRG 329 ==
LOC: 2ORMAIN 09:57 → 5NMEDONC 15:35
PROVIDERS: ADMIT Surgery; ATTEND Surgery
PROC: 0DBU0ZZ Excision of Omentum, Open Approach (ICD-10-PCS; principal; 2020-05-09)
PROC: 0DTN0ZZ Resection of Sigmoid Colon, Open Approach (ICD-10-PCS; principal; 2020-05-09)
PROC: 0DNW0ZZ Release Peritoneum, Open Approach (ICD-10-PCS; principal; 2020-05-09)
DX: K57.32 Diverticulitis of large intestine without perforation or abscess without bleeding (principal); N17.0 Acute kidney failure with tubular necrosis; K56.7 Ileus, unspecified; E87.5 Hyperkalemia; I10 Essential (primary) hypertension; E86.0 Dehydration; Z60.2 Problems related to living alone; M06.9 Rheumatoid arthritis, unspecified; Z90.710 Acquired absence of both cervix and uterus; Z87.891 Personal history of nicotine dependence; Z82.49 Family history of ischemic heart disease and other diseases of the circulatory system; Z88.1 Allergy status to other antibiotic agents; Z88.0 Allergy status to penicillin; Z80.1 Family history of malignant neoplasm of trachea, bronchus and lung; Z90.49 Acquired absence of other specified parts of digestive tract; Z90.89 Acquired absence of other organs; Z98.891 History of uterine scar from previous surgery; Z98.890 Other specified postprocedural states
CPT/HCPCS: 36415; 74019; 80048; 80053; 85025; 86850; 86870; 86880; 86900; 86901; 88307; 94760

== ENCOUNTER 2020-05-23 18:44 | Emergency (ER) | payer MEDICARE, OTHER ==
[2020-05-23 19:02] VITALS: RESP 16; TEMP 98.9
[2020-05-23 19:49] LABS: Basophils # (A) 0.1 k/uL (0-0.2); Basophils % (A) 1 %; Eosinophils # (A) 0.3 k/uL (0-0.7); Eosinophils % (A) 2 %; HGB 14.3 gm/dL (11.4-16.0); Lymphocytes # (A) 1.8 k/uL (1.0-4.8); Lymphocytes % (A) 13 %; MCH 28.6 pg (25.0-35.0); MCHC 34.1 g/dL (31.0-37.0); MCV 83.9 fL (80.0-100.0); Mean Platelet Volume 6.5; Monocytes # (A) 0.8 k/uL (0-1.0); Monocytes % (A) 6 %; Neutrophils # (A) 10.7 k/uL (1.3-7.7); Neutrophils % (A) 78 %; Platelet Count 505 k/uL (150-450); RBC 5.01 m/uL (3.80-5.40); RDW 13.1 % (11.5-15.5); WBC 13.8 k/uL (3.8-10.6)
[2020-05-23 20:07] LABS: ALT 32 U/L (4-34); AST 29 U/L (14-36); African American GFR (CKD) >90 (>60 ml/min/1.73 sqM); Albumin 3.8 g/dL (3.5-5.0); Alkaline Phosphatase 105 U/L (38-126); Anion Gap 8 mmol/L; Blood Urea Nitrogen 20 mg/dL (7-17); Carbon Dioxide 23 mmol/L (22-30); Chloride 105 mmol/L (98-107); Glucose 129 mg/dL (74-99); Non-African American GFR(CKD) >90 (>60 ml/min/1.73 sqM); Potassium 4.4 mmol/L (3.5-5.1); Sodium 136 mmol/L (137-145); Total Bilirubin 0.7 mg/dL (0.2-1.3)
--- NOTE | 2020-05-23 20:50 | ED ---
General Adult HPI - General Chief complaint: Skin/Abscess/Foreign Body Stated complaint: Hemorrhage Time Seen by Provider: 05/23/20 19:19 Source: patient Mode of arrival: EMS Limitations: no limitations - History of Present Illness Initial comments: 49-year-old female patient presents to the emergency department today for evaluation of drainage from abdominal incision. Patient is postop day #15 after having bowel resection for diverticulitis with Dr. Garcia. She states she was seen at the office earlier today and had anurag removed. States that when she arrived home she fell whiteness over the front of her clothing and realized that the incision was draining. States that there was bloody, purulent, and clear fluid draining from the incision site. When patient arrived the front of her clothes shirt and pants were soaked with fluid. Patient denies any pain to the abdomen or incision. Denies fever or chills. States that she has been healing well and doing well. Patient denies any recent rash, cough, shortness of breath, chest pain, nausea, vomiting, diarrhea, constipation, back pain, numbness, tingling, dizziness, weakness, hematuria, dysuria, urinary urgency, urinary frequency, headache, visual changes, or any other complaints. - Related Data Home Medications Medication Instructions Recorded Confirmed Losartan [Cozaar] 25 mg PO DAILY@1100 04/18/19 05/23/20 Previous Rx's Medication Instructions Recorded Cephalexin [Keflex] 500 mg PO Q6HR #40 cap 05/23/20 Allergies Allergy/AdvReac Type Severity Reaction Status Date / Time amoxicillin Allergy Anaphylaxis Verified 05/23/20 20:12 azithromycin Allergy Rash/Hives Verified 05/23/20 20:12 [From Zithromax Z-Jhonathan] ciprofloxacin Allergy Anaphylaxis Verified 05/23/20 20:12 Penicillins Allergy Anaphylaxis Verified 05/23/20 20:12 tetracycline Allergy Anaphylaxis Verified 05/23/20 20:12 Review of Systems ROS Statement: Those systems with pertinent positive or pertinent negative responses have been documented in the HPI. ROS Other: All systems not noted in ROS Statement are negative. Past Medical History Past Medical History: Hypertension, Pneumonia, Rheumatoid Arthritis (RA) Additional Past Medical History / Comment(s): Diverticulitis, small hiatal hernia, protein in urine History of Any Multi-Drug Resistant Organisms: None Reported Past Surgical History: Bowel Resection, Section, Cholecystectomy, Hysterectomy, Orthopedic Surgery, Tonsillectomy Additional Past Surgical History / Comment(s): L shoulder rotator cuff repair. abdominal adhesion surgery , sinus surgery, partial bowel resection Past Anesthesia/Blood Transfusion Reactions: Motion Sickness, Postoperative Nausea & Vomiting (PONV) Past Psychological History: No Psychological Hx Reported Smoking Status: Former smoker Past Alcohol Use History: None Reported Past Drug Use History: None Reported - Past Family History Mother Family Medical History: Myocardial Infarction ([place]) Father Family Medical History: Cancer Additional Family Medical History / Comment(s): Lung General Exam Limitations: no limitations General appearance: alert, in no apparent distress, other (This is a well- developed, well-nourished adult female patient in no acute distress. Vital signs upon presentation are temperature 98.9F, pulse 114, respiration 16, blood pressure 114/81, pulse ox 99% on room air.) Eye exam: Present: normal appearance, PERRL, EOMI. Absent: scleral icterus, conjunctival injection, periorbital swelling ENT exam: Present: normal exam, normal oropharynx, mucous membranes moist Respiratory exam: Present: normal lung sounds bilaterally. Absent: respiratory distress, wheezes, rales, rhonchi, stridor Cardiovascular Exam: Present: regular rate, normal rhythm, normal heart sounds. Absent: systolic murmur, diastolic murmur, rubs, gallop, clicks GI/Abdominal exam: Present: soft, normal bowel sounds, other (There is midline incision noted over the lower abdmen. There is one staple near the umbilicus and 3 anurag to the distal incision. Above the lower anurag is a superficial dehiscence. Mild drainage noted. No surrounding erythema or tenderness. ). Absent: distended, tenderness, guarding, rebound, rigid Neurological exam: Present: alert, oriented X3, CN II-XII intact Psychiatric exam: Present: normal affect, normal mood Skin exam: Present: warm, dry, intact, normal color. Absent: rash Course Vital Signs 05/23/20 18:56 Temperature 98.9 F Pulse Rate 114 H Respiratory 16 Rate Blood Pressure 114/81 O2 Sat by Pulse 99 Oximetry Medical Decision Making - Medical Decision Making 49-year-old female patient who is postop day #15 after having bowel resection with Dr. Garcia, presents to the emergency department today for evaluation of drainage from her incision. She has anurag removed today at the lower portion of the incision did dehisced superficially she is draining a mixture of serous, bloody, purulent drainage. Did obtain a culture. Labs reviewed and reveal white blood cell count at 13.8. CT abdomen and pelvis is obtained and shows fat stranding and air bubbles in the lower anterior abdominal wall but no evidence f or abscess. She is afebrile, vital signs. I did discuss the case with on-call surgeon Dr. Rodarte. Symptoms are most likely related to seroma. She will be started on Keflex. We will discharge to call Dr. Garcia's office in the morning. Return parameters were discussed in detail. The patient verbalizes understanding and agrees with this plan. - Lab Data Result diagrams: 05/23/20 19:25 05/23/20 19:25 Lab Results 05/23/20 05/23/20 05/23/20 Range/Units 19:25 19:25 19:25 WBC 13.8 H (3.8-10.6) k/uL RBC 5.01 (3.80-5.40) m/uL Hgb 14.3 (11.4-16.0) gm/dL Hct 42.0 (34.0-46.0) % MCV 83.9 (80.0-100.0) fL MCH 28.6 (25.0-35.0) pg MCHC 34.1 (31.0-37.0) g/dL RDW 13.1 (11.5-15.5) % Plt Count 505 H (150-450) k/uL MPV 6.5 Neutrophils % 78 % Lymphocytes % 13 % Monocytes % 6 % Eosinophils % 2 % Basophils % 1 % Neutrophils # 10.7 H (1.3-7.7) k/uL Lymphocytes # 1.8 (1.0-4.8) k/uL Monocytes # 0.8 (0-1.0) k/uL Eosinophils # 0.3 (0-0.7) k/uL Basophils # 0.1 (0-0.2) k/uL Sodium 136 L (137-145) mmol/L Potassium 4.4 (3.5-5.1) mmol/L Chloride 105 (98-107) mmol/L Carbon Dioxide 23 (22-30) mmol/L Anion Gap 8 mmol/L BUN 20 H (7-17) mg/dL Creatinine 0.70 (0.52-1.04) mg/dL Est GFR (CKD-EPI)AfAm >90 (>60 ml/min/1.73 sqM) Est GFR (CKD-EPI)NonAf >90 (>60 ml/min/1.73 sqM) Glucose 129 H (74-99) mg/dL Plasma Lactic Acid Live 1.2 (0.7-2.0) mmol/L Calcium 9.0 (8.4-10.2) mg/dL Total Bilirubin 0.7 (0.2-1.3) mg/dL AST 29 (14-36) U/L ALT 32 (4-34) U/L Alkaline Phosphatase 105 (38-126) U/L Total Protein 7.0 (6.3-8.2) g/dL Albumin 3.8 (3.5-5.0) g/dL - Radiology Data Radiology results: report reviewed, image reviewed CT abdomen and pelvis with contrast obtained. Report is reviewed in its entirety. Impression by Dr. Rodriguez shows postsurgical changes with air bubbles and had trending with the lower anterior abdominal wall. No evidence of an abscess within the peritoneal cavity. No free fluid. Disposition Clinical Impression: Seroma after procedure, External incisional dehiscence Disposition: HOME SELF-CARE Condition: Good Instructions (If sedation given, give patient instructions): Wound Dehiscence (ED), Seroma (DC) Additional Instructions: Call Dr. Garcia in the morning for further instructions. Keep incision well- padded to collect any drainage. Complete antibiotic prescription in full. Return to the emergency department for any new, worsening, or concerning symptoms Prescriptions: Cephalexin [Keflex] 500 mg PO Q6HR #40 cap Is patient prescribed a controlled substance at d/c from ED?: No Referrals: Tyler Andrade MD [Primary Care Provider] - 1-2 days Darinel Garcia MD [STAFF PHYSICIAN] - 1-2 days Time of Disposition: 21:38
--- NOTE | 2020-05-23 21:17 | CT ---
EXAMINATION TYPE: CT abdomen pelvis w con DATE OF EXAM: 05/23/2020 COMPARISON: 02/10/2020 HISTORY: Recent bowel resection sx, drainage from incision. CT DLP: 1493.9 mGycm Automated exposure control for dose reduction was used. CONTRAST: Performed with IV Contrast, patient injected with 100 mL of Isovue 300. Images were obtained from the diaphragm to the floor the pelvis with IV contrast. Lung bases are clear of consolidation. There is no pleural effusion. Heart size is normal. Liver spleen pancreas stomach appear normal. Bile ducts are not dilated. Gallbladder is absent. There is no adrenal mass. Kidneys show satisfactory contrast opacification. There is no hydronephrosi s. Delayed images show normal renal excretion. There is no retroperitoneal adenopathy. Bladder distends smoothly. There is no inguinal hernia. There is no free fluid in the pelvis. There are postsurgical changes with air bubbles and fat stranding on the anterior abdominal wall extending into the umbilicus. I see no free fluid in the abdomen and pel vis. Appendix appears normal. There is no mesenteric edema. There is no ascites or free air. Lumbar vertebra have normal alignment. There is no compression fracture. Bony pelvis appears intact. The hip joints are intact. Sacroiliac joints are intact. IMPRESSION: Postsurgical changes with air bubbles and fat stranding within the lower anterior abdominal wall. No evidence of an abscess within the peritoneal cavity. No free fluid.
[2020-05-23] MEDS ORDERED: CEPHALEXIN 500MG STARTER PACK 4 CAP BTL PO STA (21:38)
[2020-05-23 22:21] VITALS: BP 122/77; PULSE 95
== END 2020-05-23 22:21 | disposition home or self-care (01) ==
LOC: EC 18:44
DX: L76.34 Postprocedural seroma of skin and subcutaneous tissue following other procedure (principal); T81.31XA Disruption of external operation (surgical) wound, not elsewhere classified, initial encounter; I10 Essential (primary) hypertension; Z79.899 Other long term (current) drug therapy; Z88.0 Allergy status to penicillin; Z88.1 Allergy status to other antibiotic agents; Z87.891 Personal history of nicotine dependence; Z90.49 Acquired absence of other specified parts of digestive tract; Z90.710 Acquired absence of both cervix and uterus
CPT/HCPCS: 99284; 36415; 80053; 83605; 85025; 87070; 87205; 74177; Q9967

== ENCOUNTER 2020-05-24 09:48 | Emergency (ER) | payer MEDICARE, OTHER ==
[2020-05-24 09:54] VITALS: RESP 18
--- NOTE | 2020-05-24 10:16 | ED ---
General Adult HPI - General Chief complaint: Skin/Abscess/Foreign Body Stated complaint: incision problem Time Seen by Provider: 05/24/20 09:55 Source: patient, RN notes reviewed Mode of arrival: ambulatory Limitations: no limitations - History of Present Illness Initial comments: 49-year-old female presents emergency Department with chief complaint of wound dehiscence. Patient was seen here yesterday on postop day 15 after bowel resection for diverticulitis by Dr. Garcia. Patient states that she was doing well states that she had her anurag removed yesterday and states that the wound opened up. She states is a large amount of drainage. She continues to have drainage which is bloody tinged, clear and some mucousy discharge. She states she has no pain fevers chills or night sweats. Patient contacted office today in which they advised her to come emergency department to be evaluated by Dr. Garcia. - Related Data Home Medications Medication Instructions Recorded Confirmed Losartan [Cozaar] 25 mg PO DAILY@1100 04/18/19 05/24/20 Previous Rx's Medication Instructions Recorded Cephalexin [Keflex] 500 mg PO Q6HR #40 cap 05/23/20 Sulfamethox-Tmp 800-160Mg [Bactrim 1 each PO Q12HR #20 tab 05/24/20 Ds] Allergies Allergy/AdvReac Type Severity Reaction Status Date / Time amoxicillin Allergy Anaphylaxis Verified 05/24/20 10:29 azithromycin Allergy Rash/Hives Verified 05/24/20 10:29 [From Zithromax Z-Jhonathan] ciprofloxacin Allergy Anaphylaxis Verified 05/24/20 10:29 Penicillins Allergy Anaphylaxis Verified 05/24/20 10:29 tetracycline Allergy Anaphylaxis Verified 05/24/20 10:29 Review of Systems ROS Statement: Those systems with pertinent positive or pertinent negative responses have been documented in the HPI. ROS Other: All systems not noted in ROS Statement are negative. Past Medical History Past Medical History: Hypertension, Pneumonia, Rheumatoid Arthritis (RA) Additional Past Medical History / Comment(s): Diverticulitis, small hiatal hernia, protein in urine History of Any Multi-Drug Resistant Organisms: None Reported Past Surgical History: Bowel Resection, Section, Cholecystectomy, Hysterectomy, Orthopedic Surgery, Tonsillectomy Additional Past Surgical History / Comment(s): L shoulder rotator cuff repair. abdominal adhesion surgery , sinus surgery, partial bowel resection Past Anesthesia/Blood Transfusion Reactions: Motion Sickness, Postoperative Nausea & Vomiting (PONV) Past Psychological History: No Psychological Hx Reported Smoking Status: Former smoker Past Alcohol Use History: None Reported Past Drug Use History: None Reported - Past Family History Mother Family Medical History: Myocardial Infarction ([place]) Father Family Medical History: Cancer Additional Family Medical History / Comment(s): Lung General Exam Limitations: no limitations General appearance: alert, in no apparent distress Head exam: Present: atraumatic, normocephalic, normal inspection Eye exam: Present: normal appearance, PERRL, EOMI. Absent: scleral icterus, conjunctival injection, periorbital swelling Neck exam: Present: normal inspection. Absent: tenderness, meningismus, lymphadenopathy Respiratory exam: Present: normal lung sounds bilaterally. Absent: respiratory distress, wheezes, rales, rhonchi, stridor Cardiovascular Exam: Present: regular rate, normal rhythm, normal heart sounds. Absent: systolic murmur, diastolic murmur, rubs, gallop, clicks GI/Abdominal exam: Present: soft, tenderness (Mild), normal bowel sounds, other (Lower incision wound dehiscence noted, there is some serosanguineous to mucousy discharge). Absent: distended, guarding, rebound, rigid Neurological exam: Present: alert, oriented X3 Skin exam: Present: warm, dry, intact, normal color. Absent: rash Course Vital Signs 05/24/20 09:49 Temperature 98 F Pulse Rate 111 H Respiratory 18 Rate Blood Pressure 121/81 O2 Sat by Pulse 98 Oximetry Medical Decision Making - Medical Decision Making Patient was evaluated by surgeon Dr. Garcia in emergency department. Patient was recommended to be discharged with an abdominal binder, Bactrim. Patient follow-up in office or return for any worsening change in symptoms. Disposition Clinical Impression: External incisional dehiscence Disposition: HOME SELF-CARE Condition: Stable Instructions (If sedation given, give patient instructions): Wound Dehiscence (ED) Additional Instructions: Please return to the Emergency Department if symptoms worsen or any other concerns. Prescriptions: Sulfamethox-Tmp 800-160Mg [Bactrim Ds] 1 each PO Q12HR #20 tab Is patient prescribed a controlled substance at d/c from ED?: No Referrals: Tyler Andrade MD [Primary Care Provider] - 1-2 days Darinel Garcia MD [STAFF PHYSICIAN] - 1-2 days Time of Disposition: 12:05
[2020-05-24 12:30] VITALS: BP 128/78; PULSE 78; TEMP 98.9
== END 2020-05-24 12:28 | disposition home or self-care (01) ==
LOC: EC 09:48
DX: T81.31XA Disruption of external operation (surgical) wound, not elsewhere classified, initial encounter (principal); I10 Essential (primary) hypertension; Z79.899 Other long term (current) drug therapy; Z88.0 Allergy status to penicillin; Z88.1 Allergy status to other antibiotic agents; Z87.891 Personal history of nicotine dependence; Z90.49 Acquired absence of other specified parts of digestive tract; Z90.710 Acquired absence of both cervix and uterus
CPT/HCPCS: 99283

== ENCOUNTER → 2020-12-23 | Outpatient (CLI) | payer MEDICARE, OTHER ==
--- NOTE | 2020-12-24 10:19 | MM ---
Reason for exam: screening (asymptomatic). Last mammogram was performed 2 years and 2 months ago. History: Patient is postmenopausal. Family history of breast cancer in paternal grandmother and breast cancer in paternal aunt. Physical Findings: A clinical breast exam by your physician is recommended on an annual basis and results should be correlated with mammographic findings. MG 3D Screening Mammo W/Cad Bilateral CC and MLO view(s) were taken. Prior study comparison: October 13, 2018, bilateral MG 3d screening mammo w/cad. October 05, 2017, bilateral MG screening mammo w CAD. The breast tissue is heterogeneously dense. This may lower the sensitivity of mammography. Stable benign calcifications. There is no discrete abnormality. No significant changes when compared with prior studies. ASSESSMENT: Benign, BI-RAD 2 RECOMMENDATION: Routine screening mammogram of both breasts in 1 year.
== END | disposition home or self-care (01) ==
LOC: RADMAMWWP 15:20
PROVIDERS: ATTEND Family Medicine
DX: Z12.31 Encounter for screening mammogram for malignant neoplasm of breast (principal); Z80.3 Family history of malignant neoplasm of breast
CPT/HCPCS: 77063; 77067

== ENCOUNTER → 2021-09-05 | Outpatient (CLI) | payer MEDICARE, OTHER ==
[2021-09-05 13:42] LABS: African American GFR (CKD) >90 (>60 ml/min/1.73 sqM); Blood Urea Nitrogen 16 mg/dL (7-17); Non-African American GFR(CKD) >90 (>60 ml/min/1.73 sqM)
--- NOTE | 2021-09-05 14:46 | CT ---
EXAMINATION TYPE: CT abdomen pelvis w con DATE OF EXAM: 09/05/2021 COMPARISON: 05/23/2020 INDICATION: h/o diverticulitis DLP: 1346.7 mGycm, Automated exposure control for dose reduction was used. CONTRAST: 100 mL of Isovue 300. Study performed with Oral Contrast TECHNIQUE: Axial images were obtained from above the diaphragm to the pubic rami in the axial plane a t 5 mm thick sections. Reconstructed images are reviewed on the computer in the coronal plane. FINDINGS: Limited CT sections are obtained the lung bases. The lung bases are clear. CT ABDOMEN: Liver: Normal Spleen: Normal Pancreas: Normal Adrenal glands: There is minimal nodularity of the left adrenal gland measuring 1.0 cm. Right adrenal gland appears normal Gallbladder: Normal Kidneys: No masses are evident. No hydronephrosis is present. No cysts are present. Delayed images were obtained through the kidneys, which remain unremarkable. Aorta: Minimal Vascular calcification is within the aorta. Inferior vena cava: Normal. CT PELVIS: Some minimal thickening of the terminal ileum may be present. Oral contrast present within small yasmin l loops. Oral contrast extends to the distal small bowel loops. The colon appears normal. No suspicio us distal colonic diverticulitis is evident. Postsurgical changes are at the distal sigmoid colon. No stenosis is evident. No inflammatory changes within the mesentery are evident. Appendix: Normal as visualized. Urinary bladder: Decompressed. Visualized urinary bladder appears unremarkable Genitourinary structures: Uterus appears normal. Adnexa are normal Osseous structures: No suspicious lytic or sclerotic lesions. IMPRESSIONS: 1. No suspicious changes suggest acute diverticulitis. 2. Postsurgical changes within the sigmoid colon without stenosis. 3. Minimal nodularity of the left adrenal gland may be adrenal adenoma. 4. Mild thickening of the terminal ileum is present. Correlate for ileitis.
== END | disposition home or self-care (01) ==
LOC: RADCTMAIN 12:34
PROVIDERS: ATTEND Surgery
DX: K57.33 Diverticulitis of large intestine without perforation or abscess with bleeding (principal)
CPT/HCPCS: 82565; 84520; 74177; 36415; Q9967

== ENCOUNTER 2021-09-11 09:08 | Day surgery (SDC) | payer MEDICARE, OTHER ==
[2021-09-09 09:22] VITALS: BMI 32.0
[~2021-09-11 09:08] MED LIST changes: -ACETAMINOPHEN TAB 500 MG TAB PO PRN; -CLINDAMYCIN 900 MG in DEXTROSE 5% IN WATER 50 ML IVPB PRN; -GENTAMICIN 320 MG in SODIUM CHLORIDE 0.9% 100 ML IVPB PRN; -HEPARIN SODIUM,PORCINE 5,000 UNIT/ML 1 ML VIAL SQ PRN; -HYDROmorphone 0.5 MG/0.5 ML SYRINGE IVP PRN; +LACTATED RINGERS 1,000 ML IV SCH; -LIDOCAINE 1% (10MG/ML) FOR IV START INTRADERMA PRN; -MIDAZOLAM 2 MG/2 ML VIAL IV PRN
[2021-09-11 09:32] VITALS: TEMP 98.2
[2021-09-11] MEDS ORDERED: diphenhydrAMINE 50 MG/ML 1 ML VIAL ONE (10:16)
[2021-09-11] MEDS ORDERED: PROPOFOL 10 MG/ML 20 ML VIAL IV ONE (10:16)
[2021-09-11] MEDS ORDERED: ONDANSETRON 4 MG/2 ML VIAL ONE (10:16)
--- NOTE | 2021-09-11 10:30 | P.GSHP ---
History of Present Illness H&P Date: 09/11/21 Chief Complaint: Left lower quadrant pain, diverticulitis This 50-year-old female said some complaints of left-sided abdominal pain. Patient rents today for colonoscopy. She is appears history of diverticulitis. Past Medical History Past Medical History: Eye Disorder, Hyperlipidemia, Hypertension, Pneumonia, Rheumatoid Arthritis (RA) Additional Past Medical History / Comment(s): Diverticulitis, small hiatal hernia, bilateral Scleritis. History of Any Multi-Drug Resistant Organisms: None Reported Past Surgical History: Bowel Resection, Section, Cholecystectomy, Hysterectomy, Orthopedic Surgery, Tonsillectomy Additional Past Surgical History / Comment(s): Left shoulder rotator cuff repair, abdominal adhesion surgery, sinus surgery, partial bowel resection, left bicep repair X2. Past Anesthesia/Blood Transfusion Reactions: Motion Sickness, Postoperative Nausea & Vomiting (PONV) Past Psychological History: No Psychological Hx Reported Smoking Status: Former smoker Past Alcohol Use History: None Reported Additional Past Alcohol Use History / Comment(s): Quit smoking 22+ years ago, smoked for 15 yrs, 1 PPD. Past Drug Use History: None Reported - Past Family History Mother Family Medical History: Myocardial Infarction ([place]) Additional Family Medical History / Comment(s): . Father Family Medical History: Cancer Additional Family Medical History / Comment(s): Lung cancer. Medications and Allergies Home Medications Medication Instructions Recorded Confirmed Type Atorvastatin Calcium [Lipitor] 20 mg PO DAILY 09/09/21 09/09/21 History Cholecalciferol [Vitamin D3 (25 50 mcg PO DAILY 09/09/21 09/09/21 History Mcg = 1000 Iu)] Losartan [Cozaar] 50 mg PO QAM 09/09/21 09/11/21 History Allergies Allergy/AdvReac Type Severity Reaction Status Date / Time amoxicillin Allergy Anaphylaxis Verified 09/11/21 09:27 azithromycin Allergy Rash/Hives Verified 09/11/21 09:27 [From Zithromax Z-Jhonathan] ciprofloxacin Allergy Anaphylaxis Verified 09/11/21 09:27 Penicillins Allergy Anaphylaxis Verified 09/11/21 09:27 tetracycline Allergy Anaphylaxis Verified 09/11/21 09:27 Surgical - Exam Vital Signs Temp Pulse Resp BP Pulse Ox 98.2 F 81 16 113/77 95 09/11/21 09:31 09/11/21 09:31 09/11/21 09:31 09/11/21 09:31 09/11/21 09:31 - General well developed, well nourished, no distress - Eyes PERRL - ENT normal pinna - Neck no masses - Respiratory normal expansion - Cardiovascular Rhythm: regular - Abdomen Abdomen: soft, non tender Assessment and Plan Assessment: Left sided pain History diverticula is We'll perform colonoscopy.
--- NOTE | 2021-09-11 10:40 | P.OP ---
Date of Procedure: 09/11/21 Preoperative Diagnosis: History of diverticulitis Postoperative Diagnosis: Mild diverticulosis Procedure(s) Performed: Colonoscopy Anesthesia: MAC Surgeon: Darinel Garcia Pathology: none sent Condition: stable Disposition: PACU Description of Procedure: The patient's placed on the endoscopy table. She received IV sedation. The patient's placed in the left lateral position. Digital rectal exam was performed. This revealed no ebonized. The flexible colonoscope was then placed patient anus and passed throughout the entire colon. The ileocecal valve was visualized. The cecum, ascending and transverse colon appeared normal. In the descending colon was a few scattered diverticula. The patient a previous sigmoid colectomy. The colorectal anastomosis visualized. This without any evidence of inflammation or stricture. The rectum appeared normal. Scope withdrawn for patient.
[2021-09-11 11:04] VITALS: BP 119/63; PULSE 77; RESP 18
== END 2021-09-11 11:30 | disposition home or self-care (01) ==
LOC: ORWHC2ENDO 09:08
PROVIDERS: ATTEND Surgery
DX: K57.90 Diverticulosis of intestine, part unspecified, without perforation or abscess without bleeding (principal); I10 Essential (primary) hypertension; E78.5 Hyperlipidemia, unspecified; M06.9 Rheumatoid arthritis, unspecified; Z80.1 Family history of malignant neoplasm of trachea, bronchus and lung; Z82.49 Family history of ischemic heart disease and other diseases of the circulatory system; Z87.891 Personal history of nicotine dependence; Z88.0 Allergy status to penicillin; Z79.899 Other long term (current) drug therapy; Z90.49 Acquired absence of other specified parts of digestive tract; Z88.8 Allergy status to other drugs, medicaments and biological substances
CPT/HCPCS: 45378; J1200; J2405; J2704

== ENCOUNTER → 2021-11-19 | Outpatient (CLI) | payer MEDICARE, OTHER ==
--- NOTE | 2021-11-20 04:48 | MR ---
EXAMINATION TYPE: MR lumbar spine wo/w con DATE OF EXAM: 11/19/2021 COMPARISON: None HISTORY: Pain in left side and back x9 months CONTRAST: Standard multiplanar, multisequence MRI departmental protocol images were obtained without contrast a nd with 8ml mL intravenous Gadavist gadolinium contrast. The lumbar vertebrae have normal alignment. Disc spaces are fairly normal for age. No compression fra cture. No lumbar spinal stenosis. There is small posterior concentric disc bulging at L4-5. There is no lumbar paraspinal mass. Facet joints are intact. The sacroiliac joints are intact. The ne ural foramina appear widely patent. The contrast images show no pathologic enhancement. IMPRESSION: Negative MR scan of the lumbar spine. Small posterior L4-5 lumbar disc herniation. No spinal stenosis . No fracture.
== END | disposition home or self-care (01) ==
LOC: RADMRIMAIN 19:30
PROVIDERS: ATTEND Family Medicine
DX: M51.26 Other intervertebral disc displacement, lumbar region (principal)
CPT/HCPCS: 72158; A9585

== ENCOUNTER → 2022-04-01 | Outpatient (CLI) | payer MEDICARE, OTHER ==
--- NOTE | 2022-04-02 18:31 | MM ---
Reason for Exam: Screening (asymptomatic). Last mammogram was performed 1 year(s) and 3 month(s) ago. Patient History: Menarche at age 14. First Full-Term at age 20. Right ovary removed at age 40. Hysterectomy at age 40. Postmenopausal. Paternal grandmother had breast cancer, age 55. Paternal aunt (Susan) had breast cancer under age 50. Risk Values: Joann 5 year model risk: 0.9%. NCI Lifetime model risk: 7.1%. Prior Study Comparison: 10/05/2017 Bilateral Screening Mammogram, [facility]. 10/13/2018 Bilateral Screening Mammogram, [facility]. 12/23/2020 Bilateral Screening Mammogram, [facility]. Tissue Density: There are scattered fibroglandular densities. Findings: Analyzed By CAD. There is no suspicious group of microcalcifications or new suspicious mass in either breast. Overall Assessment: Negative, BI-RAD 1 Management: Screening Mammogram of both breasts in 1 year. 1. Patient should continue monthly self breast exams. 2. A clinical breast exam by your physician is recommended on an annual basis. 3. This exam should not preclude additional follow-up of suspicious palpable abnormalities. Electronically signed and approved by: Kailey Jenkins M.D. Radiologist
== END | disposition home or self-care (01) ==
LOC: RADMAMWWP 13:04
PROVIDERS: ATTEND Family Medicine
DX: Z12.31 Encounter for screening mammogram for malignant neoplasm of breast (principal); Z80.3 Family history of malignant neoplasm of breast; Z78.0 Asymptomatic menopausal state
CPT/HCPCS: 77063; 77067

== ENCOUNTER 2022-10-08 07:58 | Day surgery (SDC) | payer MEDICARE, OTHER ==
[2022-10-06 12:01] VITALS: BMI 34.7
[~2022-10-08 07:58] MED LIST changes: +LIDOCAINE 1% (10MG/ML) FOR IV START INTRADERMA PRN
[2022-10-08 08:30] VITALS: RESP 16; TEMP 97.3
[2022-10-08 08:37] LABS: Glucose,Whole Blood 102 mg/dL (70-110)
[2022-10-08] MEDS ORDERED: PROPOFOL 10 MG/ML 20 ML VIAL IV ONE (08:43)
[2022-10-08] MEDS ORDERED: LIDOCAINE 2% INJ 20 MG/ML (2 ML VIAL) ONE (08:43)
--- NOTE | 2022-10-08 08:47 | P.GSHP ---
History of Present Illness H&P Date: 10/08/22 Chief Complaint: Change in bowel habits, rectal bleeding This a 51-year-old female who presents today for colonoscopy. Patient has had issues with rectal bleeding some fecal incontinence, diarrhea. She presents today for colonoscopy. Past Medical History Past Medical History: Hypertension, Pneumonia, Rheumatoid Arthritis (RA) Additional Past Medical History / Comment(s): Diverticulitis, small hiatal herni a, protein in urine, OZEMPIC FOR WGHT LOSS History of Any Multi-Drug Resistant Organisms: None Reported Past Surgical History: Bowel Resection, Section, Cholecystectomy, Hysterectomy, Orthopedic Surgery, Tonsillectomy Additional Past Surgical History / Comment(s): L shoulder rotator cuff repair. abdominal adhesion surgery , sinus surgery, partial bowel resection, COLONOSCOPY Past Anesthesia/Blood Transfusion Reactions: Motion Sickness, Postoperative Nausea & Vomiting (PONV) Smoking Status: Former smoker - Past Family History Mother Family Medical History: Myocardial Infarction ([place]) Additional Family Medical History / Comment(s): . Father Family Medical History: Cancer Additional Family Medical History / Comment(s): Lung cancer. Medications and Allergies Home Medications Medication Instructions Recorded Confirmed Type Cholecalciferol [Vitamin D3 (25 50 mcg PO DAILY 09/09/21 10/06/22 History Mcg = 1000 Iu)] Losartan [Cozaar] 50 mg PO QAM 09/09/21 10/06/22 History Semaglutide [Ozempic] 2 mg SQ MO 10/06/22 10/06/22 History Allergies Allergy/AdvReac Type Severity Reaction Status Date / Time amoxicillin Allergy Anaphylaxis Verified 10/08/22 08:12 azithromycin Allergy Rash/Hives Verified 10/08/22 08:12 [From Zithromax Z-Jhonathan] ciprofloxacin Allergy Anaphylaxis Verified 10/08/22 08:12 Penicillins Allergy Anaphylaxis Verified 10/08/22 08:12 tetracycline Allergy Anaphylaxis Verified 10/08/22 08:12 Surgical - Exam Vital Signs Temp Pulse Resp BP Pulse Ox 97.3 F L 89 16 123/84 97 10/08/22 08:20 10/08/22 08:20 10/08/22 08:20 10/08/22 08:20 10/08/22 08:20 - General well developed, well nourished, no distress - Eyes PERRL - ENT normal pinna - Neck no masses - Respiratory normal expansion - Cardiovascular Rhythm: regular - Abdomen Abdomen: soft Assessment and Plan Assessment: GI bleed, change in bowel habits We'll perform colonoscopy.
--- NOTE | 2022-10-08 08:58 | P.OP ---
Date of Procedure: 10/08/22 Preoperative Diagnosis: GI bleed Change in bowel habits Postoperative Diagnosis: Mild diverticulosis Procedure(s) Performed: Colonoscopy Anesthesia: MAC Surgeon: Darinel Garcia Pathology: none sent Condition: stable Disposition: PACU Description of Procedure: Patient's placed on the endoscopy table in the lateral position. She received IV sedation. Digital rectal exam was performed this revealed no abnormalities. Flexible colonoscope was then placed patient anus and passed throughout the entire colon. Patient had a previous low anterior resection. There was a colorectal anastomosis was visualized visualized. The cecum appeared normal. The right colon appeared normal. In the transverse colon there is mild diverticular changes. In the descending colon there was a few diverticular changes noted. The colorectal anastomosis was visualized. This appeared normal. The rectum was normal. Scope withdrawn for patient. There is no evidence of any rectal bleeding. The patient may have had bleeding from internal hemorrhoids or diverticular disease. However there is no bleeding seen today.
[2022-10-08 09:17] VITALS: BP 112/70; PULSE 72
== END 2022-10-08 09:28 | disposition home or self-care (01) ==
LOC: ORWHC2ENDO 07:58
PROVIDERS: ATTEND Surgery
DX: K57.30 Diverticulosis of large intestine without perforation or abscess without bleeding (principal); R19.4 Change in bowel habit; I10 Essential (primary) hypertension; J18.9 Pneumonia, unspecified organism; M06.9 Rheumatoid arthritis, unspecified; K44.9 Diaphragmatic hernia without obstruction or gangrene; K91.0 Vomiting following gastrointestinal surgery; Z98.84 Bariatric surgery status; Z98.891 History of uterine scar from previous surgery; Z90.49 Acquired absence of other specified parts of digestive tract; Z90.89 Acquired absence of other organs; Z90.710 Acquired absence of both cervix and uterus; Z98.890 Other specified postprocedural states; Z87.891 Personal history of nicotine dependence; Z82.49 Family history of ischemic heart disease and other diseases of the circulatory system; Z80.1 Family history of malignant neoplasm of trachea, bronchus and lung; Z88.0 Allergy status to penicillin; Z88.1 Allergy status to other antibiotic agents
CPT/HCPCS: 45378; J2704; J2001

== ENCOUNTER → 2023-05-24 | Outpatient (CLI) | payer MEDICARE, OTHER ==
--- NOTE | 2023-05-25 09:12 | MM ---
Reason for Exam: Screening (asymptomatic). Last mammogram was performed 1 year(s) and 2 month(s) ago. Patient History: Menarche at age 14. First Full-Term at age 20. Right ovary removed at age 40. Hysterectomy at age 40. Postmenopausal. Paternal grandmother had breast cancer, age 55. Paternal aunt (Susan) had breast cancer under age 50. Risk Values: Joann 5 year model risk: 0.9%. NCI Lifetime model risk: 7.0%. Prior Study Comparison: 10/13/2018 Bilateral Screening Mammogram, [facility]. 12/23/2020 Bilateral Screening Mammogram, [facility]. 04/01/2022 Bilateral MG 3D screening mammo w/cad, [facility]. Tissue Density: The breast tissue is heterogeneously dense. This may lower the sensitivity of mammography. Findings: Analyzed By CAD. There is no suspicious group of microcalcifications or new suspicious mass in either breast. Overall Assessment: Negative, BI-RAD 1 Management: Screening Mammogram of both breasts in 1 year. . Patient should continue monthly self-breast exams. A clinical breast exam by your physician is recommended on an annual basis. This exam should not preclude additional follow-up of suspicious palpable abnormalities. Note on Joann scores and lifetime risk: 1. A Joann score greater than 3% is considered moderate risk. If this is the case, consider specialist referral to assess eligibility for a risk reducing agent. 2. If overall lifetime risk for the development of breast cancer is 20% or higher, the patient may qualify for future screening with alternating mammogram and breast MRI. Electronically signed and approved by: Kailey Jenkins M.D. Radiologist
== END | disposition home or self-care (01) ==
LOC: RADMAMWWP 07:43
PROVIDERS: ATTEND Family Medicine
DX: Z12.31 Encounter for screening mammogram for malignant neoplasm of breast (principal); Z80.3 Family history of malignant neoplasm of breast; Z78.0 Asymptomatic menopausal state
CPT/HCPCS: 77063; 77067

== ENCOUNTER → 2024-08-24 | Outpatient (CLI) | payer MEDICARE, OTHER ==
--- NOTE | 2024-08-25 07:36 | MM ---
Reason for Exam: Screening (asymptomatic). Last mammogram was performed 1 year(s) and 3 month(s) ago. Patient History: Menarche at age 14. First Full-Term at age 20. Right ovary removed at age 40. Hysterectomy at age 40. Postmenopausal. Paternal grandmother had breast cancer, age 55. Paternal aunt (Susan) had breast cancer under age 50. Risk Values: Joann 5 year model risk: 0.9%. NCI Lifetime model risk: 6.9%. Prior Study Comparison: 12/23/2020 Bilateral Screening Mammogram, [facility]. 04/01/2022 Bilateral MG 3D screening mammo w/cad, [facility]. 05/24/2023 Bilateral MG 3D screening mammo w/cad, [facility]. Tissue Density: The breasts are heterogeneously dense, which may obscure small masses. Findings: Analyzed By CAD. There is no suspicious group of microcalcifications or new suspicious mass in either breast. Overall Assessment: Benign, BI-RAD 2 Management: Screening Mammogram of both breasts in 1 year. . Patient should continue monthly self-breast exams. A clinical breast exam by your physician is recommended on an annual basis. This exam should not preclude additional follow-up of suspicious palpable abnormalities. Note on Joann scores and lifetime risk: 1. A Joann score greater than 3% is considered moderate risk. If this is the case, consider specialist referral to assess eligibility for a risk reducing agent. 2. If overall lifetime risk for the development of breast cancer is 20% or higher, the patient may qualify for future screening with alternating mammogram and breast MRI. [facility], , 08/25/2024 7:33 AM. Electronically signed and approved by: Eduardo Walls M.D. Radiologis
== END | disposition home or self-care (01) ==
LOC: RADMAMWWP 15:11
PROVIDERS: ATTEND Family Medicine
DX: Z12.31 Encounter for screening mammogram for malignant neoplasm of breast (principal); R92.333 Mammographic heterogeneous density, bilateral breasts; Z78.0 Asymptomatic menopausal state; Z80.3 Family history of malignant neoplasm of breast
CPT/HCPCS: 77063; 77067

== ENCOUNTER → 2024-11-16 | Outpatient (CLI) | payer MEDICARE, OTHER ==
--- NOTE | 2024-11-16 12:50 | BD ---
EXAMINATION TYPE: Axial Bone Density DATE OF EXAM: 11/16/2024 CLINICAL HISTORY: 53 years old Female. 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 History of Fracture in Adulthood: No Secondary Osteoporosis: 1. Type 1 Diabetes: No 2. Hyperthyroidism: No 3. Menopause before 45: No 4. Malnutrition: No 5. Chronic liver disease: No Rheumatoid Arthritis: Yes in 1995 Current Tobacco Use: No RISK FACTORS HISTORY OF: Hip Fracture (Right/Left): No Spine Fracture: No History of Wrist Fracture: No Surgery to Spine/Hip(right/left)/Wrist (right/left): No MEDICATIONS: Thyroid Medications: No Osteoporosis Medications: No EXAM MEASUREMENTS: Bone mineral densitometry was performed using the independenceIT System. Bone mineral density as measured about the Lumbar spine is: ----- L1-L4(G/cm2): 1.363 T Score Values are as follows: ----- L1: -0.6 ----- L2: 0.5 ----- L3: 2.3 ----- L4: 3.2 ----- L1-L4: 1.5 Z Score Values are as follows: ----- L1: -0.4 ----- L2: 0.7 ----- L3: 2.4 ----- L4: 3.4 ----- L1-L4: 1.7 Baseline @MPH Bone mineral density about the R hip (g/cm2): 1.048 Bone mineral density about the L hip (g/cm2): 1.173 T Score values are as follows: -----R Neck: -0.2 -----L Neck: 0.3 -----R Total: 0.3 -----L Total: 1.3 Z Score values are as follows: -----R Neck: 0.4 -----L Neck: 0.9 -----R Total: 0.5 -----L Total: 1.5 Baseline @MPH FRAX%s: The graph provided illustrates a 7.8chance for a major osteoporotic fx and a 0.2chance for th e hips probability for fx in 10 years time. IMPRESSION: Normal (Values between +1 and -1 indicate normal bone mass). Consider repeating this study in 5 year s or sooner if there is some new clinical indication. NOTE: T-SCORE=SD OF THE YOUNG ADULT MEAN. [facility], , 11/16/2024 12:48 PM
== END | disposition home or self-care (01) ==
LOC: RADBDWWP 10:57
PROVIDERS: ATTEND Family Medicine
DX: M81.8 Other osteoporosis without current pathological fracture (principal); M06.9 Rheumatoid arthritis, unspecified; Z79.52 Long term (current) use of systemic steroids
CPT/HCPCS: 77080